=== PATIENT | female | born 1960 | race Caucasian/White ===

== ENCOUNTER 2016-09-30 14:25 | Emergency (ER) | payer BC ==
[2016-09-30 14:31] VITALS: BP 131/83; BMI 18.2
--- NOTE | 2016-09-30 15:29 | ED.ABDFE ---
HPI - PCP Primary Care Physician: MCKINLEY - Complaint Chief Complaint:: PT. C/O LOWER LEFT ABDOMINAL PAIN AND CRAMPING AND RECTAL BLEEDING. PT. STATES SHE WAS CONSTIPATED SATURDAY BUT THEN HAD DIARRHEA AFTER USING THE RESTROOM WHICH WAS BRIGHT RED IN COLOR. - Nurses notes reviewed Nurses Notes Review: Yes - Source History Provided: Patient - Mode of arrival Mode of Arrival: Ambulatory - Timing Onset of Chief Complaint: 09/27/16 PMH - PMH Past Medical History: Yes Past Medical History: COPD, Hypertension Past Medical History Comment: DIVERTICULITIS, FIBROMYALGIA, SPUR ON NECK Past Surgical History: Yes Surgical History: Hysterectomy, Tonsillectomy - Family History History of Family Medical Conditions: Yes Family Medical History: Cancer, [place], Coronary Artery Disease, Hypertension - Social History Does patient currently use any type of tobacco product: Yes Have you used tobacco products in the last 12 months: Yes Type of Tobacco Use: Cigarettes How many years tobacco product used: 30 Does any household member use tobacco: No Alcohol Use: Occasionally Do you use any recreational Drugs:: No Lives With: Spouse Lives Where: Home - infectious screening In the last 2 months have you had wt loss of >10#?: NO Have you had fever, night sweats or hemotysis?: No Have you traveled outside the country in the last 6 months?: No Isolation: Standard PE - Vital Signs Vitals: Temperature 98.3 F Pulse Rate 78 Respiratory Rate 18 Blood Pressure 131/83 O2 Sat by Pulse Oximetry 95 ROR - Labs Reviewed Result Diagrams: 09/30/16 15:37 09/30/16 15:37 Laboratory: WBC 9.4 X10^3/uL (3.6-10.0) 09/30/16 15:37 RBC 4.83 X10^6/uL (3.5-5.4) 09/30/16 15:37 Hgb 13.8 g/dL (12.0-16.0) 09/30/16 15:37 Hct 41.1 % (36.0-47.0) 09/30/16 15:37 MCV 85.1 fL (80.0-100.0) 09/30/16 15:37 MCH 28.6 pg (27.0-34.0) 09/30/16 15:37 MCHC 33.5 g/dL (33.0-35.0) 09/30/16 15:37 RDW 13.0 % (11.6-16.5) 09/30/16 15:37 Plt Count 255 X10^3/uL (150.0-450.0) 09/30/16 15:37 MPV 8.4 fL (7.4-11.0) 09/30/16 15:37 Neut % 65.4 % (42.0-75.0) 09/30/16 15:37 Lymph % 24.3 % (21.0-51.0) 09/30/16 15:37 [place] % 7.0 % (0.0-13.0) 09/30/16 15:37 Eos % 2.6 % (0.9-2.9) 09/30/16 15:37 Baso % 0.7 % (0.2-1.0) 09/30/16 15:37 Neut # 6.2 x10^3/uL (2.2-4.8) H 09/30/16 15:37 Lymph # 2.3 X10^3/uL (1.3-2.9) 09/30/16 15:37 [place] # 0.7 x10^3/uL (0.3-0.8) 09/30/16 15:37 Eos # 0.2 x10^3/uL (0.0-0.2) 09/30/16 15:37 Baso # 0.1 X10^3/uL (0.0-0.1) 09/30/16 15:37 Absolute Nucleated RBC 0.1 /100WBC 09/30/16 15:37 INR Target Range - 09/30/16 15:37 INR 0.99 (0.8-1.3) 09/30/16 15:37 PTT 24.3 SECONDS (22.9-36.5) 09/30/16 15:37 PTT Comment - 09/30/16 15:37 Sodium 143 mmol/L (136-145) 09/30/16 15:37 Corrected Sodium TNP 09/30/16 15:37 Potassium 3.0 mmol/L (3.5-5.1) L* 09/30/16 15:37 Chloride 107 mmol/L (98-107) 09/30/16 15:37 Carbon Dioxide 27.2 mmol/L (21-32) 09/30/16 15:37 BUN 8 mg/dL (7-18) 09/30/16 15:37 Creatinine 0.68 mg/dL (0.55-1.02) 09/30/16 15:37 Est GFR (MDRD) Af Amer > 60 (>60) 09/30/16 15:37 Est GFR (MDRD) Non-Af > 60 (>60) 09/30/16 15:37 Glucose 78 mg/dL (65-99) 09/30/16 15:37 Calcium 8.7 mg/dL (8.5-10.1) 09/30/16 15:37 Corrected Calcium TNP 09/30/16 15:37 Total Bilirubin 0.50 mg/dL (0.2-1.0) 09/30/16 15:37 AST 17 Units/L (15-37) 09/30/16 15:37 ALT 22 Units/L (12-78) 09/30/16 15:37 Alkaline Phosphatase 77 Units/L (46-116) 09/30/16 15:37 Total Protein 7.0 g/dL (6.4-8.2) 09/30/16 15:37 Albumin 3.6 g/dL (3.4-5.0) 09/30/16 15:37 Globulin 3.4 g/dL (2.5-4.5) 09/30/16 15:37 Albumin/Globulin Ratio 1.1 Ratio (1.1-2.1) 09/30/16 15:37 Specimen Type Clean catch urine 09/30/16 15:41 Urine Color Yellow (YELLOW) 09/30/16 15:41 Urine Appearance Hazy (CLEAR) 09/30/16 15:41 Urine pH 7.0 (5.0 - 8.0) 09/30/16 15:41 Ur Specific [place] 1.005 (1.000-1.030) 09/30/16 15:41 Urine Protein Negative (NEGATIVE) 09/30/16 15:41 Urine Glucose (UA) Negative (NEGATIVE) 09/30/16 15:41 Urine Ketones Negative (NEGATIVE) 09/30/16 15:41 Urine Occult Blood Negative (NEGATIVE) 09/30/16 15:41 Urine Nitrite Negative (NEGATIVE) 09/30/16 15:41 Urine Bilirubin Negative (NEGATIVE) 09/30/16 15:41 Urine Urobilinogen Normal (NORMAL) 09/30/16 15:41 Ur Leukocyte Esterase Negative (NEGATIVE) 09/30/16 15:41 Urine RBC 0-2 /HPF (NEGATIVE) 09/30/16 15:41 Urine WBC 3-5 /HPF (NEGATIVE) 09/30/16 15:41 Ur Squamous Epith Cells Rare /HPF (NEGATIVE) 09/30/16 15:41 Urine Bacteria Negative /HPF (NEGATIVE) 09/30/16 15:41 Ur Culture Indicated? No/not indicated 09/30/16 15:41 Stool Description Fob tube 09/30/16 15:55 Stl Occult Blood (IFOB) Positive (NEGATIVE) A 09/30/16 15:55 - Diagnosis Discharge Problem: Abdominal pain, GI bleed - Discharge Plan Condition: Stable Prescriptions: Pantoprazole Sodium 40 mg [Protonix Tab 40 mg] 40 mg PO DAILY #30 tab - Follow ups/Referrals Follow ups/Referrals: JESIKA SEN [Primary Care Provider] - 10/01/16 - Instructions Instructions: Gastrointestinal Bleeding, [id number], Abdominal Pain, Adult, [id number]
[2016-09-30 15:45] LABS: BASOPHILS # (AUTO) 0.1 X10^3/uL (0.0-0.1); BASOPHILS % (AUTO) 0.7 % (0.2-1.0); EOSINOPHILS # (AUTO) 0.2 x10^3/uL (0.0-0.2); EOSINOPHILS % (AUTO) 2.6 % (0.9-2.9); HEMATOCRIT 41.1 % (36.0-47.0); HEMOGLOBIN 13.8 g/dL (12.0-16.0); LYMPHOCYTES # (AUTO) 2.3 X10^3/uL (1.3-2.9); LYMPHOCYTES % (AUTO) 24.3 % (21.0-51.0); MEAN CORPUSCULAR HEMOGLOBIN 28.6 pg (27.0-34.0); MEAN CORPUSCULAR HGB CONC 33.5 g/dL (33.0-35.0); MEAN CORPUSCULAR VOLUME 85.1 fL (80.0-100.0); MEAN PLATELET VOLUME 8.4 fL (7.4-11.0); MONOCYTES # (AUTO) 0.7 x10^3/uL (0.3-0.8); NEUTROPHILS # (AUTO) 6.2 x10^3/uL (2.2-4.8); NEUTROPHILS % (AUTO) 65.4 % (42.0-75.0); PLATELET COUNT 255 X10^3/uL (150.0-450.0); RED BLOOD COUNT 4.83 X10^6/uL (3.5-5.4); WHITE BLOOD COUNT 9.4 X10^3/uL (3.6-10.0)
[2016-09-30 15:54] LABS: BLOOD UREA NITROGEN 8 mg/dL (7-18); CALCIUM 8.7 mg/dL (8.5-10.1); CARBON DIOXIDE 27.2 mmol/L (21-32); CHLORIDE 107 mmol/L (98-107); CREATININE 0.68 mg/dL (0.55-1.02); GLUCOSE 78 mg/dL (65-99); SODIUM 143 mmol/L (136-145); eGFR BLACK RACES > 60 (>60); eGFR NON BLACK RACES > 60 (>60)
[2016-09-30 15:59] LABS: ALANINE AMINOTRANSFERASE 22 Units/L (12-78); ALBUMIN 3.6 g/dL (3.4-5.0); ALKALINE PHOSPHATASE 77 Units/L (46-116); ASPARTATE AMINO TRANSFERASE 17 Units/L (15-37)
[2016-09-30 16:02] LABS: BILIRUBIN,URINE NEGATIVE (NEGATIVE); BLOOD/HEMOGLOBIN,URINE NEGATIVE (NEGATIVE); GLUCOSE, URINE NEGATIVE (NEGATIVE); KETONES,URINE NEGATIVE (NEGATIVE); LEUKOCYTE ESTERASE ,URINE NEGATIVE (NEGATIVE); NITRITES,URINE NEGATIVE (NEGATIVE); PROTEIN,URINE NEGATIVE (NEGATIVE); UROBILINOGEN,URINE NORMAL (NORMAL)
[2016-09-30 16:09] LABS: APPEARANCE,URINE HAZY (CLEAR); BACTERIA,URINE NEGATIVE /HPF (NEGATIVE); COLOR,URINE YELLOW (YELLOW); RBC,URINE 0-2 /HPF (NEGATIVE); SQUAMOUS EPITHELIAL CELL,UR RARE /HPF (NEGATIVE)
[2016-09-30] MEDS ORDERED: DEMEROL INJ IM ONE (17:03)
[2016-09-30] MEDS ORDERED: ZOFRAN INJ 4 MG VIAL IM ONE (17:03)
[2016-09-30] MEDS ORDERED: ZOFRAN INJ 4 MG VIAL ONE (17:17)
[2016-09-30] MEDS ORDERED: DEMEROL INJ ONE (17:18)
--- NOTE | 2016-09-30 17:43 | CT ---
HISTORY: Abdominal pain Study: CT abdomen and pelvis without contrast Comparison: None Technique: Multiple axial images of the abdomen and pelvis were obtained from the lung bases to the pubic symph ysis without the administration of IV contrast. Findings: Atelectasis and scarring are seen within the visualized lungs. The liver, spleen, pancreas, adrenals , and kidneys are grossly unremarkable in appearance given the limitations of this noncontrast exam. No CT evidence of hydronephrosis is identified. The appendix is partially air-filled and otherwise grossly unremarkable. Evaluation of the stomach, small bowel, and colon is limited without oral cont rast. There appears to be fluid within the cecum which is a nonspecific finding. Atherosclerotic mackenzie nges are seen within the visualized aorta. The urinary bladder is grossly unremarkable. Degenerative changes are seen within the visualized spine. If symptoms persist recommend continued followup for further evaluation. By history the uterus has been surgically removed. IMPRESSION: 1. No CT evidence of acute disease within the abdomen or pelvis is appreciated. Reported By:
[2016-09-30] MEDS ORDERED: POTASSIUM CHLORIDE LIQ 20 MEQ UDC PO ONE (17:52)
[2016-09-30] MEDS ORDERED: POTASSIUM CHLORIDE LIQ 20 MEQ UDC ONE (18:24)
[2016-09-30] MEDS ORDERED: PROTONIX TAB 40 MG PO ONE ×2 (18:24→18:27)
== END 2016-09-30 18:33 | disposition home or self-care (01) ==
LOC: ER 14:34
DX: K92.2 Gastrointestinal hemorrhage, unspecified (principal); R10.84 Generalized abdominal pain
CPT/HCPCS: 36415; 74176; 80053; 81001; 82270; 85025; 85610; 85730; 96372; 99282; 99283; J2175; J2405

== ENCOUNTER 2021-03-20 19:25 | Inpatient (IN) ==
[2021-03-20 19:46] VITALS: BMI 18.2
[2021-03-20 19:49] LABS: ABG BASE EXCESS -5.9 mmol/L (-2.0-2.0); ABG HCO3 19.5 mmol/L (22-26)
[2021-03-20] MEDS ORDERED: DUONEB 0.5 MG/3 MG (3 mL) NEB ONE ×2 (20:02→20:05)
[2021-03-20 20:04] LABS: BASOPHILS % (AUTO) 0.3 % (0.2-1.0); EOSINOPHILS # (AUTO) 0.1 x10^3/uL (0.0-0.2); EOSINOPHILS % (AUTO) 0.8 % (0.9-2.9); HEMATOCRIT 34.1 % (36.0-47.0); HEMOGLOBIN 11.4 g/dL (12.0-16.0); LYMPHOCYTES # (AUTO) 0.8 X10^3/uL (1.3-2.9); LYMPHOCYTES % (AUTO) 7.9 % (21.0-51.0); MEAN CORPUSCULAR HEMOGLOBIN 27.4 pg (27.0-34.0); MEAN CORPUSCULAR HGB CONC 33.4 g/dL (33.0-35.0); MEAN PLATELET VOLUME 7.5 fL (7.4-11.0); MONOCYTES # (AUTO) 0.5 x10^3/uL (0.3-0.8); MONOCYTES % (AUTO) 5.5 % (0.0-13.0); NEUTROPHILS # (AUTO) 8.3 x10^3/uL (2.2-4.8); NEUTROPHILS % (AUTO) 85.5 % (42.0-75.0); PLATELET COUNT 267 X10^3/uL (150.0-450.0); RED BLOOD COUNT 4.16 X10^6/uL (3.5-5.4); WHITE BLOOD COUNT 9.7 X10^3/uL (3.6-10.0)
[2021-03-20 20:11] LABS: ABG BASE EXCESS -6.1 mmol/L (-2.0-2.0); ABG HCO3 18.9 mmol/L (22-26)
[2021-03-20 20:23] LABS: ALANINE AMINOTRANSFERASE 16 Units/L (12-78); ALBUMIN 2.7 g/dL (3.4-5.0); ALKALINE PHOSPHATASE 79 Units/L (46-116); ASPARTATE AMINO TRANSFERASE 23 Units/L (15-37); BLOOD UREA NITROGEN 19 mg/dL (7-18); CARBON DIOXIDE 22.1 mmol/L (21-32); CHLORIDE 104 mmol/L (98-107); CREATINE KINASE 40 Units/L (26-192); CREATINE KINASE MB 2.4 ng/mL (0-4.0); CREATININE 1.03 mg/dL (0.55-1.02); MAGNESIUM 1.7 mg/dL (1.7-2.9); SODIUM 138 mmol/L (136-145); TOTAL PROTEIN 6.7 g/dL (6.4-8.2); TROPONIN I < 0.02 ng/mL (0-1.5); eGFR NON BLACK RACES 58 (>60)
--- NOTE | 2021-03-20 20:45 | DR.SOBA ---
HPI Time Seen Time Seen by Provider: 03/20/21 20:00 Primary Care Physician Primary Care Physician: ARIELLE HPI Comment HPI Comment: Worsening sob and wheezing x 10 days despite medications given at ER on 03/10; using nebulizers and on chronic oxygen which was on 5L when she came in; bipap placed prior to my arrival and most of hx obtained from who says he got home around 7pm and noted her situation deteriorating she's been intubated in the past but neither can tell me when; she does want to be intubated again if necessary Complaints Chief Complaint:: PT C/O BEING SOB SINCE 03-10-21 PT IS VAZQUEZ IN COLOR STUGGLING TO BREATH Source History Provided: Patient Mode of Arrival Mode of Arrival: Wheelchair Timing Onset of Chief Complaint: 03/10/21 PMH PMH Past Medical History: Yes Past Medical History: Arthritis, COPD and Hypertension Past Surgical History: Yes Surgical History: , Hysterectomy and Tonsillectomy Family History History of Family Medical Conditions: Yes Family Medical History: Cancer, [place], Coronary Artery Disease and Hypertension Social History Does any household member use tobacco: No Alcohol Use: None Do you use any recreational Drugs:: No Lives With: Spouse Lives Where: Home Infectious screening In the last 2 months have you had wt loss of >10#?: NO Have you had fever, night sweats or hemotysis?: No Have you traveled outside the country in the last 6 months?: No Isolation: Droplet ROS Review of Systems Constitutional: No Symptoms Reported Eyes: No Symptoms Reported ENTM: No Symptoms Reported Cardiovascular: No Symptoms Reported Gastrointestinal/Abdominal: No Symptoms Reported Genitourinary: No Symptoms Reported Neurological: No Symptoms Reported Musculoskeletal: No Symptoms Reported Integumentary: No Symptoms Reported Hematologic/Lymphatic: No Symptoms Reported Endocrine: No Symptoms Reported Psychiatric: No Symptoms Reported PE Vital Signs Vitals: Temperature 98.4 F Pulse Rate 81 Respiratory Rate 52 Blood Pressure [Left Arm] 138/67 Blood Pressure 117/58 O2 Sat by Pulse Oximetry 96 General Limitations: No Limitations General Appearance: Alert and In No Apparent Distress Head Head Exam: Normal Inspection Eyes Eye exam: Normal Appearance ENT ENT Exam: Normal Exam Neck Neck Exam: Normal Inspection Chest Chest Inspection: Normal Inspection and Symmetric Chest Wall Rise Respiratory Respiratory Exam: Accessory Muscle Use, Prolonged Expiratory Phase and Respiratory Distress Respiratory Exam: Bilateral: Wheezing (few scattered wheezes rt greater than lt) and Lower: Wheezing (few scattered wheezes rt greater than lt) Cardiovascular Cardiovascular Exam: Normal Rhythm and Tachycardia Abdominal Exam Abdominal Exam: Normal Inspection, Normal Bowel Sounds and Soft Extremities Extremities Exam: Normal Inspection Back Back Exam: Normal Inspection Neurologic Neurological Exam: Alert and Oriented X3 Psychiatric Psychiatric Exam: Normal Affect and Normal Mood Skin Skin Exam: Warm, Dry, Intact and Normal Color MDM Differential Diagnosis Differential Diagnosis: Asthma, COPD, Pneumonia, Pulmonary embolism, Respiratory Failure and Respiratory Insufficiency COURSE Reevaluation 1st: Unchanged 2nd: Improved (lying against railing with bipap in place) Consultation Call Returned: 00:00 (Dr Vieira accepts admission.) ROR Labs Reviewed Laboratory Results Reviewed?: Yes Result Diagrams: 03/20/21 19:52 03/20/21 19:52 Laboratory: WBC 9.7 X10^3/uL (3.6-10.0) 03/20/21 19:52 RBC 4.16 X10^6/uL (3.5-5.4) 03/20/21 19:52 Hgb 11.4 g/dL (12.0-16.0) L 03/20/21 19:52 Hct 34.1 % (36.0-47.0) L 03/20/21 19:52 MCV 82.0 fL (80.0-100.0) 03/20/21 19:52 MCH 27.4 pg (27.0-34.0) 03/20/21 19:52 MCHC 33.4 g/dL (33.0-35.0) 03/20/21 19:52 RDW 14.0 % (11.6-16.5) 03/20/21 19:52 Plt Count 267 X10^3/uL (150.0-450.0) 03/20/21 19:52 MPV 7.5 fL (7.4-11.0) 03/20/21 19:52 Neut % (Auto) 85.5 % (42.0-75.0) H 03/20/21 19:52 Lymph % (Auto) 7.9 % (21.0-51.0) L 03/20/21 19:52 [place] % (Auto) 5.5 % (0.0-13.0) 03/20/21 19:52 Eos % (Auto) 0.8 % (0.9-2.9) L 03/20/21 19:52 Baso % (Auto) 0.3 % (0.2-1.0) 03/20/21 19:52 Neut # (Auto) 8.3 x10^3/uL (2.2-4.8) H 03/20/21 19:52 Lymph # (Auto) 0.8 X10^3/uL (1.3-2.9) L 03/20/21 19:52 [place] # (Auto) 0.5 x10^3/uL (0.3-0.8) 03/20/21 19:52 Eos # (Auto) 0.1 x10^3/uL (0.0-0.2) 03/20/21 19:52 Baso # (Auto) 0.0 X10^3/uL (0.0-0.1) 03/20/21 19:52 Absolute Nucleated RBC 0.0 /100WBC 03/20/21 19:52 PT 13.4 SECONDS (11.8-14.3) 03/20/21 19:52 INR Target Range - 03/20/21 19:52 INR 1.07 (0.8-1.3) 03/20/21 19:52 APTT 24.8 SECONDS (22.9-36.5) 03/20/21 19:52 PTT Comment - 03/20/21 19:52 D-Dimer 3.42 ug/ml (0.0-0.57) H* 03/20/21 19:52 Sample Site Lb 03/20/21 20:04 ABG pH 7.340 (7.35-7.45) L 03/20/21 20:04 ABG pCO2 35.0 mmHg (35.0-45.0) 03/20/21 20:04 ABG pO2 68.0 mmHg (80.0-100.0) L 03/20/21 20:04 ABG HCO3 18.9 mmol/L (22-26) L 03/20/21 20:04 ABG O2 Saturation 92.0 % (90-100) 03/20/21 20:04 ABG Base Excess -6.1 mmol/L (-2.0-2.0) L 03/20/21 20:04 Laz Test N/a 03/20/21 20:04 A-a Gradient 530.0 mmHg 03/20/21 20:04 FiO2 90.0 03/20/21 20:04 Blood Gas Comments Tino well ae 03/20/21 20:04 Sodium 138 mmol/L (136-145) 03/20/21 19:52 Corrected Sodium TNP 03/20/21 19:52 Potassium 3.2 mmol/L (3.5-5.1) L 03/20/21 19:52 Chloride 104 mmol/L (98-107) 03/20/21 19:52 Carbon Dioxide 22.1 mmol/L (21-32) 03/20/21 19:52 BUN 19 mg/dL (7-18) H 03/20/21 19:52 Creatinine 1.03 mg/dL (0.55-1.02) H 03/20/21 19:52 Est GFR (MDRD) Af Amer > 60 (>60) 03/20/21 19:52 Est GFR (MDRD) Non-Af 58 (>60) L 03/20/21 19:52 Glucose 101 mg/dL (65-99) H 03/20/21 19:52 Calcium 8.0 mg/dL (8.5-10.1) L 03/20/21 19:52 Corrected Calcium 9.0 mg/dL (8.5-10.1) 03/20/21 19:52 Magnesium 1.7 mg/dL (1.7-2.9) 03/20/21 19:52 Total Bilirubin 0.40 mg/dL (0.2-1.0) 03/20/21 19:52 AST 23 Units/L (15-37) 03/20/21 19:52 ALT 16 Units/L (12-78) 03/20/21 19:52 Alkaline Phosphatase 79 Units/L (46-116) 03/20/21 19:52 Creatine Kinase 40 Units/L (26-192) 03/20/21 19:52 CK-MB (CK-2) 2.4 ng/mL (0-4.0) 03/20/21 19:52 CK/CKMB % Calc 6.0 % (<4) 03/20/21 19:52 Troponin I < 0.02 ng/mL (0-1.5) 03/20/21 19:52 B-Natriuretic Peptide 48.0 pg/mL (0-79) 03/20/21 19:52 Total Protein 6.7 g/dL (6.4-8.2) 03/20/21 19:52 Albumin 2.7 g/dL (3.4-5.0) L 03/20/21 19:52 Globulin 4.0 g/dL (2.5-4.5) 03/20/21 19:52 Albumin/Globulin Ratio 0.7 Ratio (1.1-2.1) L 03/20/21 19:52 Specimen Type Catherized urine 03/20/21 20:45 Urine Color Yellow (YELLOW) 03/20/21 20:45 Urine Appearance Clear (CLEAR) 03/20/21 20:45 Urine pH 6.0 (5.0 - 8.0) 03/20/21 20:45 Ur Specific [place] 1.010 (1.000-1.030) 03/20/21 20:45 Urine Protein 2+ (NEGATIVE) 03/20/21 20:45 Urine Glucose (UA) Negative (NEGATIVE) 03/20/21 20:45 Urine Ketones Negative (NEGATIVE) 03/20/21 20:45 Urine Occult Blood 1+ (NEGATIVE) 03/20/21 20:45 Urine Nitrite Negative (NEGATIVE) 03/20/21 20:45 Urine Bilirubin Negative (NEGATIVE) 03/20/21 20:45 Urine Urobilinogen Normal (NORMAL) 03/20/21 20:45 Ur Leukocyte Esterase Negative (NEGATIVE) 03/20/21 20:45 Urine RBC 5-10 /HPF (0-3) A 03/20/21 20:45 Urine WBC 3-5 /HPF (0-5) 03/20/21 20:45 Ur Squamous Epith Cells Rare /HPF (NEGATIVE) 03/20/21 20:45 Urine Bacteria Trace /HPF (NEGATIVE) 03/20/21 20:45 Ur Culture Indicated? No/not indicated 03/20/21 20:45 Other Results Comments: pO2 increased from 29 on 5L to 90 via bipap; admit and treat PE and copd exacerbation XRAY XRAY Interpreted by: Radiologist X-ray Results: cta: 1. Small amount of clot to the right upper lobe consistent with pulmonary embolus. 2. Right/left ventricular diameter ratio is 1.0 at the upper limits of normal. 3. COPD and interstitial fibrosis. cxr: 1. Bilateral lower lobe interstitial thickening and early alveolar opacities. Differential considerations include aspiration or edema. 2. Findings of COPD. Opioid Opioid Risk Tool Age ([place] box if 16-45): No History of Preadolescent Sexual Abuse: No Total: 0 Total Score Risk Category: Low Risk Copyright: [facility] predicting aberrant behaviors Diagnosis Discharge Problem: COPD exacerbation, Hypoxia, Pulmonary fibrosis Pulmonary embolism Qualifiers: Pulmonary embolism type: single subsegmental (without acute cor pulmonale) Qualified Code(s): I26.93 - Single subsegmental pulmonary embolism without acute cor pulmonale Instructions Forms: [facility] Social Distancing ADDITIONAL NOTES Additional Notes Additional Notes: 30+ min critical care time for: rul PE, resp failure requiring cpap, hypoxia, copd exacerbation O2 29 on 5L with sats in 30s; placed on cpap with significant improvement; abx and steroids administered as well; discussion re; admission, abx and steroids with paige wong d/aayush admitting doctor.
[2021-03-20 20:56] LABS: BILIRUBIN,URINE NEGATIVE (NEGATIVE); BLOOD/HEMOGLOBIN,URINE 1+ (NEGATIVE); GLUCOSE, URINE NEGATIVE (NEGATIVE); KETONES,URINE NEGATIVE (NEGATIVE); LEUKOCYTE ESTERASE ,URINE NEGATIVE (NEGATIVE); NITRITES,URINE NEGATIVE (NEGATIVE); PROTEIN,URINE 2+ (NEGATIVE); UROBILINOGEN,URINE NORMAL (NORMAL)
--- NOTE | 2021-03-20 21:00 | RAD ---
CHEST, 1 VIEWHISTORY: Shortness of breathStudy: AP view of the chest.Comparison:March 12, 2021Findings:The cardiomediastinal silhouette is normal. Bilateral lower lobe interstitial thickening and early alveolar opacities. Osseous structures demonstrate no acute abnormality. Bilateral hyperexpansion and interstitial prominence.IMPRESSION:1. Bilateral lower lobe interstitial thickening and early alveolar opacities. Differential considerations include aspiration or edema.2. Findings of COPD.Electronically signed by: SUE QUINN (Mar 20, 2021 20:58:46)
[2021-03-20 21:11] LABS: APPEARANCE,URINE CLEAR (CLEAR); BACTERIA,URINE TRACE /HPF (NEGATIVE); COLOR,URINE YELLOW (YELLOW); SQUAMOUS EPITHELIAL CELL,UR RARE /HPF (NEGATIVE)
[2021-03-20] MEDS ORDERED: SOLU-Medrol 125 MG VIAL IVP ONE (21:49)
[2021-03-20] MEDS ORDERED: ROCEPHIN 1 GRAM IV PREMIX 1 G/50 ML IV.SOLN. IV ONE ×2 (21:50→21:55)
[2021-03-20] MEDS ORDERED: SOLU-Medrol 125 MG VIAL ONE (21:55)
--- NOTE | 2021-03-20 23:42 | CT ---
PROCEDURE: CTA Chest .HISTORY: Hypoxia and respiratory failure.TECHNIQUE: Axial images were performed through the chest with the administration of IV contrast with multiplanar reformations . 3D and MIPS reconstructions were performed and reviewed. Dose reduction techniques including Automated Exposure Control (AEC) and adjustment of mA and kV were utilized .COMPARISON: None .TECHNICAL QUALITY: Satisfactory .FINDINGS:Mild atherosclerosis aorta with no aneurysm or dissection.There is some clot in secondary and tertiary branches extending to the anterior aspect of the right upper lobe consistent with mild pulmonary embolus. No other clot visualized.Mediastinum and hilar regions show no masses or lymphadenopathy.Normal size heart with no pericardial fluid. Right/left ventricular diameter ratio was 1.0.Emphysematous changes throughout both lung cast. Interstitial scarring at the bases with peripheral fibrosis. No pulmonary consolidation or masses. No pleural fluid.Visualized upper abdomen is unremarkable.No acute bony abnormality.IMPRESSION:1. Small amount of clot to the right upper lobe consistent with pulmonary embolus.2. Right/left ventricular diameter ratio is 1.0 at the upper limits of normal.3. COPD and interstitial fibrosis.Electronically signed by: Jonathan Rock (Mar 20, 2021 23:40:30)
[2021-03-21] MEDS ORDERED: ROCEPHIN VIAL 1 GRAM 1 G in NS 100 ML IV + SPIKE MINIBAG* 100 ML IV SCH (00:48)
[2021-03-21] MEDS: ELIQUIS PO SCH ×3 (03:18→20:17)
[2021-03-21] MEDS: NS 1,000 ML IV 1,000 ML IV SCH ×4 (03:18→18:02)
[2021-03-21] MEDS ORDERED: MILK OF MAGNESIA PO PRN (03:42)
[2021-03-21] MEDS: PROVENTIL NEB TX 0.083% 2.5MG/ 3ML NEB SCH ×5 (04:57→20:12)
[2021-03-21 05:32] LABS: BASOPHILS % (AUTO) 0.3 % (0.2-1.0); HEMATOCRIT 33.5 % (36.0-47.0); HEMOGLOBIN 11.2 g/dL (12.0-16.0); LYMPHOCYTES # (AUTO) 0.3 X10^3/uL (1.3-2.9); LYMPHOCYTES % (AUTO) 4.7 % (21.0-51.0); MEAN CORPUSCULAR HEMOGLOBIN 27.5 pg (27.0-34.0); MEAN CORPUSCULAR HGB CONC 33.4 g/dL (33.0-35.0); MEAN CORPUSCULAR VOLUME 82.1 fL (80.0-100.0); MONOCYTES # (AUTO) 0.1 x10^3/uL (0.3-0.8); MONOCYTES % (AUTO) 1.5 % (0.0-13.0); NEUTROPHILS # (AUTO) 6.3 x10^3/uL (2.2-4.8); NEUTROPHILS % (AUTO) 93.5 % (42.0-75.0); PLATELET COUNT 222 X10^3/uL (150.0-450.0); RED BLOOD COUNT 4.08 X10^6/uL (3.5-5.4); RED CELL DISTRIBUTION WIDTH 14.2 % (11.6-16.5); WHITE BLOOD COUNT 6.7 X10^3/uL (3.6-10.0)
[2021-03-21 05:43] LABS: ALANINE AMINOTRANSFERASE 15 Units/L (12-78); ALBUMIN 2.5 g/dL (3.4-5.0); ALKALINE PHOSPHATASE 73 Units/L (46-116); ASPARTATE AMINO TRANSFERASE 21 Units/L (15-37); BLOOD UREA NITROGEN 20 mg/dL (7-18); CARBON DIOXIDE 20.5 mmol/L (21-32); CHLORIDE 105 mmol/L (98-107); COR CA(FOR HYPOALB) 9.2 mg/dL (8.5-10.1); COR NA(FOR HYPERGLY) 139 mmol/L (136-145); CREATININE 0.92 mg/dL (0.55-1.02); SODIUM 139 mmol/L (136-145); TOTAL PROTEIN 6.4 g/dL (6.4-8.2); eGFR NON BLACK RACES > 60 (>60)
[2021-03-21 06:19] LABS: BAND NEUTROPHILS % 3 % (0-10); PLATELET MORPHOLOGY COMMENT NORMAL (NORMAL)
[2021-03-21] MEDS: PULMICORT NEB TX 0.5 MG NEB SCH ×2 (08:50→20:12)
[2021-03-21] MEDS ORDERED: ZESTRIL TAB 20 MG ONE (08:53)
[2021-03-21] MEDS ORDERED: SOLU-Medrol 125 MG VIAL IVP SCH (09:00)
[2021-03-21] MEDS ORDERED: PREDNISONE TAB 20 MG PO SCH (09:00)
[2021-03-21] MEDS: ALDACTONE TAB 25 MG PO SCH (09:08)
[2021-03-21] MEDS: DEPAKOTE D.R. TAB PO SCH (09:09)
[2021-03-21] MEDS: ZESTRIL TAB 20 MG PO SCH (09:09)
[2021-03-21] MEDS: CYMBALTA PO SCH ×2 (09:09→20:16)
[2021-03-21] MEDS ORDERED: ZITHROMAX INJ 500 MG VIAL 500 MG in NS 250 ML IV 250 ML IV SCH (09:27)
[2021-03-21] MEDS ORDERED: PERIACTIN TAB 4 MG PO PRN (09:30)
[2021-03-21] MEDS ORDERED: PULMICORT NEB TX 0.5 MG NEB SCH (09:45)
[2021-03-21] MEDS ORDERED: PHARMACY CONSULT - IVERMECTIN XX SCH ×2 (10:00)
[2021-03-21] MEDS: PEPCID TAB 40 MG PO SCH ×2 (10:30→20:18)
[2021-03-21] MEDS: VITAMIN D (1.25MG) PO SCH (10:31)
[2021-03-21] MEDS: LIPITOR TAB 80 MG PO SCH (10:31)
[2021-03-21] MEDS: IVERMECTIN PO SCH (10:31)
[2021-03-21] MEDS: THIAMINE HCL INJ IVP SCH ×2 (10:31→20:23)
[2021-03-21] MEDS: CYTOTEC PO SCH ×4 (10:31→20:17)
[2021-03-21] MEDS: PROTONIX INJ 40 MG VIAL IVP SCH ×2 (10:31→20:19)
[2021-03-21] MEDS: SOLU-Medrol 125 MG VIAL IVP SCH ×3 (10:32→20:22)
[2021-03-21] MEDS: ZINC SULFATE PO SCH ×2 (10:32→20:24)
[2021-03-21] MEDS: VITAMIN A PO SCH ×2 (10:32)
[2021-03-21] MEDS: ASCORBIC ACID INJ MULTI-DOSE VIAL 1,500 MG in NS 100 ML IV 100 ML IV SCH ×4 (10:33→20:13)
[2021-03-21] MEDS: MELATONIN PO SCH (20:18)
[2021-03-21] MEDS: ROCEPHIN VIAL 1 GRAM 1 G in NS 100 ML IV + SPIKE MINIBAG* 100 ML IV SCH (20:21)
[2021-03-21] MEDS ORDERED: COLACE CAP 100 MG PO SCH (21:00)
[2021-03-21] MEDS ORDERED: ROXICODONE TAB 5 MG PO PRN (22:31)
[2021-03-21] MEDS: CLEOCIN 600 MG IV PREMIX 600 MG/50 ML BAG IV SCH (23:01)
[2021-03-22] MEDS: ATIVAN INJ 2 MG VIAL IVP PRN ×3 (00:08→21:00)
[2021-03-22] MEDS: PROVENTIL NEB TX 0.083% 2.5MG/ 3ML NEB SCH ×6 (00:21→21:22)
[2021-03-22 00:38] LABS: ABG ALLEN TEST POS; ABG BASE EXCESS -4.8 mmol/L (-2.0-2.0); ABG HCO3 20.5 mmol/L (22-26)
[2021-03-22] MEDS: NS 1,000 ML IV 1,000 ML IV SCH ×2 (03:00→06:44)
[2021-03-22] MEDS: ASCORBIC ACID INJ MULTI-DOSE VIAL 1,500 MG in NS 100 ML IV 100 ML IV SCH ×4 (03:12→20:18)
[2021-03-22] MEDS: SOLU-Medrol 125 MG VIAL IVP SCH ×4 (03:15→20:22)
[2021-03-22 05:06] LABS: ABG ALLEN TEST POS; ABG BASE EXCESS -3.8 mmol/L (-2.0-2.0); ABG HCO3 20.7 mmol/L (22-26)
[2021-03-22 05:41] LABS: BASOPHILS % (AUTO) 0.3 % (0.2-1.0); EOSINOPHILS % (AUTO) 0.1 % (0.9-2.9); HEMOGLOBIN 9.6 g/dL (12.0-16.0); LYMPHOCYTES # (AUTO) 0.3 X10^3/uL (1.3-2.9); LYMPHOCYTES % (AUTO) 4.6 % (21.0-51.0); MEAN CORPUSCULAR HEMOGLOBIN 27.7 pg (27.0-34.0); MEAN CORPUSCULAR HGB CONC 33.3 g/dL (33.0-35.0); MEAN CORPUSCULAR VOLUME 83.3 fL (80.0-100.0); MEAN PLATELET VOLUME 7.8 fL (7.4-11.0); MONOCYTES # (AUTO) 0.3 x10^3/uL (0.3-0.8); MONOCYTES % (AUTO) 5.3 % (0.0-13.0); NEUTROPHILS # (AUTO) 5.5 x10^3/uL (2.2-4.8); NEUTROPHILS % (AUTO) 89.7 % (42.0-75.0); PLATELET COUNT 213 X10^3/uL (150.0-450.0); RED BLOOD COUNT 3.48 X10^6/uL (3.5-5.4); RED CELL DISTRIBUTION WIDTH 14.2 % (11.6-16.5); WHITE BLOOD COUNT 6.2 X10^3/uL (3.6-10.0)
[2021-03-22 05:56] LABS: ALANINE AMINOTRANSFERASE 13 Units/L (12-78); ALBUMIN 2.3 g/dL (3.4-5.0); ALKALINE PHOSPHATASE 72 Units/L (46-116); ASPARTATE AMINO TRANSFERASE 20 Units/L (15-37); BLOOD UREA NITROGEN 25 mg/dL (7-18); CALCIUM 7.7 mg/dL (8.5-10.1); CARBON DIOXIDE 20.4 mmol/L (21-32); CHLORIDE 111 mmol/L (98-107); COR CA(FOR HYPOALB) 9.1 mg/dL (8.5-10.1); COR NA(FOR HYPERGLY) 147 mmol/L (136-145); CREATININE 1.02 mg/dL (0.55-1.02); SODIUM 145 mmol/L (136-145); TOTAL PROTEIN 5.7 g/dL (6.4-8.2); eGFR NON BLACK RACES 59 (>60)
[2021-03-22] MEDS ORDERED: POTASSIUM CHLORIDE LIQ 20 MEQ UDC PO PRN (06:01)
[2021-03-22] MEDS ORDERED: KLOR-CON PO PRN (06:01)
[2021-03-22] MEDS ORDERED: POTASSIUM CHL 60 MEQ/NS 0.45% 500 ML IV PRN (06:01)
[2021-03-22] MEDS ORDERED: MAGNESIUM SULFATE 1 GRAM/100 mL PREMIX 1 G/100 ML BAG IV PRN (06:01)
[2021-03-22] MEDS ORDERED: K-DUR TAB 20 MEQ PO PRN (06:01)
[2021-03-22] MEDS ORDERED: MICRO K EXTEN CAP 10 MEQ PO PRN (06:01)
[2021-03-22] MEDS ORDERED: POTASSIUM CHL 40 MEQ/NS 0.45% 500 ML IV PRN (06:01)
[2021-03-22] MEDS: CLEOCIN 600 MG IV PREMIX 600 MG/50 ML BAG IV SCH ×3 (06:31→22:54)
[2021-03-22] MEDS: K-RIDER 10 MEQ/NS 100 ML 10 MEQ/100 ML BAG IV PRN (06:44)
[2021-03-22] MEDS: PULMICORT NEB TX 0.5 MG NEB SCH ×2 (08:45→21:22)
[2021-03-22] MEDS ORDERED: SODIUM CHLORIDE IV NR (09:00)
[2021-03-22] MEDS ORDERED: POTASSIUM CHLORIDE IV NR (09:00)
[2021-03-22] MEDS ORDERED: ZESTRIL TAB 20 MG ONE (09:02)
[2021-03-22] MEDS: CYTOTEC PO SCH ×3 (09:11→12:14)
[2021-03-22] MEDS: CYMBALTA PO SCH (09:11)
[2021-03-22] MEDS: PROTONIX INJ 40 MG VIAL IVP SCH ×2 (09:23→20:21)
[2021-03-22] MEDS: ALDACTONE TAB 25 MG PO SCH ×3 (09:23→12:11)
[2021-03-22] MEDS: PEPCID TAB 40 MG PO SCH ×2 (09:24→12:12)
[2021-03-22] MEDS: ZESTRIL TAB 20 MG PO SCH (09:24)
[2021-03-22] MEDS: ZINC SULFATE PO SCH ×2 (09:25→12:12)
[2021-03-22] MEDS: VITAMIN D (1.25MG) PO SCH ×2 (09:25→12:11)
[2021-03-22] MEDS: THIAMINE HCL INJ IVP SCH ×2 (09:25→20:25)
[2021-03-22] MEDS: VITAMIN A PO SCH ×2 (09:25→12:11)
[2021-03-22] MEDS: LIPITOR TAB 80 MG PO SCH ×2 (09:26→12:12)
[2021-03-22] MEDS: IVERMECTIN PO SCH ×2 (09:26→12:10)
[2021-03-22] MEDS: ELIQUIS PO SCH ×2 (09:27→12:11)
[2021-03-22] MEDS: DEPAKOTE D.R. TAB PO SCH ×2 (09:27→12:13)
[2021-03-22] MEDS ORDERED: FLUVOXAMINE MALEATE PO SCH (10:00)
[2021-03-22] MEDS: LR 1,000 ML IV 1,000 ML IV SCH ×2 (10:11→18:27)
[2021-03-22] MEDS: FLUVOXAMINE MALEATE PO SCH (11:13)
[2021-03-22] MEDS ORDERED: APRESOLINE INJ 20 MG VIAL IVP PRN (12:33)
[2021-03-22] MEDS: LOVENOX INJ 60 MG SYR SC SCH ×2 (13:38→20:19)
[2021-03-22] MEDS: PEPCID 20 MG IV PREMIX* 20 MG/50 ML BAG IV SCH ×2 (13:39→21:00)
[2021-03-22 21:24] LABS: ABG ALLEN TEST POS; ABG BASE EXCESS -5.7 mmol/L (-2.0-2.0); ABG HCO3 19.4 mmol/L (22-26)
[2021-03-22 21:26] LABS: BASOPHILS % (AUTO) 0.2 % (0.2-1.0); HEMATOCRIT 28.5 % (36.0-47.0); HEMOGLOBIN 9.6 g/dL (12.0-16.0); LYMPHOCYTES # (AUTO) 0.3 X10^3/uL (1.3-2.9); LYMPHOCYTES % (AUTO) 2.5 % (21.0-51.0); MEAN CORPUSCULAR HEMOGLOBIN 27.8 pg (27.0-34.0); MEAN CORPUSCULAR HGB CONC 33.8 g/dL (33.0-35.0); MEAN CORPUSCULAR VOLUME 82.4 fL (80.0-100.0); MEAN PLATELET VOLUME 7.8 fL (7.4-11.0); MONOCYTES # (AUTO) 0.5 x10^3/uL (0.3-0.8); MONOCYTES % (AUTO) 5.3 % (0.0-13.0); NEUTROPHILS # (AUTO) 9.4 x10^3/uL (2.2-4.8); PLATELET COUNT 288 X10^3/uL (150.0-450.0); RED BLOOD COUNT 3.46 X10^6/uL (3.5-5.4); RED CELL DISTRIBUTION WIDTH 14.4 % (11.6-16.5); WHITE BLOOD COUNT 10.2 X10^3/uL (3.6-10.0)
[2021-03-22 21:35] LABS: ALANINE AMINOTRANSFERASE 16 Units/L (12-78); ALBUMIN 2.4 g/dL (3.4-5.0); ALKALINE PHOSPHATASE 80 Units/L (46-116); ASPARTATE AMINO TRANSFERASE 21 Units/L (15-37); BLOOD UREA NITROGEN 26 mg/dL (7-18); CALCIUM 7.8 mg/dL (8.5-10.1); CARBON DIOXIDE 21.3 mmol/L (21-32); CHLORIDE 113 mmol/L (98-107); COR CA(FOR HYPOALB) 9.1 mg/dL (8.5-10.1); COR NA(FOR HYPERGLY) 150 mmol/L (136-145); CREATININE 1.14 mg/dL (0.55-1.02); SODIUM 148 mmol/L (136-145); TOTAL PROTEIN 5.7 g/dL (6.4-8.2); eGFR NON BLACK RACES 52 (>60)
[2021-03-22] MEDS: ROCEPHIN VIAL 1 GRAM 1 G in NS 100 ML IV + SPIKE MINIBAG* 100 ML IV SCH (21:36)
[2021-03-22 21:52] LABS: PLATELET MORPHOLOGY COMMENT NORMAL (NORMAL)
--- NOTE | 2021-03-22 22:03 | RAD ---
PROCEDURE: Chest X-ray 1 View .HISTORY: RESPIRATORY FAILURE .TECHNIQUE: AP view .COMPARISON: 03/20/2021.TECHNICAL QUALITY: Satisfactory .FINDINGS:Normal size heart .Mediastinum and hilar regions show no masses or lymphadenopathy .Normal central vascularity .Increasing consolidation right lung base consistent with pneumonia. Unchanged hyper expansion and hyperlucency of the lungs. No pleural fluid or pneumothorax.No acute bony abnormality .IMPRESSION:1. Increasing pneumonia right lung base.2. COPD.Electronically signed by: Jonathan Rock (Mar 22, 2021 22:01:04)
[2021-03-22] MEDS ORDERED: DIPRIVAN VIAL 20 ML ONE (22:40)
[2021-03-22] MEDS ORDERED: QUELICIN (OR ANECTINE) ONE (22:42)
[2021-03-22] MEDS ORDERED: DIPRIVAN PREMIX 1 GRAM IV 1,000 MG/100 ML VIAL ONE (22:58)
[2021-03-23] MEDS: PROVENTIL NEB TX 0.083% 2.5MG/ 3ML NEB SCH ×6 (00:32→20:40)
[2021-03-23 00:34] LABS: ABG ALLEN TEST POS; ABG BASE EXCESS -5.9 mmol/L (-2.0-2.0); ABG HCO3 21.5 mmol/L (22-26)
[2021-03-23] MEDS: DIPRIVAN PREMIX 1 GRAM IV 1,000 MG/100 ML VIAL IV PRN ×2 (00:47→15:14)
--- NOTE | 2021-03-23 00:51 | DR.OPNOTE ---
OP NOTE Pre-Op Diagnosis: Covid pneumonia, lack of IV access Post-Op Diagnosis: same Procedure Date Date Of Procedure: 03/23/21 Procedure: This patient was in the ICU and Was already Intubated. She was placed in Trendelenburg position and the left chest and left neck were prepped and draped in sterile fashion. Skin underlying the left clavicle infiltrated with 1% Xylocaine as well as the left chest wall. 16-gauge needle use to puncture the left subclavian vein with aspiration of blood and placement of guidewire. Skin incised over the guide wire with a number 11 knife blade and dilator placed over the guide wire into the left subclavian vein. Dilator removed and the triple Lumen catheter threaded over the guide wire into the left subclavian vein. Guidewire was removed and all ports aspirated of blood and flushed with heparinized saline solution. The catheter secured to the Skin Within interrupted silk sutures . Bio-patch placed around the entrance to the skin. Post procedure chest x-ray shows good placement with no pneumothorax. Type of Anesthesia: Local (1 % Xylocaine ) EBL: minimal Complications:: none Disposition/Condition: Pt. tolerated procedure without difficulty.
--- NOTE | 2021-03-23 01:19 | RAD ---
PROCEDURE: Chest X-ray 1 View .HISTORY: ET TUBE PLACEMENT .TECHNIQUE: AP view .COMPARISON: 03/22/2021 chest x-ray done at 9:30 p.m..TECHNICAL QUALITY: Satisfactory .FINDINGS:Endotracheal tube in place with the tip 5 cm above the rupal. NG tube tip in the stomach.Unremarkable cardio mediastinal silhouette.Normal central vascularity.Unchanged pneumonia right base and COPD.IMPRESSION:1. Good endotracheal tube placement.2. Unchanged right basilar pneumonia and COPD.Electronically signed by: Jonathan Rock (Mar 23, 2021 01:17:22)
--- NOTE | 2021-03-23 01:20 | RAD ---
PROCEDURE: Abdomen X-ray 1 View .HISTORY: NG TUBE PLACEMENT .TECHNIQUE: AP supine abdomen view .COMPARISON: 12/25/2018.TECHNICAL QUALITY: Satisfactory .FINDINGS:NG tube tip projected over fundus of the stomach. Side hole is at the GE junction and repositioning more distally 5-10 cm recommended.No dilated bowel loops.IMPRESSION:NG tube tip in the fundus of the stomach with the side hole at the GE junction and repositioning more distally 5-10 cm recommended.Electronically signed by: Jonathan Rock (Mar 23, 2021 01:19:04)
--- NOTE | 2021-03-23 01:23 | RAD ---
PROCEDURE: Chest X-ray 1 View .HISTORY: CENTRAL LINE PLACEMENT .TECHNIQUE: AP view .COMPARISON: 03/22/2021.TECHNICAL QUALITY: Satisfactory .FINDINGS:Left subclavian central venous line in place with the tip projected over the distal superior vena cava. Endotracheal and NG tube in place.Continued pneumonia right base and emphysema. No pneumothorax. Suspected skin fold projected over both upper lobe regions between the 4th and 5th ribs.IMPRESSION:Good left subclavian central venous line placement with no pneumothorax.Electronically signed by: Jonathan Rock (Mar 23, 2021 01:21:54)
[2021-03-23] MEDS ORDERED: HALDOL INJ IM PRN (01:45)
[2021-03-23] MEDS ORDERED: HALDOL INJ IVP PRN (01:46)
[2021-03-23] MEDS: LR 1,000 ML IV 1,000 ML IV SCH ×3 (02:31→18:25)
[2021-03-23] MEDS: ASCORBIC ACID INJ MULTI-DOSE VIAL 1,500 MG in NS 100 ML IV 100 ML IV SCH ×4 (03:12→20:57)
[2021-03-23] MEDS: SOLU-Medrol 125 MG VIAL IVP SCH ×4 (03:12→21:01)
--- NOTE | 2021-03-23 04:31 | RAD ---
PROCEDURE: Abdomen X-ray 1 View .HISTORY: NG TUBE ADVANCEMENT .TECHNIQUE: AP supine abdomen view .COMPARISON: 03/22/2021.TECHNICAL QUALITY: Satisfactory .FINDINGS:There has been advancement of the patient's NG tube with the tip in the body of the stomach in good position.IMPRESSION:Good NG-tube placement.Electronically signed by: Jonathan Rock (Mar 23, 2021 04:29:14)
--- NOTE | 2021-03-23 04:32 | RAD ---
PROCEDURE: Chest X-ray 1 View .HISTORY: COVID+, VENTILATOR DEPENDENCE .TECHNIQUE: AP view .COMPARISON: 03/23/2021 chest x-ray done at 12:08 a.m..TECHNICAL QUALITY: Satisfactory .FINDINGS:Endotracheal tube, NG tube, and left subclavian lines in good position.Unchanged start size upper limits of normal.Mediastinum and hilar regions show no masses or lymphadenopathy .Normal central vascularity .Unchanged right basilar pneumonia with COPD and interstitial fibrosis.No acute bony abnormality .IMPRESSION:Unchanged right basilar pneumonia.Electronically signed by: Jonathan Rock (Mar 23, 2021 04:31:33)
[2021-03-23 04:34] LABS: ABG BASE EXCESS -5.3 mmol/L (-2.0-2.0); ABG HCO3 23.2 mmol/L (22-26)
[2021-03-23 04:36] LABS: ABG ALLEN TEST POS
[2021-03-23 04:50] LABS: BASOPHILS # (AUTO) 0.1 X10^3/uL (0.0-0.1); HEMATOCRIT 28.1 % (36.0-47.0); HEMOGLOBIN 9.3 g/dL (12.0-16.0); LYMPHOCYTES # (AUTO) 0.2 X10^3/uL (1.3-2.9); LYMPHOCYTES % (AUTO) 1.5 % (21.0-51.0); MEAN CORPUSCULAR HEMOGLOBIN 27.3 pg (27.0-34.0); MEAN CORPUSCULAR HGB CONC 33.1 g/dL (33.0-35.0); MEAN CORPUSCULAR VOLUME 82.6 fL (80.0-100.0); MEAN PLATELET VOLUME 8.2 fL (7.4-11.0); MONOCYTES # (AUTO) 0.8 x10^3/uL (0.3-0.8); MONOCYTES % (AUTO) 5.4 % (0.0-13.0); NEUTROPHILS # (AUTO) 13.2 x10^3/uL (2.2-4.8); NEUTROPHILS % (AUTO) 92.1 % (42.0-75.0); PLATELET COUNT 337 X10^3/uL (150.0-450.0); RED CELL DISTRIBUTION WIDTH 14.6 % (11.6-16.5); WHITE BLOOD COUNT 14.4 X10^3/uL (3.6-10.0)
[2021-03-23 05:01] LABS: ALANINE AMINOTRANSFERASE 17 Units/L (12-78); ALBUMIN 2.5 g/dL (3.4-5.0); ALKALINE PHOSPHATASE 77 Units/L (46-116); ASPARTATE AMINO TRANSFERASE 22 Units/L (15-37); BLOOD UREA NITROGEN 27 mg/dL (7-18); CALCIUM 7.8 mg/dL (8.5-10.1); CARBON DIOXIDE 21.6 mmol/L (21-32); COR NA(FOR HYPERGLY) 150 mmol/L (136-145); CREATININE 1.08 mg/dL (0.55-1.02); SODIUM 149 mmol/L (136-145); TOTAL PROTEIN 5.8 g/dL (6.4-8.2); eGFR NON BLACK RACES 55 (>60)
[2021-03-23 05:07] LABS: PLATELET MORPHOLOGY COMMENT NORMAL (NORMAL)
[2021-03-23 05:09] LABS: CHLORIDE 116 mmol/L (98-107)
[2021-03-23] MEDS ORDERED: VERSED IV PREMIX 100 MG/100 ML IV.SOLN IV ONE (05:21)
[2021-03-23] MEDS: CLEOCIN 600 MG IV PREMIX 600 MG/50 ML BAG IV SCH (05:29)
[2021-03-23] MEDS: VERSED IV PREMIX IV PRN ×2 (05:53→06:10)
[2021-03-23 06:14] LABS: ABG ALLEN TEST POS; ABG BASE EXCESS -3.6 mmol/L (-2.0-2.0); ABG HCO3 22.7 mmol/L (22-26)
[2021-03-23] MEDS: VERSED IV PREMIX 100 MG/100 ML IV.SOLN IV PRN ×3 (06:22→18:27)
[2021-03-23] MEDS: PULMICORT NEB TX 0.5 MG NEB SCH ×2 (08:45→20:40)
[2021-03-23] MEDS: ZOSYN VIAL 4.5 GRAMS 4.5 G in NS 100 ML IV + SPIKE MINIBAG* 100 ML IV SCH ×3 (08:56→22:50)
[2021-03-23] MEDS ORDERED: IVERMECTIN PO SCH (09:00)
[2021-03-23] MEDS: PROTONIX INJ 40 MG VIAL IVP SCH ×2 (09:57→21:01)
[2021-03-23] MEDS: PEPCID 20 MG IV PREMIX* 20 MG/50 ML BAG IV SCH ×2 (09:57→20:58)
[2021-03-23] MEDS: ZITHROMAX INJ 500 MG VIAL 500 MG in NS 250 ML IV 250 ML IV SCH (09:58)
[2021-03-23] MEDS: THIAMINE HCL INJ IVP SCH ×2 (09:59→21:01)
[2021-03-23] MEDS: LOVENOX INJ 60 MG SYR SC SCH ×2 (10:00→20:57)
--- NOTE | 2021-03-23 10:51 | PCM.PROG ---
Progress Note Progress Note for Day of Date of Exam: 03/23/21 Subjective Subjective: Pt is a 60-year-old female admitted for COVID-19 pneumonia, Acute Respiratory Failure, and pulmonary embolism. Overnight patient's respiratory status acutely declined and she required intubation and placed on mechanical ventilation. She is currently on propofol and versed gtt. Ventilation settings: SIMV, Rate 24, TV 400, PEEP 10, FiO2 100%. Labs/imaging: Wbc 14.4, Hgb 9.3, Plt 337, Na 149, K 4.0, Creatinine 1.08, Glucose 140, CRP 9.7, ABG: pH 7.31, pCO2 45, pO2 67, HCO3 22, O2sat 91%, on FiO2 100%. CXR: unchanged right basilar pneumonia. KUB: NGT in place. Pt is receiving pneumonia protocol that includes: IVF LR@125 ml/h, Solumedrol 250mg q6h, scheduled Bronchodilators, Antibiotics: Zosyn and Zithromax, immune supporting supplements, supplemental O2, SSI, I/S, Lovenox 60mg BID, Respiratory therapy consult. Continue with current treatment plan. Wean FiO2 as tolerated. Will continue to closely monitor and follow up labs/imaging. Critical care time spent 30-74 minutes in clinical assessment, reviewing labs/imaging, decision making, and documentation. Past Medical Family Social History Past Med/Fam/Surg Hx: No changes since H&P Allergies: Allergies acetaminophen [From Darvocet-N] Allergy (Verified 12/25/18 18:39) levofloxacin [From Levaquin] Allergy (Verified 03/12/21 03:56) propoxyphene [From Darvocet-N] Allergy (Verified 12/25/18 18:39) tetracycline Allergy (Verified 12/17/20 18:24) umeclidinium [From Anoro Ellipta] Allergy (Verified 12/17/20 18:24) vilanterol [From Anoro Ellipta] Allergy (Verified 12/17/20 18:24) Review of Systems ROS: Changes notes (describe) ROS changes noted: Mechanical ventilation Vital Signs and I&O's Vital Signs: Temperature 99.0 F Pulse Rate [Right Brachial] 81 Pulse Rate 80 Respiratory Rate 28 Blood Pressure [Left Arm] 117/58 Blood Pressure 105/64 O2 Sat by Pulse Oximetry 97 Intake and Output: Intake & Output 03/20/21 03/21/21 03/22/21 03/23/21 23:59 23:59 23:59 23:59 Intake Total 3946 / 3946 2622 / 2622 1903 / 1903 Output Total 2600 / 2600 1530 / 1530 1050 / 1050 Balance 1346 / 1346 1092 / 1092 853 / 853 Physical Exam Oriented: Other (Mechanical ventilation) Eyes: Normal Nose: Normal Respiratory: Diminished, Rales and Rhonchi : Normal Auscultation: Bowel Sounds: Normal Palpation: Normal Tenderness: Normal Skin: Normal Musculoskeletal: Normal Psychiatric: Other Speech Pattern: Artificially Ventilated Laboratory and Diagnostics Result Diagrams: 03/24/21 05:34 03/24/21 05:34 Labs: 03/21/21 03:30 Sputum - Expectorated Sputum Sputum Culture - Preliminary Chryseom Luteola/Flavim Oryzi 03/21/21 03:30 Sputum - Expectorated Sputum - Final 03/23/21 00:49 Sputum - Endotracheal Wash - Final 03/20/21 20:45 Urine,Clean Catch Urine Culture - Final Laboratory WBC 14.4 X10^3/uL (3.6-10.0) H 03/23/21 04:22 RBC 3.40 X10^6/uL (3.5-5.4) L 03/23/21 04:22 Hgb 9.3 g/dL (12.0-16.0) L 03/23/21 04:22 Hct 28.1 % (36.0-47.0) L 03/23/21 04:22 MCV 82.6 fL (80.0-100.0) 03/23/21 04:22 MCH 27.3 pg (27.0-34.0) 03/23/21 04:22 MCHC 33.1 g/dL (33.0-35.0) 03/23/21 04:22 RDW 14.6 % (11.6-16.5) 03/23/21 04:22 Plt Count 337 X10^3/uL (150.0-450.0) 03/23/21 04:22 Plt Count Comment Adequate (ADEQUATE) 03/23/21 04:22 MPV 8.2 fL (7.4-11.0) 03/23/21 04:22 Neut % (Auto) 92.1 % (42.0-75.0) H 03/23/21 04:22 Lymph % (Auto) 1.5 % (21.0-51.0) L 03/23/21 04:22 Thomas % (Auto) 5.4 % (0.0-13.0) 03/23/21 04:22 Eos % (Auto) 0.0 % (0.9-2.9) L 03/23/21 04:22 Baso % (Auto) 1.0 % (0.2-1.0) 03/23/21 04:22 Neut # (Auto) 13.2 x10^3/uL (2.2-4.8) H 03/23/21 04:22 Lymph # (Auto) 0.2 X10^3/uL (1.3-2.9) L 03/23/21 04:22 Thomas # (Auto) 0.8 x10^3/uL (0.3-0.8) 03/23/21 04:22 Eos # (Auto) 0.0 x10^3/uL (0.0-0.2) 03/23/21 04:22 Baso # (Auto) 0.1 X10^3/uL (0.0-0.1) 03/23/21 04:22 Absolute Nucleated RBC 0.1 /100WBC 03/23/21 04:22 Total Counted 100 03/23/21 04:22 Neutrophils % (Manual) 93 % (39-76) H 03/23/21 04:22 Band Neutrophils % 3 % (0-10) 03/21/21 05:06 Lymphocytes % (Manual) 3 % (13-43) L 03/23/21 04:22 Monocytes % (Manual) 4 % (4-9) 03/23/21 04:22 Plt Morphology Comment Normal (NORMAL) 03/23/21 04:22 RBC Morphology Normal (NORMAL) 03/23/21 04:22 PT 13.4 SECONDS (11.8-14.3) 03/20/21 19:52 INR Target Range - 03/20/21 19:52 INR 1.07 (0.8-1.3) 03/20/21 19:52 APTT 24.8 SECONDS (22.9-36.5) 03/20/21 19:52 PTT Comment - 03/20/21 19:52 D-Dimer 3.42 ug/ml (0.0-0.57) H* 03/20/21 19:52 Sample Site Rrad 03/23/21 06:13 ABG pH 7.310 (7.35-7.45) L 03/23/21 06:13 ABG pCO2 45.0 mmHg (35.0-45.0) 03/23/21 06:13 ABG pO2 67.0 mmHg (80.0-100.0) L 03/23/21 06:13 ABG HCO3 22.7 mmol/L (22-26) 03/23/21 06:13 ABG O2 Saturation 91.0 % (90-100) 03/23/21 06:13 ABG Base Excess -3.6 mmol/L (-2.0-2.0) L 03/23/21 06:13 Laz Test Pos 03/23/21 06:13 A-a Gradient 590.0 mmHg 03/23/21 06:13 FiO2 100.0 03/23/21 06:13 Blood Gas Comments Tino well-mtf 03/23/21 06:13 Sodium 149 mmol/L (136-145) H 03/23/21 04:22 Corrected Sodium 150 mmol/L (136-145) H 03/23/21 04:22 Potassium 4.0 mmol/L (3.5-5.1) 03/23/21 04:22 Chloride 116 mmol/L (98-107) H* 03/23/21 04:22 Carbon Dioxide 21.6 mmol/L (21-32) 03/23/21 04:22 BUN 27 mg/dL (7-18) H 03/23/21 04:22 Creatinine 1.08 mg/dL (0.55-1.02) H 03/23/21 04:22 Est GFR (MDRD) Af Amer > 60 (>60) 03/23/21 04:22 Est GFR (MDRD) Non-Af 55 (>60) L 03/23/21 04:22 Glucose 140 mg/dL (65-99) H 03/23/21 04:22 Calcium 7.8 mg/dL (8.5-10.1) L 03/23/21 04:22 Corrected Calcium 9.0 mg/dL (8.5-10.1) 03/23/21 04:22 Magnesium 2.3 mg/dL (1.7-2.9) 03/22/21 05:20 Total Bilirubin 0.30 mg/dL (0.2-1.0) 03/23/21 04:22 AST 22 Units/L (15-37) 03/23/21 04:22 ALT 17 Units/L (12-78) 03/23/21 04:22 Alkaline Phosphatase 77 Units/L (46-116) 03/23/21 04:22 Creatine Kinase 40 Units/L (26-192) 03/20/21 19:52 CK-MB (CK-2) 2.4 ng/mL (0-4.0) 03/20/21 19:52 CK/CKMB % Calc 6.0 % (<4) 03/20/21 19:52 Troponin I < 0.02 ng/mL (0-1.5) 03/20/21 19:52 C-Reactive Protein 9.70 mg/L (0-3.0) H 03/23/21 04:22 B-Natriuretic Peptide 48.0 pg/mL (0-79) 03/20/21 19:52 Total Protein 5.8 g/dL (6.4-8.2) L 03/23/21 04:22 Albumin 2.5 g/dL (3.4-5.0) L 03/23/21 04:22 Globulin 3.3 g/dL (2.5-4.5) 03/23/21 04:22 Albumin/Globulin Ratio 0.8 Ratio (1.1-2.1) L 03/23/21 04:22 Specimen Type Catherized urine 03/20/21 20:45 Urine Color Yellow (YELLOW) 03/20/21 20:45 Urine Appearance Clear (CLEAR) 03/20/21 20:45 Urine pH 6.0 (5.0 - 8.0) 03/20/21 20:45 Ur Specific [place] 1.010 (1.000-1.030) 03/20/21 20:45 Urine Protein 2+ (NEGATIVE) 03/20/21 20:45 Urine Glucose (UA) Negative (NEGATIVE) 03/20/21 20:45 Urine Ketones Negative (NEGATIVE) 03/20/21 20:45 Urine Occult Blood 1+ (NEGATIVE) 03/20/21 20:45 Urine Nitrite Negative (NEGATIVE) 03/20/21 20:45 Urine Bilirubin Negative (NEGATIVE) 03/20/21 20:45 Urine Urobilinogen Normal (NORMAL) 03/20/21 20:45 Ur Leukocyte Esterase Negative (NEGATIVE) 03/20/21 20:45 Urine RBC 5-10 /HPF (0-3) A 03/20/21 20:45 Urine WBC 3-5 /HPF (0-5) 03/20/21 20:45 Ur Squamous Epith Cells Rare /HPF (NEGATIVE) 03/20/21 20:45 Urine Bacteria Trace /HPF (NEGATIVE) 03/20/21 20:45 Ur Culture Indicated? No/not indicated 03/20/21 20:45 SARS-CoV-2 (PCR) Positive (NEGATIVE) A 03/21/21 00:07 Influenza Type A (PCR) Negative (NEGATIVE) 03/21/21 00:07 Influenza Type B (PCR) Negative (NEGATIVE) 03/21/21 00:07 RSV (PCR) Negative (NEGATIVE) 03/21/21 00:07 Plan (1) Pneumonia due to COVID-19 virus: Status: Acute Plan: Mechanical ventilation (2) Acute respiratory failure: Status: Acute
[2021-03-24] MEDS: PROVENTIL NEB TX 0.083% 2.5MG/ 3ML NEB SCH ×7 (00:40→20:23)
[2021-03-24] MEDS: VERSED IV PREMIX 100 MG/100 ML IV.SOLN IV PRN ×3 (01:22→15:39)
[2021-03-24] MEDS: ASCORBIC ACID INJ MULTI-DOSE VIAL 1,500 MG in NS 100 ML IV 100 ML IV SCH ×4 (02:20→20:23)
[2021-03-24] MEDS: LR 1,000 ML IV 1,000 ML IV SCH ×3 (02:20→18:05)
[2021-03-24] MEDS: SOLU-Medrol 125 MG VIAL IVP SCH ×2 (02:20→08:10)
[2021-03-24] MEDS: DIPRIVAN PREMIX 1 GRAM IV 1,000 MG/100 ML VIAL IV PRN ×3 (03:40→18:06)
[2021-03-24 05:27] LABS: ABG BASE EXCESS -1.7 mmol/L (-2.0-2.0); ABG HCO3 23.7 mmol/L (22-26)
[2021-03-24 05:28] LABS: ABG ALLEN TEST POS
[2021-03-24] MEDS: ZOSYN VIAL 4.5 GRAMS 4.5 G in NS 100 ML IV + SPIKE MINIBAG* 100 ML IV SCH (05:44)
[2021-03-24 06:06] LABS: BASOPHILS % (AUTO) 0.2 % (0.2-1.0); HEMATOCRIT 24.4 % (36.0-47.0); HEMOGLOBIN 8.2 g/dL (12.0-16.0); LYMPHOCYTES # (AUTO) 0.2 X10^3/uL (1.3-2.9); MEAN CORPUSCULAR HEMOGLOBIN 27.5 pg (27.0-34.0); MEAN CORPUSCULAR HGB CONC 33.5 g/dL (33.0-35.0); MEAN CORPUSCULAR VOLUME 82.2 fL (80.0-100.0); MEAN PLATELET VOLUME 8.3 fL (7.4-11.0); MONOCYTES # (AUTO) 0.2 x10^3/uL (0.3-0.8); MONOCYTES % (AUTO) 4.1 % (0.0-13.0); NEUTROPHILS # (AUTO) 5.3 x10^3/uL (2.2-4.8); NEUTROPHILS % (AUTO) 92.7 % (42.0-75.0); PLATELET COUNT 268 X10^3/uL (150.0-450.0); RED BLOOD COUNT 2.97 X10^6/uL (3.5-5.4); RED CELL DISTRIBUTION WIDTH 14.3 % (11.6-16.5); WHITE BLOOD COUNT 5.7 X10^3/uL (3.6-10.0)
[2021-03-24 06:14] LABS: ALANINE AMINOTRANSFERASE 15 Units/L (12-78); ALBUMIN 2.2 g/dL (3.4-5.0); ALKALINE PHOSPHATASE 69 Units/L (46-116); ASPARTATE AMINO TRANSFERASE 14 Units/L (15-37); BLOOD UREA NITROGEN 30 mg/dL (7-18); CALCIUM 7.8 mg/dL (8.5-10.1); COR CA(FOR HYPOALB) 9.2 mg/dL (8.5-10.1); COR NA(FOR HYPERGLY) 153 mmol/L (136-145); CREATININE 1.02 mg/dL (0.55-1.02); TOTAL PROTEIN 5.1 g/dL (6.4-8.2); eGFR NON BLACK RACES 59 (>60)
[2021-03-24 06:19] LABS: CHLORIDE 120 mmol/L (98-107); SODIUM 152 mmol/L (136-145)
--- NOTE | 2021-03-24 06:21 | RAD ---
PROCEDURE: Chest X-ray 1 View .HISTORY: VENTILATOR DEPENDENCE, COVID+ .TECHNIQUE: AP view .COMPARISON: 03/23/2021.TECHNICAL QUALITY: Satisfactory .FINDINGS:Endotracheal and NG tube in good position. Left subclavian central venous line in good position.Unremarkable cardio mediastinal silhouette.Normal central vascularity.Unchanged consolidation lung bases consistent with pneumonia. No pleural fluid or pneumothorax.IMPRESSION:Unchanged bibasilar pneumonia.Electronically signed by: Jonathan Rock (Mar 24, 2021 06:19:32)
[2021-03-24 07:04] LABS: PLATELET MORPHOLOGY COMMENT NORMAL (NORMAL)
[2021-03-24] MEDS: THIAMINE HCL INJ IVP SCH ×2 (08:10→20:33)
[2021-03-24] MEDS: PEPCID 20 MG IV PREMIX* 20 MG/50 ML BAG IV SCH ×2 (08:10→20:25)
[2021-03-24] MEDS: PROTONIX INJ 40 MG VIAL IVP SCH ×2 (08:10→20:31)
[2021-03-24] MEDS: LOVENOX INJ 60 MG SYR SC SCH ×2 (08:24→20:24)
[2021-03-24] MEDS: ZITHROMAX INJ 500 MG VIAL 500 MG in NS 250 ML IV 250 ML IV SCH (08:25)
[2021-03-24] MEDS: PULMICORT NEB TX 0.5 MG NEB SCH ×2 (08:45→20:23)
--- NOTE | 2021-03-24 10:15 | PCM.PROG ---
Progress Note Progress Note for Day of Date of Exam: 03/24/21 Subjective Subjective: Pt is a 60-year-old female admitted for COVID-19 pneumonia, Acute Respiratory Failure, and pulmonary embolism. She is currently requiring mechanical ventilation with propofol and versed gtt. Has NGT. Ventilation settings: SIMV, Rate 24, TV 400, PEEP 10, FiO2 100%. Labs/imaging: Wbc 5.7, Hgb 8.2, Plt 268, Na 152, K 3.4, Creatinine 1.02, Glucose 141, ABG was obtained this morning that revealed: pH 7.36, pCO2 42, pO2 66, HCO3 23, O2sat 92%, on FiO2 100%. CXR: unchanged bibasilar pneumonia. Pt is receiving pneumonia protocol that includes: IVF LR@125 ml/h, Solumedrol 250mg q6h, scheduled Bronchodilators, Antibiotics: Zosyn and Zithromax, immune supporting supplements, supplemental O2, SSI, I/S, Lovenox 60mg BID, Respiratory therapy consult. Will decrease Solumedrol to 80mg q6h and decrease IVF to KVO. Increase free water and schedule q4h for hypernatremia. Replete potassium per protocol. See sputum culture results, gram negative species with yeast. Will change antibiotics to Meropenem and Diflucan. Otherwise continue with current treatment plan. Wean FiO2 as tolerated. Will continue to closely monitor and follow up labs/imaging. Critical care time spent 30-74 minutes in clinical assessment, reviewing labs/imaging, decision making, and documentation. Past Medical Family Social History Past Med/Fam/Surg Hx: No changes since H&P Allergies: Allergies acetaminophen [From Darvocet-N] Allergy (Verified 12/25/18 18:39) levofloxacin [From Levaquin] Allergy (Verified 03/12/21 03:56) propoxyphene [From Darvocet-N] Allergy (Verified 12/25/18 18:39) tetracycline Allergy (Verified 12/17/20 18:24) umeclidinium [From Anoro Ellipta] Allergy (Verified 12/17/20 18:24) vilanterol [From Anoro Ellipta] Allergy (Verified 12/17/20 18:24) Review of Systems ROS: Changes notes (describe) Vital Signs and I&O's Vital Signs: Temperature 98.7 F Pulse Rate [Right Brachial] 81 Pulse Rate 79 Respiratory Rate 38 Blood Pressure [Left Arm] 117/58 Blood Pressure 139/94 O2 Sat by Pulse Oximetry 97 Intake and Output: Intake & Output 03/21/21 03/22/21 03/23/21 03/24/21 23:59 23:59 23:59 23:59 Intake Total 3946 / 3946 2622 / 2622 4227 / 4227 1420 / 1420 Output Total 2600 / 2600 1530 / 1530 1850 / 1850 625 / 625 Balance 1346 / 1346 1092 / 1092 2377 / 2377 795 / 795 Physical Exam Oriented: Other (Mechanical ventilation) Eyes: Normal Nose: Normal Respiratory: Diminished, Rales and Rhonchi : Normal Auscultation: Bowel Sounds: Normal Tenderness: Normal Skin: Normal Musculoskeletal: Normal Psychiatric: Other Speech Pattern: Artificially Ventilated Laboratory and Diagnostics Result Diagrams: 03/24/21 05:34 03/24/21 05:34 Labs: 03/23/21 00:49 Sputum - Endotracheal Wash Sputum Culture - Preliminary 03/23/21 00:49 Sputum - Endotracheal Wash - Final 03/21/21 03:30 Sputum - Expectorated Sputum Sputum Culture - Preliminary Chryseom Luteola/Flavim Oryzi 03/21/21 03:30 Sputum - Expectorated Sputum - Final 03/20/21 20:45 Urine,Clean Catch Urine Culture - Final Laboratory WBC 5.7 X10^3/uL (3.6-10.0) D 03/24/21 05:34 RBC 2.97 X10^6/uL (3.5-5.4) L 03/24/21 05:34 Hgb 8.2 g/dL (12.0-16.0) L 03/24/21 05:34 Hct 24.4 % (36.0-47.0) L 03/24/21 05:34 MCV 82.2 fL (80.0-100.0) 03/24/21 05:34 MCH 27.5 pg (27.0-34.0) 03/24/21 05:34 MCHC 33.5 g/dL (33.0-35.0) 03/24/21 05:34 RDW 14.3 % (11.6-16.5) 03/24/21 05:34 Plt Count 268 X10^3/uL (150.0-450.0) 03/24/21 05:34 Plt Count Comment Adequate (ADEQUATE) 03/24/21 05:34 MPV 8.3 fL (7.4-11.0) 03/24/21 05:34 Neut % (Auto) 92.7 % (42.0-75.0) H 03/24/21 05:34 Lymph % (Auto) 3.0 % (21.0-51.0) L 03/24/21 05:34 Stephenson % (Auto) 4.1 % (0.0-13.0) 03/24/21 05:34 Eos % (Auto) 0.0 % (0.9-2.9) L 03/24/21 05:34 Baso % (Auto) 0.2 % (0.2-1.0) 03/24/21 05:34 Neut # (Auto) 5.3 x10^3/uL (2.2-4.8) H 03/24/21 05:34 Lymph # (Auto) 0.2 X10^3/uL (1.3-2.9) L 03/24/21 05:34 Stephenson # (Auto) 0.2 x10^3/uL (0.3-0.8) L 03/24/21 05:34 Eos # (Auto) 0.0 x10^3/uL (0.0-0.2) 03/24/21 05:34 Baso # (Auto) 0.0 X10^3/uL (0.0-0.1) 03/24/21 05:34 Absolute Nucleated RBC 0.1 /100WBC 03/24/21 05:34 Total Counted 100 03/24/21 05:34 Neutrophils % (Manual) 90 % (39-76) H 03/24/21 05:34 Band Neutrophils % 3 % (0-10) 03/21/21 05:06 Lymphocytes % (Manual) 7 % (13-43) L 03/24/21 05:34 Monocytes % (Manual) 3 % (4-9) L 03/24/21 05:34 Plt Morphology Comment Normal (NORMAL) 03/24/21 05:34 RBC Morphology Normal (NORMAL) 03/24/21 05:34 PT 13.4 SECONDS (11.8-14.3) 03/20/21 19:52 INR Target Range - 03/20/21 19:52 INR 1.07 (0.8-1.3) 03/20/21 19:52 APTT 24.8 SECONDS (22.9-36.5) 03/20/21 19:52 PTT Comment - 03/20/21 19:52 D-Dimer 3.42 ug/ml (0.0-0.57) H* 03/20/21 19:52 Sample Site Rrad 03/24/21 05:24 ABG pH 7.360 (7.35-7.45) 03/24/21 05:24 ABG pCO2 42.0 mmHg (35.0-45.0) 03/24/21 05:24 ABG pO2 66.0 mmHg (80.0-100.0) L 03/24/21 05:24 ABG HCO3 23.7 mmol/L (22-26) 03/24/21 05:24 ABG O2 Saturation 92.0 % (90-100) 03/24/21 05:24 ABG Base Excess -1.7 mmol/L (-2.0-2.0) 03/24/21 05:24 Laz Test Pos 03/24/21 05:24 A-a Gradient 595.0 mmHg 03/24/21 05:24 FiO2 100.0 03/24/21 05:24 Blood Gas Comments Tino abg well-mtf 03/24/21 05:24 Sodium 152 mmol/L (136-145) H* 03/24/21 05:34 Corrected Sodium 153 mmol/L (136-145) H 03/24/21 05:34 Potassium 3.4 mmol/L (3.5-5.1) L 03/24/21 05:34 Chloride 120 mmol/L (98-107) H* 03/24/21 05:34 Carbon Dioxide 23.0 mmol/L (21-32) 03/24/21 05:34 BUN 30 mg/dL (7-18) H 03/24/21 05:34 Creatinine 1.02 mg/dL (0.55-1.02) 03/24/21 05:34 Est GFR (MDRD) Af Amer > 60 (>60) 03/24/21 05:34 Est GFR (MDRD) Non-Af 59 (>60) 03/24/21 05:34 Glucose 141 mg/dL (65-99) H 03/24/21 05:34 Calcium 7.8 mg/dL (8.5-10.1) L 03/24/21 05:34 Corrected Calcium 9.2 mg/dL (8.5-10.1) 03/24/21 05:34 Magnesium 2.9 mg/dL (1.7-2.9) 03/24/21 05:44 Total Bilirubin 0.30 mg/dL (0.2-1.0) 03/24/21 05:34 AST 14 Units/L (15-37) L 03/24/21 05:34 ALT 15 Units/L (12-78) 03/24/21 05:34 Alkaline Phosphatase 69 Units/L (46-116) 03/24/21 05:34 Creatine Kinase 40 Units/L (26-192) 03/20/21 19:52 CK-MB (CK-2) 2.4 ng/mL (0-4.0) 03/20/21 19:52 CK/CKMB % Calc 6.0 % (<4) 03/20/21 19:52 Troponin I < 0.02 ng/mL (0-1.5) 03/20/21 19:52 C-Reactive Protein 9.70 mg/L (0-3.0) H 03/23/21 04:22 B-Natriuretic Peptide 48.0 pg/mL (0-79) 03/20/21 19:52 Total Protein 5.1 g/dL (6.4-8.2) L 03/24/21 05:34 Albumin 2.2 g/dL (3.4-5.0) L 03/24/21 05:34 Globulin 2.9 g/dL (2.5-4.5) 03/24/21 05:34 Albumin/Globulin Ratio 0.8 Ratio (1.1-2.1) L 03/24/21 05:34 Specimen Type Catherized urine 03/20/21 20:45 Urine Color Yellow (YELLOW) 03/20/21 20:45 Urine Appearance Clear (CLEAR) 03/20/21 20:45 Urine pH 6.0 (5.0 - 8.0) 03/20/21 20:45 Ur Specific [place] 1.010 (1.000-1.030) 03/20/21 20:45 Urine Protein 2+ (NEGATIVE) 03/20/21 20:45 Urine Glucose (UA) Negative (NEGATIVE) 03/20/21 20:45 Urine Ketones Negative (NEGATIVE) 03/20/21 20:45 Urine Occult Blood 1+ (NEGATIVE) 03/20/21 20:45 Urine Nitrite Negative (NEGATIVE) 03/20/21 20:45 Urine Bilirubin Negative (NEGATIVE) 03/20/21 20:45 Urine Urobilinogen Normal (NORMAL) 03/20/21 20:45 Ur Leukocyte Esterase Negative (NEGATIVE) 03/20/21 20:45 Urine RBC 5-10 /HPF (0-3) A 03/20/21 20:45 Urine WBC 3-5 /HPF (0-5) 03/20/21 20:45 Ur Squamous Epith Cells Rare /HPF (NEGATIVE) 03/20/21 20:45 Urine Bacteria Trace /HPF (NEGATIVE) 03/20/21 20:45 Ur Culture Indicated? No/not indicated 03/20/21 20:45 SARS-CoV-2 (PCR) Positive (NEGATIVE) A 03/21/21 00:07 Influenza Type A (PCR) Negative (NEGATIVE) 03/21/21 00:07 Influenza Type B (PCR) Negative (NEGATIVE) 03/21/21 00:07 RSV (PCR) Negative (NEGATIVE) 03/21/21 00:07 Plan (1) Pneumonia due to COVID-19 virus: Status: Acute Plan: Mechanical ventilation (2) Acute respiratory failure: Status: Acute
[2021-03-24] MEDS: MERREM VIAL 500 MG in NS 100 ML IV + SPIKE MINIBAG* 100 ML IV SCH ×2 (13:41→22:22)
[2021-03-24] MEDS: SOLU-Medrol 40 MG VIAL IVP SCH ×2 (15:05→20:33)
[2021-03-25] MEDS: PROVENTIL NEB TX 0.083% 2.5MG/ 3ML NEB SCH ×6 (00:23→20:59)
[2021-03-25] MEDS: DIPRIVAN PREMIX 1 GRAM IV 1,000 MG/100 ML VIAL IV PRN ×4 (00:57→19:40)
[2021-03-25] MEDS: VERSED IV PREMIX 100 MG/100 ML IV.SOLN IV PRN ×4 (00:58→19:44)
[2021-03-25] MEDS: SOLU-Medrol 40 MG VIAL IVP SCH ×4 (02:27→20:04)
[2021-03-25] MEDS: ASCORBIC ACID INJ MULTI-DOSE VIAL 1,500 MG in NS 100 ML IV 100 ML IV SCH ×4 (02:27→20:01)
[2021-03-25] MEDS: LR 1,000 ML IV 1,000 ML IV SCH ×3 (02:29→11:45)
[2021-03-25 05:05] LABS: BASOPHILS % (AUTO) 0.1 % (0.2-1.0); HEMATOCRIT 28.6 % (36.0-47.0); HEMOGLOBIN 9.4 g/dL (12.0-16.0); LYMPHOCYTES # (AUTO) 0.1 X10^3/uL (1.3-2.9); MEAN CORPUSCULAR HEMOGLOBIN 27.1 pg (27.0-34.0); MEAN CORPUSCULAR HGB CONC 32.7 g/dL (33.0-35.0); MEAN PLATELET VOLUME 8.4 fL (7.4-11.0); MONOCYTES # (AUTO) 0.6 x10^3/uL (0.3-0.8); MONOCYTES % (AUTO) 4.4 % (0.0-13.0); NEUTROPHILS # (AUTO) 13.7 x10^3/uL (2.2-4.8); NEUTROPHILS % (AUTO) 94.5 % (42.0-75.0); PLATELET COUNT 306 X10^3/uL (150.0-450.0); RED BLOOD COUNT 3.45 X10^6/uL (3.5-5.4); RED CELL DISTRIBUTION WIDTH 14.8 % (11.6-16.5); WHITE BLOOD COUNT 14.5 X10^3/uL (3.6-10.0)
[2021-03-25 05:19] LABS: ALANINE AMINOTRANSFERASE 16 Units/L (12-78); ALBUMIN 2.2 g/dL (3.4-5.0); ALKALINE PHOSPHATASE 77 Units/L (46-116); ASPARTATE AMINO TRANSFERASE 18 Units/L (15-37); BLOOD UREA NITROGEN 32 mg/dL (7-18); CALCIUM 7.8 mg/dL (8.5-10.1); CARBON DIOXIDE 22.2 mmol/L (21-32); COR CA(FOR HYPOALB) 9.2 mg/dL (8.5-10.1); COR NA(FOR HYPERGLY) 153 mmol/L (136-145); CREATININE 0.86 mg/dL (0.55-1.02); TOTAL PROTEIN 5.6 g/dL (6.4-8.2); eGFR NON BLACK RACES > 60 (>60)
[2021-03-25 05:26] LABS: ABG ALLEN TEST POS; ABG BASE EXCESS -3.1 mmol/L (-2.0-2.0); ABG HCO3 24.3 mmol/L (22-26)
[2021-03-25 05:41] LABS: CHLORIDE 120 mmol/L (98-107); SODIUM 152 mmol/L (136-145)
[2021-03-25 05:46] LABS: PLATELET MORPHOLOGY COMMENT NORMAL (NORMAL)
[2021-03-25] MEDS: MERREM VIAL 500 MG in NS 100 ML IV + SPIKE MINIBAG* 100 ML IV SCH ×3 (05:51→20:59)
[2021-03-25] MEDS: LOVENOX INJ 60 MG SYR SC SCH ×2 (09:05→20:02)
[2021-03-25] MEDS: THIAMINE HCL INJ IVP SCH ×2 (09:05→20:03)
[2021-03-25] MEDS: PULMICORT NEB TX 0.5 MG NEB SCH ×2 (09:15→20:59)
[2021-03-25] MEDS: PROTONIX INJ 40 MG VIAL IVP SCH ×2 (09:15→20:03)
[2021-03-25] MEDS: PEPCID 20 MG IV PREMIX* 20 MG/50 ML BAG IV SCH ×2 (09:30→20:02)
--- NOTE | 2021-03-25 10:20 | PCM.PROG ---
Progress Note Progress Note for Day of Date of Exam: 03/25/21 Subjective Subjective: Pt is a 60-year-old female admitted for COVID-19 pneumonia, Acute Respiratory Failure, and pulmonary embolism. She is currently requiring mechanical ventilation with propofol and versed gtt. Has NGT. Ventilation settings: SIMV, Rate 24, TV 400, PEEP 10, FiO2 100%. Labs/imaging: Wbc 14.5, Hgb 9.4, Plt 306, Na 152, K 4.1, Creatinine 0.86, Glucose 125, ABG was obtained this morning that revealed: pH 7.27, pCO2 53, pO2 70, HCO3 24, O2sat 91%, on FiO2 100%. CXR: unchanged bibasilar pneumonia. Pt is receiving pneumonia protocol that includes: IVF LR@KVO ml/h, Solumedrol 80mg q6h, scheduled Bronchodilators, Antibiotics: Meropenem and Diflucan, immune supporting supplements, supplemental O2, SSI, I/S, Lovenox 60mg BID, Respiratory therapy consult. Will change IVF to D5w@50ml/h for hypernatremia. Wean FiO2 as tolerated. Otherwise continue with current treatment plan. Will continue to closely monitor and follow up labs/imaging. Critical care time spent 30-74 minutes in clinical assessment, reviewing labs/imaging, decision making, and documentation. Past Medical Family Social History Past Med/Fam/Surg Hx: No changes since H&P Allergies: Allergies acetaminophen [From Darvocet-N] Allergy (Verified 12/25/18 18:39) levofloxacin [From Levaquin] Allergy (Verified 03/12/21 03:56) propoxyphene [From Darvocet-N] Allergy (Verified 12/25/18 18:39) tetracycline Allergy (Verified 12/17/20 18:24) umeclidinium [From Anoro Ellipta] Allergy (Verified 12/17/20 18:24) vilanterol [From Anoro Ellipta] Allergy (Verified 12/17/20 18:24) Review of Systems ROS: Changes notes (describe) Vital Signs and I&O's Vital Signs: Temperature 100.1 F Pulse Rate [Right Brachial] 81 Pulse Rate 95 Respiratory Rate 26 Blood Pressure [Left Arm] 117/58 Blood Pressure 125/65 O2 Sat by Pulse Oximetry 97 Intake and Output: Intake & Output 03/22/21 03/23/21 03/24/21 03/25/21 23:59 23:59 23:59 23:59 Intake Total 2622 / 2622 4227 / 4227 3900 / 3900 1213 / 1213 Output Total 1530 / 1530 1850 / 1850 1575 / 1575 1525 / 1525 Balance 1092 / 1092 2377 / 2377 2325 / 2325 -312 / -312 Physical Exam Oriented: Other (Mechanical ventilation) Eyes: Normal Nose: Normal Respiratory: Diminished, Rales and Rhonchi : Normal Auscultation: Bowel Sounds: Normal Tenderness: Normal Skin: Normal Musculoskeletal: Normal Psychiatric: Other Speech Pattern: Artificially Ventilated Laboratory and Diagnostics Result Diagrams: 03/25/21 04:40 03/25/21 04:40 Labs: 03/23/21 00:49 Sputum - Endotracheal Wash Sputum Culture - Preliminary 03/23/21 00:49 Sputum - Endotracheal Wash - Final 03/21/21 03:30 Sputum - Expectorated Sputum Sputum Culture - Preliminary Chryseom Luteola/Flavim Oryzi 03/21/21 03:30 Sputum - Expectorated Sputum - Final 03/20/21 20:45 Urine,Clean Catch Urine Culture - Final Laboratory WBC 14.5 X10^3/uL (3.6-10.0) H D 03/25/21 04:40 RBC 3.45 X10^6/uL (3.5-5.4) L 03/25/21 04:40 Hgb 9.4 g/dL (12.0-16.0) L 03/25/21 04:40 Hct 28.6 % (36.0-47.0) L 03/25/21 04:40 MCV 83.0 fL (80.0-100.0) 03/25/21 04:40 MCH 27.1 pg (27.0-34.0) 03/25/21 04:40 MCHC 32.7 g/dL (33.0-35.0) L 03/25/21 04:40 RDW 14.8 % (11.6-16.5) 03/25/21 04:40 Plt Count 306 X10^3/uL (150.0-450.0) 03/25/21 04:40 Plt Count Comment Adequate (ADEQUATE) 03/25/21 04:40 MPV 8.4 fL (7.4-11.0) 03/25/21 04:40 Neut % (Auto) 94.5 % (42.0-75.0) H 03/25/21 04:40 Lymph % (Auto) 1.0 % (21.0-51.0) L 03/25/21 04:40 [place] % (Auto) 4.4 % (0.0-13.0) 03/25/21 04:40 Eos % (Auto) 0.0 % (0.9-2.9) L 03/25/21 04:40 Baso % (Auto) 0.1 % (0.2-1.0) L 03/25/21 04:40 Neut # (Auto) 13.7 x10^3/uL (2.2-4.8) H 03/25/21 04:40 Lymph # (Auto) 0.1 X10^3/uL (1.3-2.9) L 03/25/21 04:40 [place] # (Auto) 0.6 x10^3/uL (0.3-0.8) 03/25/21 04:40 Eos # (Auto) 0.0 x10^3/uL (0.0-0.2) 03/25/21 04:40 Baso # (Auto) 0.0 X10^3/uL (0.0-0.1) 03/25/21 04:40 Absolute Nucleated RBC 0.0 /100WBC 03/25/21 04:40 Total Counted 100 03/25/21 04:40 Neutrophils % (Manual) 95 % (39-76) H 03/25/21 04:40 Band Neutrophils % 3 % (0-10) 03/21/21 05:06 Lymphocytes % (Manual) 1 % (13-43) L 03/25/21 04:40 Monocytes % (Manual) 4 % (4-9) 03/25/21 04:40 Plt Morphology Comment Normal (NORMAL) 03/25/21 04:40 RBC Morphology Normal (NORMAL) 03/25/21 04:40 PT 13.4 SECONDS (11.8-14.3) 03/20/21 19:52 INR Target Range - 03/20/21 19:52 INR 1.07 (0.8-1.3) 03/20/21 19:52 APTT 24.8 SECONDS (22.9-36.5) 03/20/21 19:52 PTT Comment - 03/20/21 19:52 D-Dimer 3.42 ug/ml (0.0-0.57) H* 03/20/21 19:52 Sample Site Lr 03/25/21 05:00 ABG pH 7.270 (7.35-7.45) L 03/25/21 05:00 ABG pCO2 53.0 mmHg (35.0-45.0) H* 03/25/21 05:00 ABG pO2 70.0 mmHg (80.0-100.0) L 03/25/21 05:00 ABG HCO3 24.3 mmol/L (22-26) 03/25/21 05:00 ABG O2 Saturation 91.0 % (90-100) 03/25/21 05:00 ABG Base Excess -3.1 mmol/L (-2.0-2.0) L 03/25/21 05:00 Laz Test Pos 03/25/21 05:00 A-a Gradient 577.0 mmHg 03/25/21 05:00 FiO2 100.0 03/25/21 05:00 Blood Gas Comments Tino well sw 03/25/21 05:00 Sodium 152 mmol/L (136-145) H* 03/25/21 04:40 Corrected Sodium 153 mmol/L (136-145) H 03/25/21 04:40 Potassium 4.1 mmol/L (3.5-5.1) 03/25/21 04:40 Chloride 120 mmol/L (98-107) H* 03/25/21 04:40 Carbon Dioxide 22.2 mmol/L (21-32) 03/25/21 04:40 BUN 32 mg/dL (7-18) H 03/25/21 04:40 Creatinine 0.86 mg/dL (0.55-1.02) 03/25/21 04:40 Est GFR (MDRD) Af Amer > 60 (>60) 03/25/21 04:40 Est GFR (MDRD) Non-Af > 60 (>60) 03/25/21 04:40 Glucose 125 mg/dL (65-99) H 03/25/21 04:40 Calcium 7.8 mg/dL (8.5-10.1) L 03/25/21 04:40 Corrected Calcium 9.2 mg/dL (8.5-10.1) 03/25/21 04:40 Magnesium 2.9 mg/dL (1.7-2.9) 03/24/21 05:44 Total Bilirubin 0.30 mg/dL (0.2-1.0) 03/25/21 04:40 AST 18 Units/L (15-37) 03/25/21 04:40 ALT 16 Units/L (12-78) 03/25/21 04:40 Alkaline Phosphatase 77 Units/L (46-116) 03/25/21 04:40 Creatine Kinase 40 Units/L (26-192) 03/20/21 19:52 CK-MB (CK-2) 2.4 ng/mL (0-4.0) 03/20/21 19:52 CK/CKMB % Calc 6.0 % (<4) 03/20/21 19:52 Troponin I < 0.02 ng/mL (0-1.5) 03/20/21 19:52 C-Reactive Protein 9.70 mg/L (0-3.0) H 03/23/21 04:22 B-Natriuretic Peptide 48.0 pg/mL (0-79) 03/20/21 19:52 Total Protein 5.6 g/dL (6.4-8.2) L 03/25/21 04:40 Albumin 2.2 g/dL (3.4-5.0) L 03/25/21 04:40 Globulin 3.4 g/dL (2.5-4.5) 03/25/21 04:40 Albumin/Globulin Ratio 0.6 Ratio (1.1-2.1) L 03/25/21 04:40 Specimen Type Catherized urine 03/20/21 20:45 Urine Color Yellow (YELLOW) 03/20/21 20:45 Urine Appearance Clear (CLEAR) 03/20/21 20:45 Urine pH 6.0 (5.0 - 8.0) 03/20/21 20:45 Ur Specific [place] 1.010 (1.000-1.030) 03/20/21 20:45 Urine Protein 2+ (NEGATIVE) 03/20/21 20:45 Urine Glucose (UA) Negative (NEGATIVE) 03/20/21 20:45 Urine Ketones Negative (NEGATIVE) 03/20/21 20:45 Urine Occult Blood 1+ (NEGATIVE) 03/20/21 20:45 Urine Nitrite Negative (NEGATIVE) 03/20/21 20:45 Urine Bilirubin Negative (NEGATIVE) 03/20/21 20:45 Urine Urobilinogen Normal (NORMAL) 03/20/21 20:45 Ur Leukocyte Esterase Negative (NEGATIVE) 03/20/21 20:45 Urine RBC 5-10 /HPF (0-3) A 03/20/21 20:45 Urine WBC 3-5 /HPF (0-5) 03/20/21 20:45 Ur Squamous Epith Cells Rare /HPF (NEGATIVE) 03/20/21 20:45 Urine Bacteria Trace /HPF (NEGATIVE) 03/20/21 20:45 Ur Culture Indicated? No/not indicated 03/20/21 20:45 SARS-CoV-2 (PCR) Positive (NEGATIVE) A 03/21/21 00:07 Influenza Type A (PCR) Negative (NEGATIVE) 03/21/21 00:07 Influenza Type B (PCR) Negative (NEGATIVE) 03/21/21 00:07 RSV (PCR) Negative (NEGATIVE) 03/21/21 00:07 Plan (1) Pneumonia due to COVID-19 virus: Status: Acute Plan: Mechanical ventilation (2) Acute respiratory failure: Status: Acute
[2021-03-25] MEDS: DIFLUCAN 100 MG IV (MIX by PHARMACY)* 100 MG/50 ML BAG IV SCH (11:03)
[2021-03-25] MEDS: D5W 1,000 ML IV 1,000 ML IV SCH (11:46)
[2021-03-26] MEDS: PROVENTIL NEB TX 0.083% 2.5MG/ 3ML NEB SCH ×6 (01:14→21:36)
[2021-03-26] MEDS: D5W 1,000 ML IV 1,000 ML IV SCH ×2 (02:01→14:22)
[2021-03-26] MEDS: ASCORBIC ACID INJ MULTI-DOSE VIAL 1,500 MG in NS 100 ML IV 100 ML IV SCH ×4 (02:01→20:42)
[2021-03-26] MEDS: SOLU-Medrol 40 MG VIAL IVP SCH ×4 (02:01→20:46)
[2021-03-26] MEDS: DIPRIVAN PREMIX 1 GRAM IV 1,000 MG/100 ML VIAL IV PRN ×4 (02:02→22:12)
[2021-03-26] MEDS: VERSED IV PREMIX 100 MG/100 ML IV.SOLN IV PRN ×4 (02:03→23:13)
[2021-03-26] MEDS: MERREM VIAL 500 MG in NS 100 ML IV + SPIKE MINIBAG* 100 ML IV SCH ×3 (05:10→22:12)
[2021-03-26 05:12] LABS: BASOPHILS % (AUTO) 0 % (0.2-1.0); HEMATOCRIT 40.6 % (36.0-47.0); HEMOGLOBIN 13.2 g/dL (12.0-16.0); LYMPHOCYTES # (AUTO) 0.1 X10^3/uL (1.3-2.9); LYMPHOCYTES % (AUTO) 1.3 % (21.0-51.0); MEAN CORPUSCULAR HGB CONC 32.6 g/dL (33.0-35.0); MEAN CORPUSCULAR VOLUME 82.8 fL (80.0-100.0); MEAN PLATELET VOLUME 8.9 fL (7.4-11.0); MONOCYTES # (AUTO) 0.2 x10^3/uL (0.3-0.8); MONOCYTES % (AUTO) 3.8 % (0.0-13.0); NEUTROPHILS # (AUTO) 5.3 x10^3/uL (2.2-4.8); NEUTROPHILS % (AUTO) 94.9 % (42.0-75.0); PLATELET COUNT 186 X10^3/uL (150.0-450.0); WHITE BLOOD COUNT 5.6 X10^3/uL (3.6-10.0)
[2021-03-26 05:21] LABS: ALANINE AMINOTRANSFERASE 15 Units/L (12-78); ALBUMIN 1.9 g/dL (3.4-5.0); ALKALINE PHOSPHATASE 70 Units/L (46-116); ASPARTATE AMINO TRANSFERASE 16 Units/L (15-37); BLOOD UREA NITROGEN 33 mg/dL (7-18); CALCIUM 7.5 mg/dL (8.5-10.1); CARBON DIOXIDE 23.9 mmol/L (21-32); COR CA(FOR HYPOALB) 9.2 mg/dL (8.5-10.1); COR NA(FOR HYPERGLY) 146 mmol/L (136-145); CREATININE 0.73 mg/dL (0.55-1.02); SODIUM 144 mmol/L (136-145); TOTAL PROTEIN 5.2 g/dL (6.4-8.2); eGFR NON BLACK RACES > 60 (>60)
[2021-03-26 05:29] LABS: CHLORIDE 115 mmol/L (98-107)
[2021-03-26 05:38] LABS: PLATELET MORPHOLOGY COMMENT NORMAL (NORMAL)
[2021-03-26 05:46] LABS: ABG BASE EXCESS -1.4 mmol/L (-2.0-2.0); ABG HCO3 25.6 mmol/L (22-26)
[2021-03-26 05:47] LABS: ABG ALLEN TEST POS
--- NOTE | 2021-03-26 05:51 | RAD ---
HISTORYf/u icu on vent for pneumonia Relevant Clinical InformationSTUDYCHEST, 1 [id number]/27/2021FINDINGSThe trachea is midline. Endotracheal tube tip above the rupal. NG tube below the hemidiaphragm. Left central line unchanged with tip in the SVC. The cardiac silhouette is unremarkable. Bibasilar interstitial infiltrates with trace bilateral pleural effusions. No pneumothorax. The bony thorax is unremarkable.IMPRESSIONStable portable chest is.Electronically signed by: Vivek Weaver (Mar 26, 2021 05:49:45)
--- NOTE | 2021-03-26 06:20 | RAD ---
HISTORYPneumonia ventilatorSTUDYAP [id number]/2021FINDINGSIncreas ing airspace consolidation in the right lung with stable extent and distribution of left basal infiltrates. Heart size similar. No change in position of support lines.IMPRESSIONPersistent bilateral pneumonia with interval progression in the right lower lung.Electronically signed by: LEONELA BLANCAS (Mar 26, 2021 06:19:15)
[2021-03-26] MEDS: LOVENOX INJ 60 MG SYR SC SCH ×2 (08:32→20:43)
[2021-03-26] MEDS: PEPCID 20 MG IV PREMIX* 20 MG/50 ML BAG IV SCH ×2 (08:33→20:44)
[2021-03-26] MEDS: THIAMINE HCL INJ IVP SCH ×2 (08:33→20:47)
[2021-03-26] MEDS: PROTONIX INJ 40 MG VIAL IVP SCH ×2 (08:33→20:45)
[2021-03-26] MEDS: PULMICORT NEB TX 0.5 MG NEB SCH ×2 (09:15→21:36)
[2021-03-26] MEDS: DIFLUCAN 100 MG IV (MIX by PHARMACY)* 100 MG/50 ML BAG IV SCH (09:35)
[2021-03-26] MEDS: K-RIDER 10 MEQ/NS 100 ML 10 MEQ/100 ML BAG IV PRN (09:36)
--- NOTE | 2021-03-26 10:24 | PCM.PROG ---
Progress Note Progress Note for Day of Date of Exam: 03/26/21 Subjective Subjective: Pt is a 60-year-old female admitted for COVID-19 pneumonia, Acute Respiratory Failure, and pulmonary embolism. She is currently requiring mechanical ventilation with propofol and versed gtt. Has NGT. No acute events overnight. Pt was able to tolerate FiO2 weaned down to 85%. Ventilation sett ings: SIMV, Rate 24, TV 400, PEEP 10, FiO2 85%. Labs/imaging: Wbc 5.6, Hgb 13.2, Plt 186, Na 144, K 3.4, Creatinine 0.73, Glucose 190, ABG was obtained this morning that revealed: pH 7.30, pCO2 52, pO2 68, HCO3 25, O2sat 91%, on FiO2 85%. CXR: Bibasilar interstitial infiltrates with trace bilateral pleural effusions. Pt is receiving pneumonia protocol that includes: IVF D5w@50ml/h, Solumedrol 80mg q6h, scheduled Bronchodilators, Antibiotics: Meropenem and Diflucan, immune supporting supplements, supplemental O2, SSI, I/S, Lovenox 60mg BID, Respiratory therapy consult. Change IVF to KVO. Will order acetazolamide x 1 dose today. Wean FiO2 as tolerated. Otherwise continue with current treatment plan. Will continue to closely monitor and follow up labs/imaging. Critical care time spent 30-74 minutes in clinical assessment, reviewing labs/imaging, decision making, and documentation. Past Medical Family Social History Past Med/Fam/Surg Hx: No changes since H&P Allergies: Allergies acetaminophen [From Darvocet-N] Allergy (Verified 12/25/18 18:39) levofloxacin [From Levaquin] Allergy (Verified 03/12/21 03:56) propoxyphene [From Darvocet-N] Allergy (Verified 12/25/18 18:39) tetracycline Allergy (Verified 12/17/20 18:24) umeclidinium [From Anoro Ellipta] Allergy (Verified 12/17/20 18:24) vilanterol [From Anoro Ellipta] Allergy (Verified 12/17/20 18:24) Review of Systems ROS: Changes notes (describe) Vital Signs and I&O's Vital Signs: Temperature 98.0 F Pulse Rate [Right Brachial] 81 Pulse Rate 89 Respiratory Rate 18 Blood Pressure [Left Arm] 117/58 Blood Pressure 128/78 O2 Sat by Pulse Oximetry 95 Intake and Output: Intake & Output 03/23/21 03/24/21 03/25/21 03/26/21 23:59 23:59 23:59 23:59 Intake Total 4227 / 4227 3900 / 3900 2880 / 2880 772 / 772 Output Total 1850 / 1850 1575 / 1575 2950 / 2950 600 / 600 Balance 2377 / 2377 2325 / 2325 -70 / -70 172 / 172 Physical Exam Oriented: Other (Mechanical ventilation) Eyes: Normal Nose: Normal Respiratory: Diminished, Rales and Rhonchi : Normal Auscultation: Bowel Sounds: Normal Tenderness: Normal Skin: Normal Musculoskeletal: Normal Psychiatric: Other Speech Pattern: Artificially Ventilated Laboratory and Diagnostics Result Diagrams: 03/26/21 04:35 03/26/21 04:35 Labs: 03/23/21 00:49 Sputum - Endotracheal Wash Sputum Culture - Preliminary 03/23/21 00:49 Sputum - Endotracheal Wash - Final 03/21/21 03:30 Sputum - Expectorated Sputum Sputum Culture - Preliminary Chryseom Luteola/Flavim Oryzi 03/21/21 03:30 Sputum - Expectorated Sputum - Final 03/20/21 20:45 Urine,Clean Catch Urine Culture - Final Laboratory WBC 5.6 X10^3/uL (3.6-10.0) D 03/26/21 04:35 RBC 4.90 X10^6/uL (3.5-5.4) 03/26/21 04:35 Hgb 13.2 g/dL (12.0-16.0) D 03/26/21 04:35 Hct 40.6 % (36.0-47.0) 03/26/21 04:35 MCV 82.8 fL (80.0-100.0) 03/26/21 04:35 MCH 27.0 pg (27.0-34.0) 03/26/21 04:35 MCHC 32.6 g/dL (33.0-35.0) L 03/26/21 04:35 RDW 15.0 % (11.6-16.5) 03/26/21 04:35 Plt Count 186 X10^3/uL (150.0-450.0) 03/26/21 04:35 Plt Count Comment Adequate (ADEQUATE) 03/26/21 04:35 MPV 8.9 fL (7.4-11.0) 03/26/21 04:35 Neut % (Auto) 94.9 % (42.0-75.0) H 03/26/21 04:35 Lymph % (Auto) 1.3 % (21.0-51.0) L 03/26/21 04:35 [place] % (Auto) 3.8 % (0.0-13.0) 03/26/21 04:35 Eos % (Auto) 0.0 % (0.9-2.9) L 03/26/21 04:35 Baso % (Auto) 0 % (0.2-1.0) L 03/26/21 04:35 Neut # (Auto) 5.3 x10^3/uL (2.2-4.8) H 03/26/21 04:35 Lymph # (Auto) 0.1 X10^3/uL (1.3-2.9) L 03/26/21 04:35 [place] # (Auto) 0.2 x10^3/uL (0.3-0.8) L 03/26/21 04:35 Eos # (Auto) 0.0 x10^3/uL (0.0-0.2) 03/26/21 04:35 Baso # (Auto) 0.0 X10^3/uL (0.0-0.1) 03/26/21 04:35 Absolute Nucleated RBC 0.2 /100WBC 03/26/21 04:35 Total Counted 100 03/26/21 04:35 Neutrophils % (Manual) 98 % (39-76) H 03/26/21 04:35 Band Neutrophils % 3 % (0-10) 03/21/21 05:06 Lymphocytes % (Manual) 1 % (13-43) L 03/26/21 04:35 Monocytes % (Manual) 1 % (4-9) L 03/26/21 04:35 Plt Morphology Comment Normal (NORMAL) 03/26/21 04:35 RBC Morphology Normal (NORMAL) 03/26/21 04:35 PT 13.4 SECONDS (11.8-14.3) 03/20/21 19:52 INR Target Range - 03/20/21 19:52 INR 1.07 (0.8-1.3) 03/20/21 19:52 APTT 24.8 SECONDS (22.9-36.5) 03/20/21 19:52 PTT Comment - 03/20/21 19:52 D-Dimer 3.42 ug/ml (0.0-0.57) H* 03/20/21 19:52 Sample Site Lr 03/26/21 05:00 ABG pH 7.300 (7.35-7.45) L 03/26/21 05:00 ABG pCO2 52.0 mmHg (35.0-45.0) H* 03/26/21 05:00 ABG pO2 68.0 mmHg (80.0-100.0) L 03/26/21 05:00 ABG HCO3 25.6 mmol/L (22-26) 03/26/21 05:00 ABG O2 Saturation 91.0 % (90-100) 03/26/21 05:00 ABG Base Excess -1.4 mmol/L (-2.0-2.0) 03/26/21 05:00 Laz Test Pos 03/26/21 05:00 A-a Gradient 473.0 mmHg 03/26/21 05:00 FiO2 85.0 03/26/21 05:00 Blood Gas Comments Tino well 03/26/21 05:00 Sodium 144 mmol/L (136-145) 03/26/21 04:35 Corrected Sodium 146 mmol/L (136-145) H 03/26/21 04:35 Potassium 3.4 mmol/L (3.5-5.1) L 03/26/21 04:35 Chloride 115 mmol/L (98-107) H* 03/26/21 04:35 Carbon Dioxide 23.9 mmol/L (21-32) 03/26/21 04:35 BUN 33 mg/dL (7-18) H 03/26/21 04:35 Creatinine 0.73 mg/dL (0.55-1.02) 03/26/21 04:35 Est GFR (MDRD) Af Amer > 60 (>60) 03/26/21 04:35 Est GFR (MDRD) Non-Af > 60 (>60) 03/26/21 04:35 Glucose 190 mg/dL (65-99) H 03/26/21 04:35 Calcium 7.5 mg/dL (8.5-10.1) L 03/26/21 04:35 Corrected Calcium 9.2 mg/dL (8.5-10.1) 03/26/21 04:35 Magnesium 2.8 mg/dL (1.7-2.9) 03/26/21 04:35 Total Bilirubin 0.20 mg/dL (0.2-1.0) 03/26/21 04:35 AST 16 Units/L (15-37) 03/26/21 04:35 ALT 15 Units/L (12-78) 03/26/21 04:35 Alkaline Phosphatase 70 Units/L (46-116) 03/26/21 04:35 Creatine Kinase 40 Units/L (26-192) 03/20/21 19:52 CK-MB (CK-2) 2.4 ng/mL (0-4.0) 03/20/21 19:52 CK/CKMB % Calc 6.0 % (<4) 03/20/21 19:52 Troponin I < 0.02 ng/mL (0-1.5) 03/20/21 19:52 C-Reactive Protein 9.70 mg/L (0-3.0) H 03/23/21 04:22 B-Natriuretic Peptide 48.0 pg/mL (0-79) 03/20/21 19:52 Total Protein 5.2 g/dL (6.4-8.2) L 03/26/21 04:35 Albumin 1.9 g/dL (3.4-5.0) L 03/26/21 04:35 Globulin 3.3 g/dL (2.5-4.5) 03/26/21 04:35 Albumin/Globulin Ratio 0.6 Ratio (1.1-2.1) L 03/26/21 04:35 Specimen Type Catherized urine 03/20/21 20:45 Urine Color Yellow (YELLOW) 03/20/21 20:45 Urine Appearance Clear (CLEAR) 03/20/21 20:45 Urine pH 6.0 (5.0 - 8.0) 03/20/21 20:45 Ur Specific [place] 1.010 (1.000-1.030) 03/20/21 20:45 Urine Protein 2+ (NEGATIVE) 03/20/21 20:45 Urine Glucose (UA) Negative (NEGATIVE) 03/20/21 20:45 Urine Ketones Negative (NEGATIVE) 03/20/21 20:45 Urine Occult Blood 1+ (NEGATIVE) 03/20/21 20:45 Urine Nitrite Negative (NEGATIVE) 03/20/21 20:45 Urine Bilirubin Negative (NEGATIVE) 03/20/21 20:45 Urine Urobilinogen Normal (NORMAL) 03/20/21 20:45 Ur Leukocyte Esterase Negative (NEGATIVE) 03/20/21 20:45 Urine RBC 5-10 /HPF (0-3) A 03/20/21 20:45 Urine WBC 3-5 /HPF (0-5) 03/20/21 20:45 Ur Squamous Epith Cells Rare /HPF (NEGATIVE) 03/20/21 20:45 Urine Bacteria Trace /HPF (NEGATIVE) 03/20/21 20:45 Ur Culture Indicated? No/not indicated 03/20/21 20:45 SARS-CoV-2 (PCR) Positive (NEGATIVE) A 03/21/21 00:07 Influenza Type A (PCR) Negative (NEGATIVE) 03/21/21 00:07 Influenza Type B (PCR) Negative (NEGATIVE) 03/21/21 00:07 RSV (PCR) Negative (NEGATIVE) 03/21/21 00:07 Plan (1) Pneumonia due to COVID-19 virus: Status: Acute Plan: Mechanical ventilation (2) Acute respiratory failure: Status: Acute
[2021-03-26] MEDS ORDERED: DIAMOX PO ONE (10:30)
[2021-03-26] MEDS ORDERED: DIAMOX ONE (11:18)
[2021-03-27] MEDS: PROVENTIL NEB TX 0.083% 2.5MG/ 3ML NEB SCH ×6 (00:51→20:58)
[2021-03-27] MEDS: D5W 1,000 ML IV 1,000 ML IV SCH ×2 (02:11→15:06)
[2021-03-27] MEDS: ASCORBIC ACID INJ MULTI-DOSE VIAL 1,500 MG in NS 100 ML IV 100 ML IV SCH ×4 (02:51→20:57)
[2021-03-27] MEDS: SOLU-Medrol 40 MG VIAL IVP SCH ×4 (02:51→21:05)
[2021-03-27] MEDS: DIPRIVAN PREMIX 1 GRAM IV 1,000 MG/100 ML VIAL IV PRN ×4 (03:47→22:54)
[2021-03-27 05:12] LABS: BASOPHILS % (AUTO) 0.2 % (0.2-1.0); EOSINOPHILS % (AUTO) 0.1 % (0.9-2.9); HEMATOCRIT 28.1 % (36.0-47.0); HEMOGLOBIN 9.1 g/dL (12.0-16.0); LYMPHOCYTES # (AUTO) 0.1 X10^3/uL (1.3-2.9); LYMPHOCYTES % (AUTO) 1.3 % (21.0-51.0); MEAN CORPUSCULAR HEMOGLOBIN 27.3 pg (27.0-34.0); MEAN CORPUSCULAR HGB CONC 32.5 g/dL (33.0-35.0); MEAN CORPUSCULAR VOLUME 84.1 fL (80.0-100.0); MONOCYTES # (AUTO) 0.5 x10^3/uL (0.3-0.8); MONOCYTES % (AUTO) 4.3 % (0.0-13.0); NEUTROPHILS # (AUTO) 10.9 x10^3/uL (2.2-4.8); NEUTROPHILS % (AUTO) 94.1 % (42.0-75.0); PLATELET COUNT 262 X10^3/uL (150.0-450.0); RED BLOOD COUNT 3.34 X10^6/uL (3.5-5.4); WHITE BLOOD COUNT 11.5 X10^3/uL (3.6-10.0)
[2021-03-27 05:25] LABS: ALANINE AMINOTRANSFERASE 13 Units/L (12-78); ALBUMIN 1.9 g/dL (3.4-5.0); ALKALINE PHOSPHATASE 73 Units/L (46-116); ASPARTATE AMINO TRANSFERASE 13 Units/L (15-37); BLOOD UREA NITROGEN 34 mg/dL (7-18); CALCIUM 7.7 mg/dL (8.5-10.1); CARBON DIOXIDE 24.1 mmol/L (21-32); COR CA(FOR HYPOALB) 9.4 mg/dL (8.5-10.1); COR NA(FOR HYPERGLY) 154 mmol/L (136-145); CREATININE 0.61 mg/dL (0.55-1.02); TOTAL PROTEIN 5.2 g/dL (6.4-8.2); eGFR NON BLACK RACES > 60 (>60)
[2021-03-27 05:30] LABS: CHLORIDE 119 mmol/L (98-107); SODIUM 152 mmol/L (136-145)
[2021-03-27 05:41] LABS: ABG BASE EXCESS -2.6 mmol/L (-2.0-2.0); ABG HCO3 25.7 mmol/L (22-26)
[2021-03-27 05:42] LABS: ABG ALLEN TEST POS
--- NOTE | 2021-03-27 05:44 | RAD ---
HISTORYPNEUMONIA F/U, VENTILATOR DEPENDENCE HTN, HYSTERECTOMYSTUDYCHEST, 1 [id number]/28/2021 isFINDINGSThe trachea is midline. Endotracheal tube tip above the rupal. NG tube below the hemidiaphragm. Left central line unchanged with tip in the SVC. The cardiac silhouette is unremarkable. Bibasilar interstitial infiltrates with small bilateral pleural effusions unchanged. No pneumothorax. The bony thorax is unremarkable.IMPRESSIONStable portable chest.Electronically signed by: Vivek Weaver (Mar 27, 2021 05:42:36)
[2021-03-27] MEDS: MERREM VIAL 500 MG in NS 100 ML IV + SPIKE MINIBAG* 100 ML IV SCH ×3 (05:50→22:51)
[2021-03-27] MEDS: VERSED IV PREMIX 100 MG/100 ML IV.SOLN IV PRN ×3 (05:51→19:51)
[2021-03-27 05:53] LABS: PLATELET MORPHOLOGY COMMENT NORMAL (NORMAL)
[2021-03-27] MEDS: PEPCID 20 MG IV PREMIX* 20 MG/50 ML BAG IV SCH ×2 (08:34→21:04)
[2021-03-27] MEDS: PROTONIX INJ 40 MG VIAL IVP SCH ×2 (08:34→21:04)
[2021-03-27] MEDS: PULMICORT NEB TX 0.5 MG NEB SCH ×2 (08:35→20:58)
[2021-03-27] MEDS: LOVENOX INJ 60 MG SYR SC SCH ×2 (08:35→21:00)
[2021-03-27] MEDS: THIAMINE HCL INJ IVP SCH ×2 (08:35→21:06)
[2021-03-27] MEDS: DIFLUCAN 100 MG IV (MIX by PHARMACY)* 100 MG/50 ML BAG IV SCH (09:29)
[2021-03-27] MEDS ORDERED: NS 500 ML IV 500 ML IV ONE (10:11)
[2021-03-27] MEDS: CYTOTEC PO SCH ×3 (13:04→20:59)
[2021-03-27] MEDS: FLUVOXAMINE MALEATE PO SCH (20:59)
[2021-03-27] MEDS: MELATONIN PO SCH (21:03)
[2021-03-28] MEDS: PROVENTIL NEB TX 0.083% 2.5MG/ 3ML NEB SCH ×7 (00:28→21:00)
[2021-03-28] MEDS: SOLU-Medrol 40 MG VIAL IVP SCH ×4 (02:31→20:55)
[2021-03-28] MEDS: ASCORBIC ACID INJ MULTI-DOSE VIAL 1,500 MG in NS 100 ML IV 100 ML IV SCH ×4 (02:31→20:54)
[2021-03-28] MEDS: VERSED IV PREMIX 100 MG/100 ML IV.SOLN IV PRN ×4 (02:32→23:17)
[2021-03-28 04:55] LABS: BASOPHILS # (AUTO) 0.1 X10^3/uL (0.0-0.1); BASOPHILS % (AUTO) 0.7 % (0.2-1.0); HEMATOCRIT 28.5 % (36.0-47.0); HEMOGLOBIN 9.2 g/dL (12.0-16.0); LYMPHOCYTES # (AUTO) 0.1 X10^3/uL (1.3-2.9); MEAN CORPUSCULAR HEMOGLOBIN 27.1 pg (27.0-34.0); MEAN CORPUSCULAR HGB CONC 32.2 g/dL (33.0-35.0); MEAN CORPUSCULAR VOLUME 84.1 fL (80.0-100.0); MEAN PLATELET VOLUME 9.5 fL (7.4-11.0); MONOCYTES # (AUTO) 0.4 x10^3/uL (0.3-0.8); MONOCYTES % (AUTO) 3.6 % (0.0-13.0); NEUTROPHILS # (AUTO) 11.6 x10^3/uL (2.2-4.8); NEUTROPHILS % (AUTO) 94.7 % (42.0-75.0); PLATELET COUNT 252 X10^3/uL (150.0-450.0); RED BLOOD COUNT 3.39 X10^6/uL (3.5-5.4); RED CELL DISTRIBUTION WIDTH 14.9 % (11.6-16.5); WHITE BLOOD COUNT 12.2 X10^3/uL (3.6-10.0)
[2021-03-28 05:04] LABS: ALANINE AMINOTRANSFERASE 13 Units/L (12-78); ALBUMIN 1.8 g/dL (3.4-5.0); ALKALINE PHOSPHATASE 74 Units/L (46-116); ASPARTATE AMINO TRANSFERASE 11 Units/L (15-37); BLOOD UREA NITROGEN 42 mg/dL (7-18); CALCIUM 7.5 mg/dL (8.5-10.1); CARBON DIOXIDE 26.4 mmol/L (21-32); COR CA(FOR HYPOALB) 9.3 mg/dL (8.5-10.1); COR NA(FOR HYPERGLY) 155 mmol/L (136-145); CREATININE 0.73 mg/dL (0.55-1.02); eGFR NON BLACK RACES > 60 (>60)
[2021-03-28 05:05] LABS: SODIUM 153 mmol/L (136-145)
[2021-03-28] MEDS: D5W 1,000 ML IV 1,000 ML IV SCH (05:05)
[2021-03-28] MEDS: MERREM VIAL 500 MG in NS 100 ML IV + SPIKE MINIBAG* 100 ML IV SCH ×3 (05:05→22:28)
[2021-03-28 05:06] LABS: CHLORIDE 120 mmol/L (98-107)
[2021-03-28 05:33] LABS: ABG BASE EXCESS -1.2 mmol/L (-2.0-2.0); ABG HCO3 26.9 mmol/L (22-26)
[2021-03-28 05:34] LABS: ABG ALLEN TEST POS
[2021-03-28 05:45] LABS: PLATELET MORPHOLOGY COMMENT NORMAL (NORMAL)
[2021-03-28] MEDS: DIPRIVAN PREMIX 1 GRAM IV 1,000 MG/100 ML VIAL IV PRN ×3 (05:58→21:37)
[2021-03-28] MEDS: PULMICORT NEB TX 0.5 MG NEB SCH ×2 (08:47→21:00)
[2021-03-28] MEDS: LIPITOR TAB 80 MG PO SCH (09:04)
[2021-03-28] MEDS: DIFLUCAN 100 MG IV (MIX by PHARMACY)* 100 MG/50 ML BAG IV SCH ×2 (09:05→09:21)
[2021-03-28] MEDS: FLUVOXAMINE MALEATE PO SCH ×2 (09:05→20:51)
[2021-03-28] MEDS: CYTOTEC PO SCH ×4 (09:05→20:48)
[2021-03-28] MEDS: VITAMIN A PO SCH (09:05)
[2021-03-28] MEDS: LOVENOX INJ 60 MG SYR SC SCH ×2 (09:06→20:51)
[2021-03-28] MEDS: PEPCID 20 MG IV PREMIX* 20 MG/50 ML BAG IV SCH ×2 (09:06→20:52)
[2021-03-28] MEDS: PROTONIX INJ 40 MG VIAL IVP SCH ×2 (09:06→20:52)
[2021-03-28] MEDS: THIAMINE HCL INJ IVP SCH ×2 (09:07→20:56)
[2021-03-28] MEDS: ACTOS PO SCH (09:27)
[2021-03-28] MEDS: ALBUMIN HUMAN 25%- 100 ML 100 ML IV SCH (09:27)
[2021-03-28] MEDS: NS 1/2 + KCL 20 MEQ/L 1,000 ML IV SCH ×2 (09:28→17:18)
[2021-03-28] MEDS: DIFLUCAN 200 MG IV PREMIX* 200 MG/100 ML BAG IV SCH (09:28)
[2021-03-28] MEDS ORDERED: NS 100 ML IV 100 ML ONE (20:45)
[2021-03-28] MEDS: MELATONIN PO SCH (20:52)
[2021-03-29] MEDS: PROVENTIL NEB TX 0.083% 2.5MG/ 3ML NEB SCH ×6 (01:30→20:25)
[2021-03-29] MEDS: DIPRIVAN PREMIX 1 GRAM IV 1,000 MG/100 ML VIAL IV PRN ×3 (02:16→15:45)
[2021-03-29] MEDS: NS 1/2 + KCL 20 MEQ/L 1,000 ML IV SCH ×4 (02:16→17:04)
[2021-03-29] MEDS: SOLU-Medrol 40 MG VIAL IVP SCH ×4 (03:31→21:34)
[2021-03-29] MEDS: ASCORBIC ACID INJ MULTI-DOSE VIAL 1,500 MG in NS 100 ML IV 100 ML IV SCH ×4 (03:31→20:30)
[2021-03-29 05:03] LABS: BASOPHILS % (AUTO) 0 % (0.2-1.0); HEMATOCRIT 27.6 % (36.0-47.0); LYMPHOCYTES # (AUTO) 0.3 X10^3/uL (1.3-2.9); MEAN CORPUSCULAR HEMOGLOBIN 27.4 pg (27.0-34.0); MEAN CORPUSCULAR HGB CONC 32.7 g/dL (33.0-35.0); MEAN CORPUSCULAR VOLUME 83.8 fL (80.0-100.0); MEAN PLATELET VOLUME 9.4 fL (7.4-11.0); MONOCYTES # (AUTO) 0.7 x10^3/uL (0.3-0.8); NEUTROPHILS # (AUTO) 13.8 x10^3/uL (2.2-4.8); PLATELET COUNT 240 X10^3/uL (150.0-450.0); RED BLOOD COUNT 3.29 X10^6/uL (3.5-5.4); RED CELL DISTRIBUTION WIDTH 15.2 % (11.6-16.5); WHITE BLOOD COUNT 14.8 X10^3/uL (3.6-10.0)
[2021-03-29 05:07] LABS: ALANINE AMINOTRANSFERASE 15 Units/L (12-78); ALBUMIN 2.1 g/dL (3.4-5.0); ALKALINE PHOSPHATASE 83 Units/L (46-116); ASPARTATE AMINO TRANSFERASE 17 Units/L (15-37); BLOOD UREA NITROGEN 44 mg/dL (7-18); CALCIUM 7.2 mg/dL (8.5-10.1); CARBON DIOXIDE 24.4 mmol/L (21-32); COR CA(FOR HYPOALB) 8.7 mg/dL (8.5-10.1); COR NA(FOR HYPERGLY) 152 mmol/L (136-145); CREATININE 0.66 mg/dL (0.55-1.02); eGFR NON BLACK RACES > 60 (>60)
[2021-03-29 05:10] LABS: ABG BASE EXCESS -3.2 mmol/L (-2.0-2.0)
[2021-03-29 05:32] LABS: PLATELET MORPHOLOGY COMMENT NORMAL (NORMAL)
[2021-03-29 05:33] LABS: SODIUM 151 mmol/L (136-145)
[2021-03-29 05:34] LABS: CHLORIDE 119 mmol/L (98-107)
[2021-03-29] MEDS: MERREM VIAL 500 MG in NS 100 ML IV + SPIKE MINIBAG* 100 ML IV SCH ×3 (05:49→22:02)
[2021-03-29] MEDS: VERSED IV PREMIX 100 MG/100 ML IV.SOLN IV PRN ×3 (05:50→19:30)
--- NOTE | 2021-03-29 06:08 | RAD ---
HISTORYFollow up respiratory failureSTUDYChest AP [id number]/29/2021FINDINGSPati ent is rotated to the left. There is an endotracheal tube in good position. There is a nasogastric tube coursing below the left hemidiaphragm. Its tip is not visible. There is a left-sided central line in the expected position of superior vena cava. Heart size is normal. Bilateral predominantly lower lobe interstitial, ground-glass, and alveolar infiltrates are unchanged considering a difference in film technique. No pleural effusion or pneumothorax is identified. Bony thorax is unremarkable.IMPRESSIONNo change diffuse bilateral predominantly lower lobe interstitial, ground-glass, and alveolar infiltrates when compared to the prior examinationElectronically signed by: JESIKA BENOIT (Mar 29, 2021 06:06:12)
[2021-03-29] MEDS: ACTOS PO SCH (08:04)
[2021-03-29] MEDS: ALBUMIN HUMAN 25%- 100 ML 100 ML IV SCH (08:04)
[2021-03-29] MEDS: CYTOTEC PO SCH ×4 (08:06→21:34)
[2021-03-29] MEDS: LIPITOR TAB 80 MG PO SCH (08:06)
[2021-03-29] MEDS: DIFLUCAN 200 MG IV PREMIX* 200 MG/100 ML BAG IV SCH (08:06)
[2021-03-29] MEDS: FLUVOXAMINE MALEATE PO SCH ×2 (08:06→21:34)
[2021-03-29] MEDS: PEPCID 20 MG IV PREMIX* 20 MG/50 ML BAG IV SCH ×2 (08:07→21:38)
[2021-03-29] MEDS: LOVENOX INJ 60 MG SYR SC SCH ×2 (08:07→20:30)
[2021-03-29] MEDS: VITAMIN A PO SCH (08:08)
[2021-03-29] MEDS: THIAMINE HCL INJ IVP SCH ×2 (08:08→20:30)
[2021-03-29] MEDS: PROTONIX INJ 40 MG VIAL IVP SCH ×2 (08:08→20:30)
[2021-03-29] MEDS: VITAMIN D3 125 mcg (5,000 UNITS) PO SCH (08:08)
[2021-03-29] MEDS ORDERED: NS 100 ML IV 100 ML ONE (08:18)
[2021-03-29] MEDS: PULMICORT NEB TX 0.5 MG NEB SCH ×2 (08:33→20:25)
[2021-03-29] MEDS ORDERED: LR 1,000 ML IV 1,000 ML IV ONE (09:01)
[2021-03-29] MEDS: ZITHROMAX INJ 500 MG VIAL 500 MG in NS 250 ML IV 250 ML IV SCH ×2 (09:37→09:39)
[2021-03-29 11:36] LABS: ABG BASE EXCESS -5.6 mmol/L (-2.0-2.0); ABG HCO3 22.8 mmol/L (22-26)
[2021-03-29] MEDS ORDERED: NS 1/2 1,000 ML IV 1,000 ML IV ONE (20:36)
[2021-03-29 21:04] LABS: ABG BASE EXCESS -5.2 mmol/L (-2.0-2.0); ABG HCO3 24.4 mmol/L (22-26)
[2021-03-29] MEDS: MELATONIN PO SCH (21:34)
[2021-03-29] MEDS: VORICONAZOLE IV SCH (22:01)
[2021-03-29] MEDS: NS IV SCH (22:01)
[2021-03-29 23:14] LABS: ABG BASE EXCESS -5.3 mmol/L (-2.0-2.0); ABG HCO3 23.7 mmol/L (22-26)
[2021-03-30] MEDS: NS 1/2 + KCL 20 MEQ/L 1,000 ML IV SCH ×3 (02:05→18:23)
[2021-03-30] MEDS: ASCORBIC ACID INJ MULTI-DOSE VIAL 1,500 MG in NS 100 ML IV 100 ML IV SCH ×4 (02:05→21:00)
[2021-03-30] MEDS: VERSED IV PREMIX 100 MG/100 ML IV.SOLN IV PRN ×3 (02:45→20:15)
[2021-03-30] MEDS: SOLU-Medrol 40 MG VIAL IVP SCH ×4 (03:43→21:30)
[2021-03-30 04:02] LABS: ABG BASE EXCESS -4.2 mmol/L (-2.0-2.0); ABG HCO3 23.3 mmol/L (22-26)
[2021-03-30] MEDS: PROVENTIL NEB TX 0.083% 2.5MG/ 3ML NEB SCH ×6 (04:04→21:07)
[2021-03-30] MEDS: MERREM VIAL 500 MG in NS 100 ML IV + SPIKE MINIBAG* 100 ML IV SCH ×3 (05:13→22:00)
[2021-03-30 05:56] LABS: MEAN CORPUSCULAR VOLUME 84.9 fL (80.0-100.0); RED CELL DISTRIBUTION WIDTH 15.3 % (11.6-16.5)
[2021-03-30 05:59] LABS: BASOPHILS % (AUTO) 0 % (0.2-1.0); HEMATOCRIT 22.8 % (36.0-47.0); HEMOGLOBIN 7.4 g/dL (12.0-16.0); LYMPHOCYTES # (AUTO) 0.2 X10^3/uL (1.3-2.9); LYMPHOCYTES % (AUTO) 2.3 % (21.0-51.0); MEAN CORPUSCULAR HEMOGLOBIN 27.7 pg (27.0-34.0); MEAN CORPUSCULAR HGB CONC 32.7 g/dL (33.0-35.0); MEAN PLATELET VOLUME 9.7 fL (7.4-11.0); MONOCYTES # (AUTO) 0.7 x10^3/uL (0.3-0.8); MONOCYTES % (AUTO) 6.5 % (0.0-13.0); NEUTROPHILS # (AUTO) 9.9 x10^3/uL (2.2-4.8); NEUTROPHILS % (AUTO) 91.2 % (42.0-75.0); PLATELET COUNT 170 X10^3/uL (150.0-450.0); RED BLOOD COUNT 2.68 X10^6/uL (3.5-5.4); WHITE BLOOD COUNT 10.9 X10^3/uL (3.6-10.0)
--- NOTE | 2021-03-30 06:16 | RAD ---
HISTORYVENTILATOR DEPENDENCESTUDYCHEST, 1 VIEWCOMPARISONOne day prior.TECHNIQUEAP view of the chestFINDINGSET tube in good position. Left subclavian central line is in good position. NG tube courses below the visualized field of view. Cardiac and mediastinal contours are within normal limits. Background of COPD. Stable bilateral infiltrates. Blunted left costophrenic sulcus may represent scar or pleural effusion. No pneumothorax.IMPRESSIONNo significant change in COPD with bilateral pneumonia.Electronically signed by: Joseph Corey (Mar 30, 2021 06:15:58)
[2021-03-30 06:32] LABS: ALANINE AMINOTRANSFERASE 16 Units/L (12-78); ALBUMIN 2.2 g/dL (3.4-5.0); ALKALINE PHOSPHATASE 76 Units/L (46-116); ASPARTATE AMINO TRANSFERASE 14 Units/L (15-37); BLOOD UREA NITROGEN 51 mg/dL (7-18); CALCIUM 7.2 mg/dL (8.5-10.1); CARBON DIOXIDE 21.4 mmol/L (21-32); COR CA(FOR HYPOALB) 8.6 mg/dL (8.5-10.1); COR NA(FOR HYPERGLY) 152 mmol/L (136-145); CREATININE 0.63 mg/dL (0.55-1.02); TOTAL PROTEIN 4.6 g/dL (6.4-8.2); eGFR NON BLACK RACES > 60 (>60)
[2021-03-30 06:45] LABS: CHLORIDE 120 mmol/L (98-107); SODIUM 151 mmol/L (136-145)
[2021-03-30 06:55] LABS: BAND NEUTROPHILS % 1 % (0-10); PLATELET MORPHOLOGY COMMENT NORMAL (NORMAL)
[2021-03-30] MEDS ORDERED: NS 500 ML IV 500 ML IV ONE (07:10)
[2021-03-30] MEDS: PULMICORT NEB TX 0.5 MG NEB SCH ×2 (09:10→21:07)
[2021-03-30] MEDS: ALBUMIN HUMAN 25%- 100 ML 100 ML IV SCH ×2 (09:16→21:00)
[2021-03-30] MEDS: ACTOS PO SCH (09:16)
[2021-03-30] MEDS: CYTOTEC PO SCH ×4 (09:18→21:30)
[2021-03-30] MEDS: THIAMINE HCL INJ IVP SCH ×2 (09:19→21:30)
[2021-03-30] MEDS: VITAMIN D3 125 mcg (5,000 UNITS) PO SCH (09:19)
[2021-03-30] MEDS: LOVENOX INJ 60 MG SYR SC SCH ×2 (09:20→21:30)
[2021-03-30] MEDS: PROTONIX INJ 40 MG VIAL IVP SCH ×2 (09:20→21:30)
[2021-03-30] MEDS: IVERMECTIN PO SCH (09:21)
[2021-03-30] MEDS: LIPITOR TAB 80 MG PO SCH (09:22)
[2021-03-30] MEDS: FLUVOXAMINE MALEATE PO SCH ×2 (09:23→21:30)
[2021-03-30] MEDS: DIPRIVAN PREMIX 1 GRAM IV 1,000 MG/100 ML VIAL IV PRN ×3 (09:34→19:50)
[2021-03-30] MEDS: ZITHROMAX INJ 500 MG VIAL 500 MG in NS 250 ML IV 250 ML IV SCH (09:37)
[2021-03-30] MEDS ORDERED: LR 1,000 ML IV 1,000 ML IV ONE (09:39)
[2021-03-30] MEDS: VITAMIN A PO SCH (09:46)
[2021-03-30] MEDS: PEPCID 20 MG IV PREMIX* 20 MG/50 ML BAG IV SCH ×2 (09:46→21:32)
[2021-03-30] MEDS: NS IV SCH (09:47)
[2021-03-30] MEDS: VORICONAZOLE IV SCH (09:47)
[2021-03-30] MEDS: LACRI-LUBE S.O.P. AFFEYE PRN (13:00)
[2021-03-30 18:40] LABS: HEMATOCRIT 30.6 % (36.0-47.0)
[2021-03-30 18:43] LABS: HEMOGLOBIN 10.1 g/dL (12.0-16.0)
[2021-03-30 19:54] LABS: ABG BASE EXCESS -7.2 mmol/L (-2.0-2.0); ABG HCO3 21.9 mmol/L (22-26)
[2021-03-30] MEDS ORDERED: MUCOMYST (RESPIRATORY USE ONLY) ONE (20:11)
[2021-03-30] MEDS: VORICONAZOLE 200 MG in NS 50 ML IV + SPIKE MINIBAG* 50 ML IV SCH (21:00)
--- NOTE | 2021-03-30 21:01 | RAD ---
EXAM: CHEST X-RAYHISTORY: Low O2 saturation.TECHNIQUE: CXR dated March 30, 2021 at 7:54 PM.COMPARISON: CXR dated March 30, 2021 at 5:40 AM.FINDINGS:Tracheostomy tube is noted in situ with the distal tip approximately 8.2 cm above the rupal (adequate position). There is a stable left subclavian central venous catheter with distal tip in SVC (adequate position). Recommend careful clinical correlation to ensure venous blood return.There is severe aortic atherosclerosis. The heart size and mediastinum are within normal limits. There is lung parenchymal hyperinflation and hyperlucency in keeping with severe COPD/centrilobular emphysema.There is severe prominence of the bronchopulmonary markings which may represent moderate to severe cardiogenic or noncardiogenic pulmonary edema/congestion and/or interstitial pneumonia in the appropriate clinical setting.There is no pleural effusion, or pneumothorax seen. The visualized bony structures are within normal limits.IMPRESSION:1. Severe prominence of the bronchopulmonary markings which may represent moderate to severe cardiogenic or noncardiogenic pulmonary edema/congestion and/or interstitial pneumonia in the appropriate clinical setting.2. Severe COPD/centrilobular emphysema.3. Overall, no significant interval change seen.Electronically signed by: Karely Nance (Mar 30, 2021 20:59:44)
[2021-03-30] MEDS ORDERED: LASIX IVP ONE ×2 (21:17→21:22)
[2021-03-30] MEDS: MELATONIN PO SCH (21:30)
[2021-03-30 21:52] LABS: BLOOD UREA NITROGEN 54 mg/dL (7-18); CALCIUM 7.1 mg/dL (8.5-10.1); COR NA(FOR HYPERGLY) 151 mmol/L (136-145); CREATININE 0.74 mg/dL (0.55-1.02); SODIUM 149 mmol/L (136-145); eGFR NON BLACK RACES > 60 (>60)
[2021-03-30 22:04] LABS: CHLORIDE 117 mmol/L (98-107)
[2021-03-31] MEDS: PROVENTIL NEB TX 0.083% 2.5MG/ 3ML NEB SCH ×6 (01:28→20:48)
[2021-03-31] MEDS: NS 1/2 + KCL 20 MEQ/L 1,000 ML IV SCH ×3 (02:10→17:13)
[2021-03-31] MEDS: ASCORBIC ACID INJ MULTI-DOSE VIAL 1,500 MG in NS 100 ML IV 100 ML IV SCH ×4 (03:00→21:15)
[2021-03-31] MEDS: SOLU-Medrol 40 MG VIAL IVP SCH ×3 (03:00→21:14)
[2021-03-31] MEDS: VERSED IV PREMIX 100 MG/100 ML IV.SOLN IV PRN ×2 (04:35→15:55)
[2021-03-31] MEDS: DIPRIVAN PREMIX 1 GRAM IV 1,000 MG/100 ML VIAL IV PRN ×2 (05:15→17:14)
[2021-03-31 05:18] LABS: ABG BASE EXCESS -2.6 mmol/L (-2.0-2.0); ABG HCO3 24.5 mmol/L (22-26)
[2021-03-31] MEDS: MERREM VIAL 500 MG in NS 100 ML IV + SPIKE MINIBAG* 100 ML IV SCH ×3 (05:19→22:00)
[2021-03-31 05:21] LABS: BASOPHILS % (AUTO) 0.3 % (0.2-1.0); HEMATOCRIT 25.9 % (36.0-47.0); HEMOGLOBIN 8.7 g/dL (12.0-16.0); LYMPHOCYTES # (AUTO) 0.1 X10^3/uL (1.3-2.9); LYMPHOCYTES % (AUTO) 1.4 % (21.0-51.0); MEAN CORPUSCULAR HEMOGLOBIN 28.4 pg (27.0-34.0); MEAN CORPUSCULAR HGB CONC 33.6 g/dL (33.0-35.0); MEAN CORPUSCULAR VOLUME 84.5 fL (80.0-100.0); MEAN PLATELET VOLUME 10.3 fL (7.4-11.0); MONOCYTES # (AUTO) 0.7 x10^3/uL (0.3-0.8); NEUTROPHILS # (AUTO) 8.9 x10^3/uL (2.2-4.8); NEUTROPHILS % (AUTO) 91.3 % (42.0-75.0); PLATELET COUNT 137 X10^3/uL (150.0-450.0); RED BLOOD COUNT 3.06 X10^6/uL (3.5-5.4); RED CELL DISTRIBUTION WIDTH 14.5 % (11.6-16.5); WHITE BLOOD COUNT 9.8 X10^3/uL (3.6-10.0)
[2021-03-31 05:30] LABS: ALANINE AMINOTRANSFERASE 14 Units/L (12-78); ALBUMIN 2.8 g/dL (3.4-5.0); ALKALINE PHOSPHATASE 75 Units/L (46-116); ASPARTATE AMINO TRANSFERASE 14 Units/L (15-37); BLOOD UREA NITROGEN 55 mg/dL (7-18); CALCIUM 7.4 mg/dL (8.5-10.1); CARBON DIOXIDE 26.5 mmol/L (21-32); COR CA(FOR HYPOALB) 8.4 mg/dL (8.5-10.1); COR NA(FOR HYPERGLY) 152 mmol/L (136-145); CREATININE 0.72 mg/dL (0.55-1.02); TOTAL PROTEIN 4.8 g/dL (6.4-8.2); eGFR NON BLACK RACES > 60 (>60)
[2021-03-31 05:46] LABS: CHLORIDE 118 mmol/L (98-107); SODIUM 151 mmol/L (136-145)
[2021-03-31 05:49] LABS: BAND NEUTROPHILS % 2 % (0-10); PLATELET MORPHOLOGY COMMENT NORMAL (NORMAL)
[2021-03-31] MEDS: PULMICORT NEB TX 0.5 MG NEB SCH ×2 (09:30→20:48)
[2021-03-31] MEDS: ACTOS PO SCH (09:51)
[2021-03-31] MEDS: ALBUMIN HUMAN 25%- 100 ML 100 ML IV SCH ×2 (09:51→20:51)
[2021-03-31] MEDS: CYTOTEC PO SCH ×4 (09:52→21:15)
[2021-03-31] MEDS: FLUVOXAMINE MALEATE PO SCH ×2 (09:52→21:16)
[2021-03-31] MEDS: LIPITOR TAB 80 MG PO SCH (09:53)
[2021-03-31] MEDS: VORICONAZOLE 200 MG in NS 50 ML IV + SPIKE MINIBAG* 50 ML IV SCH ×2 (09:53→21:18)
[2021-03-31] MEDS: IVERMECTIN PO SCH (09:54)
[2021-03-31] MEDS: LOVENOX INJ 60 MG SYR SC SCH ×2 (09:54→21:13)
[2021-03-31] MEDS: VITAMIN D3 125 mcg (5,000 UNITS) PO SCH (09:55)
[2021-03-31] MEDS: THIAMINE HCL INJ IVP SCH ×2 (09:55→21:17)
[2021-03-31] MEDS: ZITHROMAX INJ 500 MG VIAL 500 MG in NS 250 ML IV 250 ML IV SCH (09:55)
[2021-03-31] MEDS: PROTONIX INJ 40 MG VIAL IVP SCH ×2 (09:55→21:16)
[2021-03-31] MEDS: VITAMIN A PO SCH (09:55)
[2021-03-31] MEDS: PEPCID 20 MG IV PREMIX* 20 MG/50 ML BAG IV SCH (10:57)
[2021-03-31] MEDS ORDERED: LASIX IVP ONE ×3 (15:38→21:11)
[2021-03-31 17:24] LABS: HEMATOCRIT 23.3 % (36.0-47.0); HEMOGLOBIN 7.7 g/dL (12.0-16.0)
[2021-03-31] MEDS ORDERED: NS 500 ML IV 500 ML IV ONE (18:41)
--- NOTE | 2021-03-31 20:47 | RAD ---
EXAM: CHEST X-RAYHISTORY: Oxygen desaturation.TECHNIQUE: AP CXR dated March 31, 2021 at 8:25 PM.COMPARISON: CXR dated March 30, 2021.FINDINGS:Tracheostomy tube is noted in situ with the distal tip approximately 5.6 cm above the rupal (adequate position). There is a stable left subclavian central venous catheter with distal tip in SVC (adequate position). Recommend careful clinical correlation to ensure venous blood return.There are severe diffuse bilateral lung parenchymal infiltrates, especially in the upper lung cast, in keeping with severe centrilobular lung parenchymal emphysema (stable).There is evidence for cardiomegaly. There are severe bilateral lung parenchymal infiltrates, consistent with moderate to severe CHF or volume overload in the appropriate clinical setting; differential diagnosis includes (but is not limited to) mild bronchitis and interstitial pneumonia in the appropriate clinical setting.There is no gross focal lung consolidation, pleural effusion, or pneumothorax seen. The visualized bony structures are within normal limits.IMPRESSION:1. Findings in keeping with moderate to severe CHF or volume overload in the appropriate clinical setting (no significant interval change seen); DDX includes (but is not limited to) mild bronchitis and interstitial pneumonia in the appropriate clinical setting.2. Recommend clinical correlation and appropriate follow-up CXR evaluation to ensure interval clearance as clinically warranted.3. Severe COPD/centrilobular emphysema.4. Consider follow-up noncontrast chest CT for further characterization as clinically warranted.Electronically signed by: Karely Nance (Mar 31, 2021 20:45:36)
[2021-03-31] MEDS: MELATONIN PO SCH (21:16)
[2021-04-01] MEDS: VERSED IV PREMIX 100 MG/100 ML IV.SOLN IV PRN ×2 (00:08→08:58)
[2021-04-01] MEDS: PROVENTIL NEB TX 0.083% 2.5MG/ 3ML NEB SCH ×6 (01:38→20:25)
[2021-04-01] MEDS: SOLU-Medrol 40 MG VIAL IVP SCH ×4 (02:26→20:18)
[2021-04-01] MEDS: ASCORBIC ACID INJ MULTI-DOSE VIAL 1,500 MG in NS 100 ML IV 100 ML IV SCH ×3 (02:26→16:03)
[2021-04-01] MEDS: NS 1/2 + KCL 20 MEQ/L 1,000 ML IV SCH ×3 (02:26→18:24)
[2021-04-01 02:43] LABS: BASOPHILS % (AUTO) 0.2 % (0.2-1.0); HEMATOCRIT 28.5 % (36.0-47.0); HEMOGLOBIN 9.5 g/dL (12.0-16.0); LYMPHOCYTES # (AUTO) 0.1 X10^3/uL (1.3-2.9); LYMPHOCYTES % (AUTO) 0.8 % (21.0-51.0); MEAN CORPUSCULAR HEMOGLOBIN 29.3 pg (27.0-34.0); MEAN CORPUSCULAR HGB CONC 33.3 g/dL (33.0-35.0); MEAN CORPUSCULAR VOLUME 87.9 fL (80.0-100.0); MONOCYTES # (AUTO) 0.9 x10^3/uL (0.3-0.8); MONOCYTES % (AUTO) 5.7 % (0.0-13.0); NEUTROPHILS # (AUTO) 15.3 x10^3/uL (2.2-4.8); NEUTROPHILS % (AUTO) 93.3 % (42.0-75.0); PLATELET COUNT 104 X10^3/uL (150.0-450.0); RED BLOOD COUNT 3.24 X10^6/uL (3.5-5.4); RED CELL DISTRIBUTION WIDTH 14.8 % (11.6-16.5); WHITE BLOOD COUNT 16.4 X10^3/uL (3.6-10.0)
[2021-04-01 02:52] LABS: ALANINE AMINOTRANSFERASE 15 Units/L (12-78); ALBUMIN 3.2 g/dL (3.4-5.0); ALKALINE PHOSPHATASE 102 Units/L (46-116); ASPARTATE AMINO TRANSFERASE 17 Units/L (15-37); BLOOD UREA NITROGEN 64 mg/dL (7-18); CARBON DIOXIDE 25.6 mmol/L (21-32); COR CA(FOR HYPOALB) 7.6 mg/dL (8.5-10.1); COR NA(FOR HYPERGLY) 149 mmol/L (136-145); CREATININE 0.81 mg/dL (0.55-1.02); SODIUM 148 mmol/L (136-145); eGFR NON BLACK RACES > 60 (>60)
[2021-04-01 03:05] LABS: CHLORIDE 115 mmol/L (98-107)
[2021-04-01 03:13] LABS: BAND NEUTROPHILS % 3 % (0-10); PLATELET MORPHOLOGY COMMENT NORMAL (NORMAL)
[2021-04-01 05:10] LABS: ABG BASE EXCESS -6.9 mmol/L (-2.0-2.0); ABG HCO3 23.1 mmol/L (22-26)
[2021-04-01] MEDS: MERREM VIAL 500 MG in NS 100 ML IV + SPIKE MINIBAG* 100 ML IV SCH ×3 (06:00→22:00)
[2021-04-01 07:29] LABS: ABG HCO3 20.9 mmol/L (22-26)
[2021-04-01] MEDS: DIPRIVAN PREMIX 1 GRAM IV 1,000 MG/100 ML VIAL IV PRN ×2 (07:53→20:54)
[2021-04-01] MEDS ORDERED: NS 500 ML IV 0 ML IV ONE (08:20)
[2021-04-01] MEDS ORDERED: LR 1,000 ML IV 500 ML IV ONE (08:22)
[2021-04-01] MEDS: ACTOS PO SCH (08:59)
[2021-04-01] MEDS: ALBUMIN HUMAN 25%- 100 ML 100 ML IV SCH ×2 (08:59→20:47)
[2021-04-01] MEDS: PULMICORT NEB TX 0.5 MG NEB SCH ×2 (09:00→20:25)
[2021-04-01] MEDS: VORICONAZOLE 200 MG in NS 50 ML IV + SPIKE MINIBAG* 50 ML IV SCH ×2 (09:00→22:00)
[2021-04-01] MEDS: VITAMIN A PO SCH (09:00)
[2021-04-01] MEDS: THIAMINE HCL INJ IVP SCH ×2 (09:00→20:18)
[2021-04-01] MEDS: ZITHROMAX INJ 500 MG VIAL 500 MG in NS 250 ML IV 250 ML IV SCH (09:00)
[2021-04-01] MEDS: PROTONIX INJ 40 MG VIAL IVP SCH ×2 (09:01→20:18)
[2021-04-01] MEDS: VITAMIN D3 125 mcg (5,000 UNITS) PO SCH (09:01)
[2021-04-01] MEDS: CYTOTEC PO SCH ×4 (09:02→22:11)
[2021-04-01] MEDS: IVERMECTIN PO SCH (09:03)
[2021-04-01] MEDS: FLUVOXAMINE MALEATE PO SCH ×2 (09:03→22:11)
[2021-04-01] MEDS: LOVENOX INJ 60 MG SYR SC SCH (09:03)
[2021-04-01] MEDS: LIPITOR TAB 80 MG PO SCH (09:03)
[2021-04-01] MEDS: DOPAMINE IV PREMIX 400 MG/250 ML 400 MG/250 ML BAG IV PRN ×3 (10:22→23:23)
--- NOTE | 2021-04-01 11:45 | PCM.PROG ---
Progress Note Progress Note for Day of Date of Exam: 04/01/21 Subjective Subjective: Pt is a 60-year-old female admitted for COVID-19 pneumonia, Acute Respiratory Failure, and pulmonary embolism. She is currently requiring mechanical ventilation. Has NGT. Pt's condition and respiratory status deteriorated overnight. She became hypotensive and required Dopamine gtt. She is currently in prone position. Ventilation settings: SIMV, Rate 32, TV 450, PEEP 18, FiO2 100%. Labs/imaging: Wbc 16.4, Hgb 9.5, Plt 104, Na 148, K 4.7, Creatinine 0.81, Glucose 161, ABG was obtained this morning that revealed: pH 7.22, pCO2 51, pO2 87, HCO3 20, O2sat 94%, on FiO2 100%. CXR pending this morning. She did receive IV Lasix 60mg overnight for pulmonary edema. Will change IVF to KVO. Continue Solumedrol 40mg q6h, scheduled Bronchodilators, Antibiotics: Voriconazole and Azithromycin, immune supporting supplements, supplemental O2, SSI, I/S. Respiratory therapy consult. RT has suctioned moderate amount of blood, will hold lovenox at this time. Wean FiO2 as tolerated. Otherwise continue with current treatment plan. Will continue to closely monitor and follow up labs/imaging. Critical care time spent 30-74 minutes in clinical assessment, reviewing labs/imaging, decision making, and documentation. Past Medical Family Social History Past Med/Fam/Surg Hx: No changes since H&P Allergies: Allergies acetaminophen [From Darvocet-N] Allergy (Verified 12/25/18 18:39) levofloxacin [From Levaquin] Allergy (Verified 03/12/21 03:56) propoxyphene [From Darvocet-N] Allergy (Verified 12/25/18 18:39) tetracycline Allergy (Verified 12/17/20 18:24) umeclidinium [From Anoro Ellipta] Allergy (Verified 12/17/20 18:24) vilanterol [From Anoro Ellipta] Allergy (Verified 12/17/20 18:24) Review of Systems ROS: Changes notes (describe) Vital Signs and I&O's Vital Signs: Temperature 97.6 F Pulse Rate [Right Brachial] 81 Pulse Rate 78 Respiratory Rate 0 Blood Pressure [Left Arm] 117/58 Blood Pressure 82/50 O2 Sat by Pulse Oximetry 90 Intake and Output: Intake & Output 03/29/21 03/30/21 03/31/21 04/01/21 23:59 23:59 23:59 23:59 Intake Total 7887 / 7986 6770 / 6770 1940 / 1940 1519.65 / 1519.65 Output Total 2275 / 2275 2625 / 2625 3970 / 3970 450 / 450 Balance 5612 / 5711 4145 / 4145 -2029 / -2029 1069.65 / 1069.65 Physical Exam Oriented: Other (Mechanical ventilation) Eyes: Normal Nose: Normal Respiratory: Diminished, Rales and Rhonchi : Normal Auscultation: Bowel Sounds: Normal Tenderness: Normal Skin: Normal Musculoskeletal: Normal Psychiatric: Other Speech Pattern: Artificially Ventilated Laboratory and Diagnostics Result Diagrams: 04/01/21 02:17 04/01/21 02:17 Labs: 03/21/21 03:30 Sputum - Expectorated Sputum Sputum Culture - Final Chryseom Luteola/Flavim Oryzi 03/21/21 03:30 Sputum - Expectorated Sputum - Final 03/23/21 00:49 Sputum - Endotracheal Wash Sputum Culture - Final 03/23/21 00:49 Sputum - Endotracheal Wash - Final 03/20/21 20:45 Urine,Clean Catch Urine Culture - Final Laboratory WBC 16.4 X10^3/uL (3.6-10.0) H 04/01/21 02:17 RBC 3.24 X10^6/uL (3.5-5.4) L 04/01/21 02:17 Hgb 9.5 g/dL (12.0-16.0) L 04/01/21 02:17 Hct 28.5 % (36.0-47.0) L 04/01/21 02:17 MCV 87.9 fL (80.0-100.0) 04/01/21 02:17 MCH 29.3 pg (27.0-34.0) 04/01/21 02:17 MCHC 33.3 g/dL (33.0-35.0) 04/01/21 02:17 RDW 14.8 % (11.6-16.5) 04/01/21 02:17 Plt Count 104 X10^3/uL (150.0-450.0) L 04/01/21 02:17 Plt Count Comment Decreased (ADEQUATE) A 04/01/21 02:17 MPV 10.0 fL (7.4-11.0) 04/01/21 02:17 Neut % (Auto) 93.3 % (42.0-75.0) H 04/01/21 02:17 Lymph % (Auto) 0.8 % (21.0-51.0) L 04/01/21 02:17 [place] % (Auto) 5.7 % (0.0-13.0) 04/01/21 02:17 Eos % (Auto) 0.0 % (0.9-2.9) L 04/01/21 02:17 Baso % (Auto) 0.2 % (0.2-1.0) 04/01/21 02:17 Neut # (Auto) 15.3 x10^3/uL (2.2-4.8) H 04/01/21 02:17 Lymph # (Auto) 0.1 X10^3/uL (1.3-2.9) L 04/01/21 02:17 [place] # (Auto) 0.9 x10^3/uL (0.3-0.8) H 04/01/21 02:17 Eos # (Auto) 0.0 x10^3/uL (0.0-0.2) 04/01/21 02:17 Baso # (Auto) 0.0 X10^3/uL (0.0-0.1) 04/01/21 02:17 Absolute Nucleated RBC 0.1 /100WBC 04/01/21 02:17 Total Counted 100 04/01/21 02:17 Neutrophils % (Manual) 89 % (39-76) H 04/01/21 02:17 Band Neutrophils % 3 % (0-10) 04/01/21 02:17 Lymphocytes % (Manual) 4 % (13-43) L 04/01/21 02:17 Monocytes % (Manual) 4 % (4-9) 04/01/21 02:17 Plt Morphology Comment Normal (NORMAL) 04/01/21 02:17 RBC Morphology Normal (NORMAL) 04/01/21 02:17 PT 13.4 SECONDS (11.8-14.3) 03/20/21 19:52 INR Target Range - 03/20/21 19:52 INR 1.07 (0.8-1.3) 03/20/21 19:52 APTT 24.8 SECONDS (22.9-36.5) 03/20/21 19:52 PTT Comment - 03/20/21 19:52 D-Dimer 3.42 ug/ml (0.0-0.57) H* 03/20/21 19:52 Sample Site A-line 04/01/21 07:22 ABG pH 7.220 (7.35-7.45) L 04/01/21 07:22 ABG pCO2 51.0 mmHg (35.0-45.0) H* 04/01/21 07:22 ABG pO2 87.0 mmHg (80.0-100.0) 04/01/21 07:22 ABG HCO3 20.9 mmol/L (22-26) L 04/01/21 07:22 ABG O2 Saturation 94.0 % (90-100) 04/01/21 07:22 ABG Base Excess -7.0 mmol/L (-2.0-2.0) L 04/01/21 07:22 Laz Test N/a 04/01/21 07:22 A-a Gradient 562.0 mmHg 04/01/21 07:22 FiO2 100.0 04/01/21 07:22 Blood Gas Comments Pt shayy well elj 04/01/21 07:22 Sodium 148 mmol/L (136-145) H 04/01/21 02:17 Corrected Sodium 149 mmol/L (136-145) H 04/01/21 02:17 Potassium 4.7 mmol/L (3.5-5.1) 04/01/21 02:17 Chloride 115 mmol/L (98-107) H* 04/01/21 02:17 Carbon Dioxide 25.6 mmol/L (21-32) 04/01/21 02:17 BUN 64 mg/dL (7-18) H 04/01/21 02:17 Creatinine 0.81 mg/dL (0.55-1.02) 04/01/21 02:17 Est GFR (MDRD) Af Amer > 60 (>60) 04/01/21 02:17 Est GFR (MDRD) Non-Af > 60 (>60) 04/01/21 02:17 Glucose 161 mg/dL (65-99) H 04/01/21 02:17 Calculated Osmolality Cancelled 03/31/21 15:37 Calcium 7.0 mg/dL (8.5-10.1) L 04/01/21 02:17 Corrected Calcium 7.6 mg/dL (8.5-10.1) L 04/01/21 02:17 Magnesium 2.8 mg/dL (1.7-2.9) 03/26/21 04:35 Total Bilirubin 0.30 mg/dL (0.2-1.0) 04/01/21 02:17 AST 17 Units/L (15-37) 04/01/21 02:17 ALT 15 Units/L (12-78) 04/01/21 02:17 Alkaline Phosphatase 102 Units/L (46-116) 04/01/21 02:17 Creatine Kinase 40 Units/L (26-192) 03/20/21 19:52 CK-MB (CK-2) 2.4 ng/mL (0-4.0) 03/20/21 19:52 CK/CKMB % Calc 6.0 % (<4) 03/20/21 19:52 Troponin I < 0.02 ng/mL (0-1.5) 03/20/21 19:52 C-Reactive Protein 3.60 mg/L (0-3.0) H 03/30/21 05:45 B-Natriuretic Peptide 48.0 pg/mL (0-79) 03/20/21 19:52 Total Protein 5.0 g/dL (6.4-8.2) L 04/01/21 02:17 Albumin 3.2 g/dL (3.4-5.0) L 04/01/21 02:17 Globulin 1.8 g/dL (2.5-4.5) L 04/01/21 02:17 Albumin/Globulin Ratio 1.8 Ratio (1.1-2.1) 04/01/21 02:17 Specimen Type Catherized urine 03/20/21 20:45 Urine Color Yellow (YELLOW) 03/20/21 20:45 Urine Appearance Clear (CLEAR) 03/20/21 20:45 Urine pH 6.0 (5.0 - 8.0) 03/20/21 20:45 Ur Specific [place] 1.010 (1.000-1.030) 03/20/21 20:45 Urine Protein 2+ (NEGATIVE) 03/20/21 20:45 Urine Glucose (UA) Negative (NEGATIVE) 03/20/21 20:45 Urine Ketones Negative (NEGATIVE) 03/20/21 20:45 Urine Occult Blood 1+ (NEGATIVE) 03/20/21 20:45 Urine Nitrite Negative (NEGATIVE) 03/20/21 20:45 Urine Bilirubin Negative (NEGATIVE) 03/20/21 20:45 Urine Urobilinogen Normal (NORMAL) 03/20/21 20:45 Ur Leukocyte Esterase Negative (NEGATIVE) 03/20/21 20:45 Urine RBC 5-10 /HPF (0-3) A 03/20/21 20:45 Urine WBC 3-5 /HPF (0-5) 03/20/21 20:45 Ur Squamous Epith Cells Rare /HPF (NEGATIVE) 03/20/21 20:45 Urine Bacteria Trace /HPF (NEGATIVE) 03/20/21 20:45 Ur Culture Indicated? No/not indicated 03/20/21 20:45 Stool Description 40g dk green mucoid 03/31/21 14:24 Stl Occult Blood (IFOB) Positive (NEGATIVE) A 03/31/21 14:24 SARS-CoV-2 (PCR) Positive (NEGATIVE) A 03/21/21 00:07 Influenza Type A (PCR) Negative (NEGATIVE) 03/21/21 00:07 Influenza Type B (PCR) Negative (NEGATIVE) 03/21/21 00:07 RSV (PCR) Negative (NEGATIVE) 03/21/21 00:07 Blood Type B POSITIVE 03/30/21 07:23 Antibody Screen Negative 03/30/21 07:23 Crossmatch See Detail 03/30/21 07:23 Plan (1) Pneumonia due to COVID-19 virus: Status: Acute Plan: Mechanical ventilation (2) Acute respiratory failure: Status: Acute
[2021-04-01 17:22] LABS: HEMOGLOBIN 8.3 g/dL (12.0-16.0)
[2021-04-01 17:24] LABS: HEMATOCRIT 25.1 % (36.0-47.0)
[2021-04-01] MEDS ORDERED: ALBUMIN HUMAN 25%- 100 ML 100 ML ONE (19:56)
[2021-04-01] MEDS ORDERED: NS 50 ML IV 50 ML IV ONE (20:59)
[2021-04-01] MEDS: MELATONIN PO SCH (22:12)
[2021-04-02] MEDS: PROVENTIL NEB TX 0.083% 2.5MG/ 3ML NEB SCH ×6 (01:45→21:18)
[2021-04-02] MEDS: VERSED IV PREMIX 100 MG/100 ML IV.SOLN IV PRN ×3 (02:44→20:46)
[2021-04-02] MEDS: NS 1/2 + KCL 20 MEQ/L 1,000 ML IV SCH ×4 (03:16→18:17)
[2021-04-02] MEDS: SOLU-Medrol 40 MG VIAL IVP SCH ×4 (03:16→20:52)
[2021-04-02] MEDS: MERREM VIAL 500 MG in NS 100 ML IV + SPIKE MINIBAG* 100 ML IV SCH ×3 (05:19→21:01)
[2021-04-02] MEDS: DIPRIVAN PREMIX 1 GRAM IV 1,000 MG/100 ML VIAL IV PRN ×2 (05:53→18:15)
[2021-04-02 06:30] LABS: BASOPHILS # (AUTO) 0.1 X10^3/uL (0.0-0.1); BASOPHILS % (AUTO) 0.6 % (0.2-1.0); EOSINOPHILS # (AUTO) 0.1 x10^3/uL (0.0-0.2); EOSINOPHILS % (AUTO) 0.5 % (0.9-2.9); HEMATOCRIT 22.5 % (36.0-47.0); HEMOGLOBIN 7.7 g/dL (12.0-16.0); LYMPHOCYTES # (AUTO) 0.1 X10^3/uL (1.3-2.9); LYMPHOCYTES % (AUTO) 1.4 % (21.0-51.0); MEAN CORPUSCULAR HEMOGLOBIN 29.3 pg (27.0-34.0); MEAN CORPUSCULAR HGB CONC 34.4 g/dL (33.0-35.0); MEAN CORPUSCULAR VOLUME 85.1 fL (80.0-100.0); MEAN PLATELET VOLUME 10.8 fL (7.4-11.0); MONOCYTES # (AUTO) 0.4 x10^3/uL (0.3-0.8); MONOCYTES % (AUTO) 3.6 % (0.0-13.0); NEUTROPHILS # (AUTO) 10.3 x10^3/uL (2.2-4.8); NEUTROPHILS % (AUTO) 93.9 % (42.0-75.0); PLATELET COUNT 90 X10^3/uL (150.0-450.0); RED BLOOD COUNT 2.64 X10^6/uL (3.5-5.4); RED CELL DISTRIBUTION WIDTH 15.2 % (11.6-16.5); WHITE BLOOD COUNT 10.9 X10^3/uL (3.6-10.0)
[2021-04-02 06:32] LABS: ALANINE AMINOTRANSFERASE 18 Units/L (12-78); ALBUMIN 3.2 g/dL (3.4-5.0); ALKALINE PHOSPHATASE 98 Units/L (46-116); ASPARTATE AMINO TRANSFERASE 18 Units/L (15-37); BLOOD UREA NITROGEN 69 mg/dL (7-18); CALCIUM 7.7 mg/dL (8.5-10.1); CARBON DIOXIDE 21.6 mmol/L (21-32); COR CA(FOR HYPOALB) 8.3 mg/dL (8.5-10.1); COR NA(FOR HYPERGLY) 150 mmol/L (136-145); CREATININE 0.83 mg/dL (0.55-1.02); SODIUM 149 mmol/L (136-145); TOTAL PROTEIN 4.9 g/dL (6.4-8.2); eGFR NON BLACK RACES > 60 (>60)
[2021-04-02 06:34] LABS: CHLORIDE 117 mmol/L (98-107)
--- NOTE | 2021-04-02 07:10 | RAD ---
CHEST, 1 VIEWHISTORY: PNEUMONIAStudy: Single view of the chest.Comparison:April 01, 2021Findings:The cardiomediastinal silhouette is normal. No change in the appearance of extensive bibasilar interstitial airspace opacities. No change in positioning of cardiopulmonary support devices. Osseous structures demonstrate no acute abnormality.IMPRESSION:1. No change from prior.Electronically signed by: SUE QUINN (Apr 02, 2021 07:09:26)
[2021-04-02 07:15] LABS: BAND NEUTROPHILS % 4 % (0-10); PLATELET MORPHOLOGY COMMENT NORMAL (NORMAL)
[2021-04-02] MEDS: ZITHROMAX INJ 500 MG VIAL 500 MG in NS 250 ML IV 250 ML IV SCH (08:30)
[2021-04-02] MEDS: ALBUMIN HUMAN 25%- 100 ML 100 ML IV SCH ×2 (08:31→20:48)
[2021-04-02] MEDS: ACTOS PO SCH (08:32)
[2021-04-02] MEDS: VITAMIN D3 125 mcg (5,000 UNITS) PO SCH (08:32)
[2021-04-02] MEDS: PROTONIX INJ 40 MG VIAL IVP SCH ×2 (08:32→20:50)
[2021-04-02] MEDS: THIAMINE HCL INJ IVP SCH ×2 (08:32→20:53)
[2021-04-02] MEDS: IVERMECTIN PO SCH (08:33)
[2021-04-02] MEDS: CYTOTEC PO SCH ×4 (08:33→20:52)
[2021-04-02] MEDS: FLUVOXAMINE MALEATE PO SCH ×2 (08:33→20:52)
[2021-04-02] MEDS: VITAMIN A PO SCH (08:34)
[2021-04-02] MEDS: LIPITOR TAB 80 MG PO SCH (08:34)
[2021-04-02] MEDS: PULMICORT NEB TX 0.5 MG NEB SCH ×2 (09:10→21:18)
[2021-04-02] MEDS: VORICONAZOLE 200 MG in NS 50 ML IV + SPIKE MINIBAG* 50 ML IV SCH ×2 (10:09→20:49)
[2021-04-02] MEDS: DOPAMINE IV PREMIX 400 MG/250 ML 400 MG/250 ML BAG IV PRN ×2 (10:15→18:11)
--- NOTE | 2021-04-02 11:04 | PCM.PROG ---
Progress Note Progress Note for Day of Date of Exam: 04/02/21 Subjective Subjective: Pt is a 60-year-old female admitted for COVID-19 pneumonia, Acute Respiratory Failure, and pulmonary embolism. She is currently requiring mechanical ventilation. Has NGT. She continues to require Dopamine gtt to keep MAP greater than 65. She is currently in supine position. ABG was obtained this morning that revealed: pH 7.28, pCO2 49, pO2 154, HCO3 23, O2sat 99%, on FiO2 100%. Ventilation settings were adjusted based on ABG: SIMV, Rate 32, TV 450, PEEP 15, FiO2 100%. Labs/imaging: Wbc 10.9, Hgb 7.7, Plt 90, Na 149, K 4.7, Creatinine 0.83, Glucose 159, CXR: no change from prior. Continue treatments: IVF@KVO, Solumedrol 40mg q6h, scheduled Bronchodilators, Antibiotics: Voriconazole and Azithromycin, immune supporting supplements, supplemental O2, SSI, I/S. Respiratory therapy consult. Holding lovenox at this time due to anemia and blood loss. Will transfuse 1 unit packed red blood cells. Wean FiO2 as tolerated. Otherwise continue with current treatment plan. Will continue to closely monitor and follow up labs/imaging. Critical care time spent 30-74 minutes in clinical assessment, reviewing labs/imaging, decision making, and documentation. Past Medical Family Social History Past Med/Fam/Surg Hx: No changes since H&P Allergies: Allergies acetaminophen [From Darvocet-N] Allergy (Verified 12/25/18 18:39) levofloxacin [From Levaquin] Allergy (Verified 03/12/21 03:56) propoxyphene [From Darvocet-N] Allergy (Verified 12/25/18 18:39) tetracycline Allergy (Verified 12/17/20 18:24) umeclidinium [From Anoro Ellipta] Allergy (Verified 12/17/20 18:24) vilanterol [From Anoro Ellipta] Allergy (Verified 12/17/20 18:24) Review of Systems ROS: Changes notes (describe) Vital Signs and I&O's Vital Signs: Temperature 97.7 F Pulse Rate [Right Brachial] 81 Pulse Rate 74 Respiratory Rate 32 Blood Pressure [Left Arm] 117/58 Blood Pressure 117/75 O2 Sat by Pulse Oximetry 98 Intake and Output: Intake & Output 12/02/21 12/03/21 12/04/21 12/05/21 23:59 23:59 23:59 23:59 Intake Total 6770 / 6770 1940 / 1940 4068.00 / 4068.00 3400 / 3400 Output Total 2625 / 2625 3970 / 3970 3100 / 3100 1000 / 1000 Balance 4145 / 4145 -2030 / -2030 968.00 / 968.00 2400 / 2400 Physical Exam Oriented: Other (Mechanical ventilation) Eyes: Normal Nose: Normal Respiratory: Diminished, Rales and Rhonchi Cardiovascular: Normal : Normal Auscultation: Bowel Sounds: Normal Tenderness: Normal Skin: Normal Musculoskeletal: Normal Psychiatric: Other Speech Pattern: Artificially Ventilated Laboratory and Diagnostics Result Diagrams: 04/02/21 06:00 04/02/21 06:00 Labs: 03/21/21 03:30 Sputum - Expectorated Sputum Sputum Culture - Final Chryseom Luteola/Flavim Oryzi 03/21/21 03:30 Sputum - Expectorated Sputum - Final 03/23/21 00:49 Sputum - Endotracheal Wash Sputum Culture - Final 03/23/21 00:49 Sputum - Endotracheal Wash - Final 03/20/21 20:45 Urine,Clean Catch Urine Culture - Final Laboratory WBC 10.9 X10^3/uL (3.6-10.0) H 04/02/21 06:00 RBC 2.64 X10^6/uL (3.5-5.4) L 04/02/21 06:00 Hgb 7.7 g/dL (12.0-16.0) L 04/02/21 06:00 Hct 22.5 % (36.0-47.0) L 04/02/21 06:00 MCV 85.1 fL (80.0-100.0) 04/02/21 06:00 MCH 29.3 pg (27.0-34.0) 04/02/21 06:00 MCHC 34.4 g/dL (33.0-35.0) 04/02/21 06:00 RDW 15.2 % (11.6-16.5) 04/02/21 06:00 Plt Count 90 X10^3/uL (150.0-450.0) L 04/02/21 06:00 Plt Count Comment Decreased (ADEQUATE) A 04/02/21 06:00 MPV 10.8 fL (7.4-11.0) 04/02/21 06:00 Neut % (Auto) 93.9 % (42.0-75.0) H 04/02/21 06:00 Lymph % (Auto) 1.4 % (21.0-51.0) L 04/02/21 06:00 [place] % (Auto) 3.6 % (0.0-13.0) 04/02/21 06:00 Eos % (Auto) 0.5 % (0.9-2.9) L 04/02/21 06:00 Baso % (Auto) 0.6 % (0.2-1.0) 04/02/21 06:00 Neut # (Auto) 10.3 x10^3/uL (2.2-4.8) H 04/02/21 06:00 Lymph # (Auto) 0.1 X10^3/uL (1.3-2.9) L 04/02/21 06:00 Cannon # (Auto) 0.4 x10^3/uL (0.3-0.8) 04/02/21 06:00 Eos # (Auto) 0.1 x10^3/uL (0.0-0.2) 04/02/21 06:00 Baso # (Auto) 0.1 X10^3/uL (0.0-0.1) 04/02/21 06:00 Absolute Nucleated RBC 0.1 /100WBC 04/02/21 06:00 Total Counted 100 04/02/21 06:00 Neutrophils % (Manual) 90 % (39-76) H 04/02/21 06:00 Band Neutrophils % 4 % (0-10) 04/02/21 06:00 Lymphocytes % (Manual) 1 % (13-43) L 04/02/21 06:00 Monocytes % (Manual) 5 % (4-9) 04/02/21 06:00 Plt Morphology Comment Normal (NORMAL) 04/02/21 06:00 RBC Morphology Normal (NORMAL) 04/02/21 06:00 PT 13.4 SECONDS (11.8-14.3) 03/20/21 19:52 INR Target Range - 03/20/21 19:52 INR 1.07 (0.8-1.3) 03/20/21 19:52 APTT 24.8 SECONDS (22.9-36.5) 03/20/21 19:52 PTT Comment - 03/20/21 19:52 D-Dimer 3.42 ug/ml (0.0-0.57) H* 03/20/21 19:52 Sample Site [place] 04/02/21 05:45 ABG pH 7.280 (7.35-7.45) L 04/02/21 05:45 ABG pCO2 49.0 mmHg (35.0-45.0) H 04/02/21 05:45 ABG pO2 154.0 mmHg (80.0-100.0) H 04/02/21 05:45 ABG HCO3 23.0 mmol/L (22-26) 04/02/21 05:45 ABG O2 Saturation 99.0 % (90-100) 04/02/21 05:45 ABG Base Excess -4.0 mmol/L (-2.0-2.0) L 04/02/21 05:45 Laz Test Na 04/02/21 05:45 A-a Gradient 498.0 mmHg 04/02/21 05:45 FiO2 100.0 04/02/21 05:45 Blood Gas Comments Tino well ms 04/02/21 05:45 Sodium 149 mmol/L (136-145) H 04/02/21 06:00 Corrected Sodium 150 mmol/L (136-145) H 04/02/21 06:00 Potassium 4.7 mmol/L (3.5-5.1) 04/02/21 06:00 Chloride 117 mmol/L (98-107) H* 04/02/21 06:00 Carbon Dioxide 21.6 mmol/L (21-32) 04/02/21 06:00 BUN 69 mg/dL (7-18) H 04/02/21 06:00 Creatinine 0.83 mg/dL (0.55-1.02) 04/02/21 06:00 Est GFR (MDRD) Af Amer > 60 (>60) 04/02/21 06:00 Est GFR (MDRD) Non-Af > 60 (>60) 04/02/21 06:00 Glucose 159 mg/dL (65-99) H 04/02/21 06:00 Calculated Osmolality Cancelled 03/31/21 15:37 Calcium 7.7 mg/dL (8.5-10.1) L 04/02/21 06:00 Corrected Calcium 8.3 mg/dL (8.5-10.1) L 04/02/21 06:00 Magnesium 2.8 mg/dL (1.7-2.9) 03/26/21 04:35 Total Bilirubin 0.40 mg/dL (0.2-1.0) 04/02/21 06:00 AST 18 Units/L (15-37) 04/02/21 06:00 ALT 18 Units/L (12-78) 04/02/21 06:00 Alkaline Phosphatase 98 Units/L (46-116) 04/02/21 06:00 Creatine Kinase 40 Units/L (26-192) 03/20/21 19:52 CK-MB (CK-2) 2.4 ng/mL (0-4.0) 03/20/21 19:52 CK/CKMB % Calc 6.0 % (<4) 03/20/21 19:52 Troponin I < 0.02 ng/mL (0-1.5) 03/20/21 19:52 C-Reactive Protein 3.60 mg/L (0-3.0) H 03/30/21 05:45 B-Natriuretic Peptide 48.0 pg/mL (0-79) 03/20/21 19:52 Total Protein 4.9 g/dL (6.4-8.2) L 04/02/21 06:00 Albumin 3.2 g/dL (3.4-5.0) L 04/02/21 06:00 Globulin 1.7 g/dL (2.5-4.5) L 04/02/21 06:00 Albumin/Globulin Ratio 1.9 Ratio (1.1-2.1) 04/02/21 06:00 Specimen Type Catherized urine 03/20/21 20:45 Urine Color Yellow (YELLOW) 03/20/21 20:45 Urine Appearance Clear (CLEAR) 03/20/21 20:45 Urine pH 6.0 (5.0 - 8.0) 03/20/21 20:45 Ur Specific [place] 1.010 (1.000-1.030) 03/20/21 20:45 Urine Protein 2+ (NEGATIVE) 03/20/21 20:45 Urine Glucose (UA) Negative (NEGATIVE) 03/20/21 20:45 Urine Ketones Negative (NEGATIVE) 03/20/21 20:45 Urine Occult Blood 1+ (NEGATIVE) 03/20/21 20:45 Urine Nitrite Negative (NEGATIVE) 03/20/21 20:45 Urine Bilirubin Negative (NEGATIVE) 03/20/21 20:45 Urine Urobilinogen Normal (NORMAL) 03/20/21 20:45 Ur Leukocyte Esterase Negative (NEGATIVE) 03/20/21 20:45 Urine RBC 5-10 /HPF (0-3) A 03/20/21 20:45 Urine WBC 3-5 /HPF (0-5) 03/20/21 20:45 Ur Squamous Epith Cells Rare /HPF (NEGATIVE) 03/20/21 20:45 Urine Bacteria Trace /HPF (NEGATIVE) 03/20/21 20:45 Ur Culture Indicated? No/not indicated 03/20/21 20:45 Stool Description 40g dk green mucoid 03/31/21 14:24 Stl Occult Blood (IFOB) Positive (NEGATIVE) A 03/31/21 14:24 SARS-CoV-2 (PCR) Positive (NEGATIVE) A 03/21/21 00:07 Influenza Type A (PCR) Negative (NEGATIVE) 03/21/21 00:07 Influenza Type B (PCR) Negative (NEGATIVE) 03/21/21 00:07 RSV (PCR) Negative (NEGATIVE) 03/21/21 00:07 Blood Type B POSITIVE 03/30/21 07:23 Antibody Screen Negative 03/30/21 07:23 Crossmatch See Detail 03/30/21 07:23 Plan (1) Pneumonia due to COVID-19 virus: Status: Acute Plan: Mechanical ventilation (2) Acute respiratory failure: Status: Acute
[2021-04-02] MEDS: ASCORBIC ACID INJ MULTI-DOSE VIAL 1,500 MG in NS 100 ML IV 100 ML IV SCH ×2 (17:07→20:49)
[2021-04-02 17:09] LABS: HEMATOCRIT 22.3 % (36.0-47.0); HEMOGLOBIN 7.5 g/dL (12.0-16.0)
[2021-04-02] MEDS: MELATONIN PO SCH (20:50)
[2021-04-02 23:53] LABS: HEMATOCRIT 29.2 % (36.0-47.0)
[2021-04-02 23:57] LABS: HEMOGLOBIN 10.1 g/dL (12.0-16.0)
[2021-04-03] MEDS: PROVENTIL NEB TX 0.083% 2.5MG/ 3ML NEB SCH ×6 (00:55→21:30)
[2021-04-03] MEDS: NS 1/2 + KCL 20 MEQ/L 1,000 ML IV SCH ×3 (01:07→18:08)
[2021-04-03] MEDS: SOLU-Medrol 40 MG VIAL IVP SCH ×4 (04:11→20:35)
[2021-04-03] MEDS: ASCORBIC ACID INJ MULTI-DOSE VIAL 1,500 MG in NS 100 ML IV 100 ML IV SCH ×4 (04:11→20:28)
[2021-04-03] MEDS: MERREM VIAL 500 MG in NS 100 ML IV + SPIKE MINIBAG* 100 ML IV SCH ×3 (05:02→21:29)
[2021-04-03] MEDS: VERSED IV PREMIX 100 MG/100 ML IV.SOLN IV PRN ×3 (05:03→22:05)
[2021-04-03 05:11] LABS: BASOPHILS # (AUTO) 0.1 X10^3/uL (0.0-0.1); BASOPHILS % (AUTO) 0.9 % (0.2-1.0); HEMATOCRIT 25.3 % (36.0-47.0); HEMOGLOBIN 8.7 g/dL (12.0-16.0); LYMPHOCYTES # (AUTO) 0.1 X10^3/uL (1.3-2.9); LYMPHOCYTES % (AUTO) 1.2 % (21.0-51.0); MEAN CORPUSCULAR HEMOGLOBIN 29.3 pg (27.0-34.0); MEAN CORPUSCULAR HGB CONC 34.6 g/dL (33.0-35.0); MEAN CORPUSCULAR VOLUME 84.7 fL (80.0-100.0); MEAN PLATELET VOLUME 10.8 fL (7.4-11.0); MONOCYTES # (AUTO) 0.3 x10^3/uL (0.3-0.8); MONOCYTES % (AUTO) 4.2 % (0.0-13.0); NEUTROPHILS # (AUTO) 7.4 x10^3/uL (2.2-4.8); NEUTROPHILS % (AUTO) 93.7 % (42.0-75.0); PLATELET COUNT 72 X10^3/uL (150.0-450.0); RED BLOOD COUNT 2.98 X10^6/uL (3.5-5.4); WHITE BLOOD COUNT 7.9 X10^3/uL (3.6-10.0)
[2021-04-03 05:13] LABS: ABG BASE EXCESS -4.6 mmol/L (-2.0-2.0); ABG HCO3 22.5 mmol/L (22-26)
[2021-04-03 05:18] LABS: ALANINE AMINOTRANSFERASE 16 Units/L (12-78); ALBUMIN 3.6 g/dL (3.4-5.0); ALKALINE PHOSPHATASE 95 Units/L (46-116); ASPARTATE AMINO TRANSFERASE 16 Units/L (15-37); BLOOD UREA NITROGEN 69 mg/dL (7-18); CALCIUM 7.9 mg/dL (8.5-10.1); CARBON DIOXIDE 23.3 mmol/L (21-32); COR NA(FOR HYPERGLY) 152 mmol/L (136-145); CREATININE 0.83 mg/dL (0.55-1.02); TOTAL PROTEIN 5.3 g/dL (6.4-8.2); eGFR NON BLACK RACES > 60 (>60)
[2021-04-03 05:28] LABS: CHLORIDE 117 mmol/L (98-107); SODIUM 151 mmol/L (136-145)
[2021-04-03 05:39] LABS: HYPOCHROMASIA SLIGHT; MICROCYTOSIS SLIGHT; PLATELET MORPHOLOGY COMMENT NORMAL (NORMAL)
[2021-04-03] MEDS: DIPRIVAN PREMIX 1 GRAM IV 1,000 MG/100 ML VIAL IV PRN ×2 (07:02→16:28)
[2021-04-03] MEDS: ALBUMIN HUMAN 25%- 100 ML 100 ML IV SCH ×2 (08:12→20:29)
[2021-04-03] MEDS: CYTOTEC PO SCH ×4 (08:14→20:35)
[2021-04-03] MEDS: ACTOS PO SCH (08:14)
[2021-04-03] MEDS: LIPITOR TAB 80 MG PO SCH (08:15)
[2021-04-03] MEDS: IVERMECTIN PO SCH (08:15)
[2021-04-03] MEDS: FLUVOXAMINE MALEATE PO SCH ×2 (08:15→20:35)
[2021-04-03] MEDS: PROTONIX INJ 40 MG VIAL IVP SCH ×2 (08:16→20:35)
[2021-04-03] MEDS: THIAMINE HCL INJ IVP SCH ×2 (08:18→20:35)
[2021-04-03] MEDS: VITAMIN A PO SCH (08:19)
[2021-04-03] MEDS: VITAMIN D3 125 mcg (5,000 UNITS) PO SCH (08:19)
[2021-04-03] MEDS: PULMICORT NEB TX 0.5 MG NEB SCH ×2 (08:20→21:30)
[2021-04-03] MEDS: ZITHROMAX INJ 500 MG VIAL 500 MG in NS 250 ML IV 250 ML IV SCH (08:22)
[2021-04-03] MEDS: DOPAMINE IV PREMIX 400 MG/250 ML 400 MG/250 ML BAG IV PRN (08:37)
[2021-04-03] MEDS: LACRI-LUBE S.O.P. AFFEYE PRN (09:00)
[2021-04-03] MEDS: VORICONAZOLE 200 MG in NS 50 ML IV + SPIKE MINIBAG* 50 ML IV SCH ×2 (09:21→20:39)
--- NOTE | 2021-04-03 15:22 | RAD ---
HISTORYRESPIRATORY FAILURE, HYPOXIA, COPD HTN, HYSTERECTOMYSTUDYCHEST, 1 [id number]/05/2021FINDINGSPatient rotated. Stable support apparatus. Stable cardiomediastinal silhouette. Extensive bilateral airspace disease not significantly changed allowing for difference in position other than increasing right apical opacity.. No visible pneumothorax. No acute osseous finding.IMPRESSIONIncreasing right upper lung opacity with otherwise little change in extensive bilateral airspace opacities.Electronically signed by: Darrell Webber (Apr 03, 2021 15:21:31)
--- NOTE | 2021-04-03 15:57 | RAD ---
HISTORYresp failure, hypoxia, RUL PE, COPD exacerbation.brpt is prone, per Dr Vikki lake proneSTUDYCHDEBBIE, 1 [id number]/03/2021FINDINGSThere is less interstitial opacity than previously. A significant amount still remains. The differential diagnosis includes pneumonia or pulmonary edema.The heart size is magnified. Vascular calcifications are present compatible with atherosclerosis.Bones are unremarkable.The endotracheal tube is anatomic in position in the trachea. The enteric tube extends into the upper abdomen. Left subclavian central venous catheter is in the expected location of the superior vena cava. EKG leads are noted.IMPRESSION1. Improved pneumonia or pulmonary edemaElectronically signed by: Tito Oreilly (Apr 03, 2021 15:56:44)
[2021-04-03] MEDS: MELATONIN PO SCH (20:35)
[2021-04-04] MEDS: PROVENTIL NEB TX 0.083% 2.5MG/ 3ML NEB SCH ×6 (00:10→20:50)
[2021-04-04] MEDS: NS 1/2 + KCL 20 MEQ/L 1,000 ML IV SCH ×3 (02:31→18:03)
[2021-04-04] MEDS: ASCORBIC ACID INJ MULTI-DOSE VIAL 1,500 MG in NS 100 ML IV 100 ML IV SCH ×4 (02:32→20:33)
[2021-04-04] MEDS: SOLU-Medrol 40 MG VIAL IVP SCH ×4 (02:32→20:31)
[2021-04-04] MEDS ORDERED: NS 250 ML IV 0 ML IV ONE (02:46)
[2021-04-04] MEDS: NS 500 ML IV 500 ML IV PRN (03:05)
[2021-04-04 04:28] LABS: ABG BASE EXCESS -6.7 mmol/L (-2.0-2.0); ABG HCO3 21.3 mmol/L (22-26)
[2021-04-04] MEDS: MERREM VIAL 500 MG in NS 100 ML IV + SPIKE MINIBAG* 100 ML IV SCH ×3 (05:37→21:07)
[2021-04-04] MEDS: DIPRIVAN PREMIX 1 GRAM IV 1,000 MG/100 ML VIAL IV PRN ×2 (05:38→15:18)
[2021-04-04 07:30] LABS: BASOPHILS # (AUTO) 0.1 X10^3/uL (0.0-0.1); BASOPHILS % (AUTO) 0.4 % (0.2-1.0); HEMATOCRIT 26.7 % (36.0-47.0); HEMOGLOBIN 8.8 g/dL (12.0-16.0); LYMPHOCYTES # (AUTO) 0.1 X10^3/uL (1.3-2.9); LYMPHOCYTES % (AUTO) 0.7 % (21.0-51.0); MEAN CORPUSCULAR HEMOGLOBIN 28.8 pg (27.0-34.0); MEAN CORPUSCULAR HGB CONC 32.9 g/dL (33.0-35.0); MEAN CORPUSCULAR VOLUME 87.5 fL (80.0-100.0); MEAN PLATELET VOLUME 11.3 fL (7.4-11.0); MONOCYTES # (AUTO) 0.4 x10^3/uL (0.3-0.8); MONOCYTES % (AUTO) 2.9 % (0.0-13.0); NEUTROPHILS # (AUTO) 13.3 x10^3/uL (2.2-4.8); PLATELET COUNT 80 X10^3/uL (150.0-450.0); RED BLOOD COUNT 3.05 X10^6/uL (3.5-5.4); RED CELL DISTRIBUTION WIDTH 15.8 % (11.6-16.5); WHITE BLOOD COUNT 13.8 X10^3/uL (3.6-10.0)
[2021-04-04 07:41] LABS: ALANINE AMINOTRANSFERASE 22 Units/L (12-78); ALBUMIN 3.3 g/dL (3.4-5.0); ALKALINE PHOSPHATASE 159 Units/L (46-116); ASPARTATE AMINO TRANSFERASE 21 Units/L (15-37); BLOOD UREA NITROGEN 67 mg/dL (7-18); CALCIUM 7.6 mg/dL (8.5-10.1); CARBON DIOXIDE 22.5 mmol/L (21-32); COR CA(FOR HYPOALB) 8.2 mg/dL (8.5-10.1); COR NA(FOR HYPERGLY) 154 mmol/L (136-145); CREATININE 0.81 mg/dL (0.55-1.02); eGFR NON BLACK RACES > 60 (>60)
[2021-04-04 07:43] LABS: SODIUM 152 mmol/L (136-145)
[2021-04-04 07:44] LABS: CHLORIDE 118 mmol/L (98-107)
[2021-04-04 07:55] LABS: BAND NEUTROPHILS % 2 % (0-10); PLATELET MORPHOLOGY COMMENT NORMAL (NORMAL)
[2021-04-04] MEDS: VERSED IV PREMIX 100 MG/100 ML IV.SOLN IV PRN ×2 (07:57→15:32)
[2021-04-04] MEDS: ALBUMIN HUMAN 25%- 100 ML 100 ML IV SCH ×2 (08:22→20:32)
[2021-04-04] MEDS: ACTOS PO SCH (08:22)
[2021-04-04] MEDS: CYTOTEC PO SCH ×4 (08:23→20:31)
[2021-04-04] MEDS: FLUVOXAMINE MALEATE PO SCH ×2 (08:23→20:32)
[2021-04-04] MEDS: LIPITOR TAB 80 MG PO SCH (08:23)
[2021-04-04] MEDS: PROTONIX INJ 40 MG VIAL IVP SCH ×2 (08:23→20:31)
[2021-04-04] MEDS: VITAMIN D3 125 mcg (5,000 UNITS) PO SCH (08:24)
[2021-04-04] MEDS: THIAMINE HCL INJ IVP SCH ×2 (08:24→20:34)
[2021-04-04] MEDS: VITAMIN A PO SCH (08:24)
[2021-04-04] MEDS: PULMICORT NEB TX 0.5 MG NEB SCH ×2 (09:00→20:50)
[2021-04-04] MEDS: ZITHROMAX INJ 500 MG VIAL 500 MG in NS 250 ML IV 250 ML IV SCH (09:14)
[2021-04-04] MEDS: VORICONAZOLE 200 MG in NS 50 ML IV + SPIKE MINIBAG* 50 ML IV SCH ×2 (11:22→20:34)
--- NOTE | 2021-04-04 13:46 | RAD ---
HISTORYRESP FAILURE, HYPOXIA, COVID + Relevant Clinical InformationSTUDYCHEST, 1 VIEWCOMPARISONPortable chest 03 April 2021FINDINGSThe trachea is midline. An ET tube is in place with the tip located 6.4 cm above the rupal. An NG tube is in place is well with the tip below the diaphragm. A left subclavian line is in place possibly a PICC line. Bilateral marked interstitial lung pattern is stable compared to yesterdays film. There is also a interstitial lung disease in the right upper lobe when compared to older films of March 25, 2021 the interstitial infiltrate in the right upper lobe is new the interstitial infiltrate in the left lung base has worsened but there is no significant change compared to the right lower lobe interstitial infiltrate. The cardiac silhouette is unremarkablIMPRESSION: ETT NG tube and left subclavian central venous catheter are stable. Bibasilar interstitial infiltrates probably a combination of interstitial fibrosis and superimposed interstitial pneumonitis are stable compared to yesterday's exam. The right apical airspace disease is also unchanged from yesterday's study and definitely worsened when compared to April 01, 2021. Small pleural effusion is suspect in the left lung base.Electronically signed by: TONIO CANCHOLA (Apr 04, 2021 13:44:52)
[2021-04-04] MEDS: MELATONIN PO SCH (20:33)
[2021-04-05] MEDS: VERSED IV PREMIX 100 MG/100 ML IV.SOLN IV PRN ×3 (01:35→17:21)
[2021-04-05] MEDS: PROVENTIL NEB TX 0.083% 2.5MG/ 3ML NEB SCH ×6 (01:45→20:15)
[2021-04-05] MEDS: NS 1/2 + KCL 20 MEQ/L 1,000 ML IV SCH ×3 (03:55→17:10)
[2021-04-05] MEDS: NS 500 ML IV 500 ML IV PRN (03:56)
[2021-04-05] MEDS: ASCORBIC ACID INJ MULTI-DOSE VIAL 1,500 MG in NS 100 ML IV 100 ML IV SCH ×4 (03:56→21:00)
[2021-04-05] MEDS: SOLU-Medrol 40 MG VIAL IVP SCH ×4 (03:56→21:30)
[2021-04-05 04:59] LABS: BASOPHILS # (AUTO) 0.2 X10^3/uL (0.0-0.1); BASOPHILS % (AUTO) 1.1 % (0.2-1.0); HEMATOCRIT 23.5 % (36.0-47.0); HEMOGLOBIN 7.7 g/dL (12.0-16.0); LYMPHOCYTES # (AUTO) 0.1 X10^3/uL (1.3-2.9); LYMPHOCYTES % (AUTO) 0.8 % (21.0-51.0); MEAN CORPUSCULAR HEMOGLOBIN 28.8 pg (27.0-34.0); MEAN CORPUSCULAR HGB CONC 32.9 g/dL (33.0-35.0); MEAN CORPUSCULAR VOLUME 87.5 fL (80.0-100.0); MEAN PLATELET VOLUME 11.2 fL (7.4-11.0); MONOCYTES # (AUTO) 0.4 x10^3/uL (0.3-0.8); MONOCYTES % (AUTO) 2.5 % (0.0-13.0); NEUTROPHILS % (AUTO) 95.6 % (42.0-75.0); PLATELET COUNT 68 X10^3/uL (150.0-450.0); RED BLOOD COUNT 2.69 X10^6/uL (3.5-5.4); RED CELL DISTRIBUTION WIDTH 15.8 % (11.6-16.5); WHITE BLOOD COUNT 14.6 X10^3/uL (3.6-10.0)
[2021-04-05] MEDS: DIPRIVAN PREMIX 1 GRAM IV 1,000 MG/100 ML VIAL IV PRN ×2 (05:00→22:22)
[2021-04-05 05:21] LABS: ALANINE AMINOTRANSFERASE 21 Units/L (12-78); ALBUMIN 3.4 g/dL (3.4-5.0); ALKALINE PHOSPHATASE 149 Units/L (46-116); ASPARTATE AMINO TRANSFERASE 22 Units/L (15-37); BLOOD UREA NITROGEN 70 mg/dL (7-18); CALCIUM 7.6 mg/dL (8.5-10.1); CARBON DIOXIDE 24.7 mmol/L (21-32); COR NA(FOR HYPERGLY) 148 mmol/L (136-145); CREATININE 0.76 mg/dL (0.55-1.02); SODIUM 147 mmol/L (136-145); eGFR NON BLACK RACES > 60 (>60)
[2021-04-05 05:36] LABS: BAND NEUTROPHILS % 1 % (0-10)
[2021-04-05 05:37] LABS: HYPOCHROMASIA SLIGHT; PLATELET MORPHOLOGY COMMENT NORMAL (NORMAL)
[2021-04-05 05:39] LABS: CHLORIDE 117 mmol/L (98-107)
[2021-04-05] MEDS: MERREM VIAL 500 MG in NS 100 ML IV + SPIKE MINIBAG* 100 ML IV SCH ×3 (05:41→21:38)
[2021-04-05 05:52] LABS: ABG ALLEN TEST POS; ABG BASE EXCESS -4.9 mmol/L (-2.0-2.0); ABG HCO3 22.4 mmol/L (22-26)
[2021-04-05] MEDS: ALBUMIN HUMAN 25%- 100 ML 100 ML IV SCH ×2 (08:09→21:00)
[2021-04-05] MEDS: ACTOS PO SCH (08:09)
[2021-04-05] MEDS: CYTOTEC PO SCH ×4 (08:10→21:20)
[2021-04-05] MEDS: PROTONIX INJ 40 MG VIAL IVP SCH ×2 (08:11→21:25)
[2021-04-05] MEDS: LIPITOR TAB 80 MG PO SCH (08:11)
[2021-04-05] MEDS: FLUVOXAMINE MALEATE PO SCH ×2 (08:11→21:22)
[2021-04-05] MEDS: THIAMINE HCL INJ IVP SCH ×2 (08:11→21:36)
[2021-04-05] MEDS: VITAMIN A PO SCH (08:11)
[2021-04-05] MEDS: ZITHROMAX INJ 500 MG VIAL 500 MG in NS 250 ML IV 250 ML IV SCH (08:12)
[2021-04-05] MEDS: VITAMIN D3 125 mcg (5,000 UNITS) PO SCH (08:12)
[2021-04-05] MEDS: VORICONAZOLE 200 MG in NS 50 ML IV + SPIKE MINIBAG* 50 ML IV SCH ×2 (08:34→21:30)
[2021-04-05] MEDS: PULMICORT NEB TX 0.5 MG NEB SCH ×2 (09:10→20:15)
[2021-04-05] MEDS ORDERED: NS 500 ML IV 500 ML IV ONE (09:13)
[2021-04-05] MEDS: PEPCID 20 MG IV PREMIX* 20 MG/50 ML BAG IV SCH ×2 (10:32→21:30)
[2021-04-05 20:11] LABS: HEMATOCRIT 32.3 % (36.0-47.0); HEMOGLOBIN 10.8 g/dL (12.0-16.0)
[2021-04-05] MEDS: MELATONIN PO SCH (21:23)
[2021-04-05] MEDS ORDERED: SALINE 3% 15 ML NEB TX ONE (23:55)
[2021-04-06] MEDS: PROVENTIL NEB TX 0.083% 2.5MG/ 3ML NEB SCH ×6 (00:10→20:30)
[2021-04-06] MEDS: SOLU-Medrol 40 MG VIAL IVP SCH ×4 (02:11→20:00)
[2021-04-06] MEDS: NS 1/2 + KCL 20 MEQ/L 1,000 ML IV SCH ×4 (02:11→17:01)
[2021-04-06] MEDS: ASCORBIC ACID INJ MULTI-DOSE VIAL 1,500 MG in NS 100 ML IV 100 ML IV SCH ×4 (02:11→20:00)
[2021-04-06 04:56] LABS: BASOPHILS # (AUTO) 0.1 X10^3/uL (0.0-0.1); BASOPHILS % (AUTO) 0.4 % (0.2-1.0); HEMATOCRIT 29.2 % (36.0-47.0); HEMOGLOBIN 9.8 g/dL (12.0-16.0); LYMPHOCYTES # (AUTO) 0.1 X10^3/uL (1.3-2.9); LYMPHOCYTES % (AUTO) 0.4 % (21.0-51.0); MEAN CORPUSCULAR HEMOGLOBIN 29.6 pg (27.0-34.0); MEAN CORPUSCULAR HGB CONC 33.5 g/dL (33.0-35.0); MEAN CORPUSCULAR VOLUME 88.4 fL (80.0-100.0); MEAN PLATELET VOLUME 11.2 fL (7.4-11.0); MONOCYTES # (AUTO) 0.3 x10^3/uL (0.3-0.8); MONOCYTES % (AUTO) 1.9 % (0.0-13.0); NEUTROPHILS # (AUTO) 16.7 x10^3/uL (2.2-4.8); NEUTROPHILS % (AUTO) 97.3 % (42.0-75.0); PLATELET COUNT 56 X10^3/uL (150.0-450.0); RED CELL DISTRIBUTION WIDTH 15.8 % (11.6-16.5); WHITE BLOOD COUNT 17.2 X10^3/uL (3.6-10.0)
[2021-04-06 05:04] LABS: ALANINE AMINOTRANSFERASE 20 Units/L (12-78); ALBUMIN 3.4 g/dL (3.4-5.0); ALKALINE PHOSPHATASE 152 Units/L (46-116); ASPARTATE AMINO TRANSFERASE 22 Units/L (15-37); BLOOD UREA NITROGEN 69 mg/dL (7-18); CALCIUM 7.8 mg/dL (8.5-10.1); CARBON DIOXIDE 22.1 mmol/L (21-32); COR NA(FOR HYPERGLY) 153 mmol/L (136-145); CREATININE 0.77 mg/dL (0.55-1.02); TOTAL PROTEIN 5.1 g/dL (6.4-8.2); eGFR NON BLACK RACES > 60 (>60)
[2021-04-06 05:16] LABS: CHLORIDE 119 mmol/L (98-107); SODIUM 152 mmol/L (136-145)
[2021-04-06 05:18] LABS: BAND NEUTROPHILS % 2 % (0-10); PLATELET MORPHOLOGY COMMENT NORMAL (NORMAL)
[2021-04-06] MEDS: MERREM VIAL 500 MG in NS 100 ML IV + SPIKE MINIBAG* 100 ML IV SCH ×3 (06:00→21:22)
[2021-04-06 06:35] LABS: ABG BASE EXCESS -6.6 mmol/L (-2.0-2.0); ABG HCO3 22.2 mmol/L (22-26)
[2021-04-06] MEDS: ACTOS PO SCH (08:33)
[2021-04-06] MEDS: ALBUMIN HUMAN 25%- 100 ML 100 ML IV SCH ×2 (08:33→21:00)
[2021-04-06] MEDS: FLUVOXAMINE MALEATE PO SCH ×2 (08:34→20:00)
[2021-04-06] MEDS: PROTONIX INJ 40 MG VIAL IVP SCH ×2 (08:34→20:00)
[2021-04-06] MEDS: LIPITOR TAB 80 MG PO SCH (08:34)
[2021-04-06] MEDS: CYTOTEC PO SCH ×4 (08:34→20:00)
[2021-04-06] MEDS: PEPCID 20 MG IV PREMIX* 20 MG/50 ML BAG IV SCH ×2 (08:34→20:00)
[2021-04-06] MEDS: VITAMIN A PO SCH (08:35)
[2021-04-06] MEDS: ZITHROMAX INJ 500 MG VIAL 500 MG in NS 250 ML IV 250 ML IV SCH (08:35)
[2021-04-06] MEDS: THIAMINE HCL INJ IVP SCH ×2 (08:35→20:00)
[2021-04-06] MEDS: VITAMIN D3 125 mcg (5,000 UNITS) PO SCH (08:35)
[2021-04-06] MEDS: VORICONAZOLE 200 MG in NS 50 ML IV + SPIKE MINIBAG* 50 ML IV SCH (08:36)
[2021-04-06] MEDS: PULMICORT NEB TX 0.5 MG NEB SCH ×2 (09:25→20:30)
[2021-04-06] MEDS: IVERMECTIN PO SCH (10:01)
[2021-04-06] MEDS: VANCOMYCIN IV *PREMIX 1 G/200 ML BAG 1 G/200 ML PIGGYBACK IV SCH ×2 (10:03→20:35)
[2021-04-06] MEDS: VERSED IV PREMIX 100 MG/100 ML IV.SOLN IV PRN ×2 (11:15→19:42)
[2021-04-06] MEDS: DIFLUCAN 200 MG IV PREMIX* 200 MG/100 ML BAG IV SCH ×3 (12:16→14:51)
[2021-04-06] MEDS: DIPRIVAN PREMIX 1 GRAM IV 1,000 MG/100 ML VIAL IV PRN (19:41)
[2021-04-06] MEDS: MELATONIN PO SCH (20:00)
[2021-04-06] MEDS ORDERED: SALINE 0.9% 3 ML NEB TX ONE (21:32)
[2021-04-07] MEDS: PROVENTIL NEB TX 0.083% 2.5MG/ 3ML NEB SCH ×6 (00:20→20:15)
[2021-04-07] MEDS: NS 1/2 + KCL 20 MEQ/L 1,000 ML IV SCH ×3 (02:23→17:12)
[2021-04-07] MEDS: ASCORBIC ACID INJ MULTI-DOSE VIAL 1,500 MG in NS 100 ML IV 100 ML IV SCH ×4 (03:00→21:25)
[2021-04-07] MEDS: SOLU-Medrol 40 MG VIAL IVP SCH ×4 (03:00→21:22)
[2021-04-07] MEDS: DOPAMINE IV PREMIX 400 MG/250 ML 400 MG/250 ML BAG IV PRN ×4 (03:26→23:51)
[2021-04-07] MEDS: VERSED IV PREMIX 100 MG/100 ML IV.SOLN IV PRN ×3 (04:03→21:23)
[2021-04-07 04:14] LABS: BASOPHILS # (AUTO) 0.1 X10^3/uL (0.0-0.1); BASOPHILS % (AUTO) 0.3 % (0.2-1.0); EOSINOPHILS % (AUTO) 0.1 % (0.9-2.9); HEMATOCRIT 23.1 % (36.0-47.0); HEMOGLOBIN 7.3 g/dL (12.0-16.0); LYMPHOCYTES # (AUTO) 0.2 X10^3/uL (1.3-2.9); LYMPHOCYTES % (AUTO) 0.7 % (21.0-51.0); MEAN CORPUSCULAR HEMOGLOBIN 28.6 pg (27.0-34.0); MEAN CORPUSCULAR HGB CONC 31.8 g/dL (33.0-35.0); MEAN PLATELET VOLUME 10.9 fL (7.4-11.0); MONOCYTES # (AUTO) 0.4 x10^3/uL (0.3-0.8); MONOCYTES % (AUTO) 1.6 % (0.0-13.0); NEUTROPHILS # (AUTO) 24.1 x10^3/uL (2.2-4.8); NEUTROPHILS % (AUTO) 97.3 % (42.0-75.0); PLATELET COUNT 40 X10^3/uL (150.0-450.0); RED BLOOD COUNT 2.57 X10^6/uL (3.5-5.4); RED CELL DISTRIBUTION WIDTH 16.9 % (11.6-16.5); WHITE BLOOD COUNT 24.8 X10^3/uL (3.6-10.0)
[2021-04-07 04:23] LABS: ALANINE AMINOTRANSFERASE 20 Units/L (12-78); ALBUMIN 3.1 g/dL (3.4-5.0); ALKALINE PHOSPHATASE 151 Units/L (46-116); ASPARTATE AMINO TRANSFERASE 29 Units/L (15-37); BLOOD UREA NITROGEN 82 mg/dL (7-18); CALCIUM 7.7 mg/dL (8.5-10.1); CARBON DIOXIDE 23.5 mmol/L (21-32); COR CA(FOR HYPOALB) 8.4 mg/dL (8.5-10.1); COR NA(FOR HYPERGLY) 154 mmol/L (136-145); CREATININE 1.09 mg/dL (0.55-1.02); TOTAL PROTEIN 4.7 g/dL (6.4-8.2); eGFR NON BLACK RACES 54 (>60)
[2021-04-07 04:25] LABS: SODIUM 153 mmol/L (136-145)
[2021-04-07 04:26] LABS: CHLORIDE 118 mmol/L (98-107)
[2021-04-07] MEDS: LEVOPHED INJ 8 MG in D5W 250 ML IV 242 ML IV PRN ×2 (04:36→16:58)
[2021-04-07 05:04] LABS: ABG BASE EXCESS -8.3 mmol/L (-2.0-2.0); ABG HCO3 21.4 mmol/L (22-26)
[2021-04-07] MEDS: MERREM VIAL 500 MG in NS 100 ML IV + SPIKE MINIBAG* 100 ML IV SCH ×3 (05:06→21:21)
[2021-04-07 05:20] LABS: BAND NEUTROPHILS % 1 % (0-10); PLATELET MORPHOLOGY COMMENT NORMAL (NORMAL)
--- NOTE | 2021-04-07 06:14 | RAD ---
HISTORYLOW O2 SATS, VENTILATOR DEPENDENCE, COVID+STUDYCHEST, 1 [id number]/07/2021TECHNIQUEAP view of the chestFINDINGSET tube in good position. NG tube courses below the visualized field of view.Left subclavian central line in decent position. Patient is rotated. Cardiac and mediastinal contours are mostly obscured. There is interval worsening of bilateral airspace disease, diffuse on the right, and with some preserved aeration in the left upper lobe. Suspect small to moderate bilateral pleural effusions. Background of COPD. No pneumothorax.IMPRESSIONInterval worsening of bilateral airspace disease, some of which is suspicious for pneumonia. Background of COPD with presumed fibrosis. Suspect small to moderate pleural effusions.Electronically signed by: Joseph Corey (Apr 07, 2021 06:12:49)
[2021-04-07] MEDS ORDERED: NS 500 ML IV 500 ML IV ONE (06:56)
[2021-04-07] MEDS: PULMICORT NEB TX 0.5 MG NEB SCH ×2 (09:00→20:15)
[2021-04-07] MEDS: FLUVOXAMINE MALEATE PO SCH ×2 (09:06→21:24)
[2021-04-07] MEDS: ACTOS PO SCH (09:06)
[2021-04-07] MEDS: CYTOTEC PO SCH ×4 (09:06→21:25)
[2021-04-07] MEDS: THIAMINE HCL INJ IVP SCH ×2 (09:07→21:22)
[2021-04-07] MEDS: IVERMECTIN PO SCH (09:07)
[2021-04-07] MEDS: PROTONIX INJ 40 MG VIAL IVP SCH ×2 (09:08→21:22)
[2021-04-07] MEDS: LIPITOR TAB 80 MG PO SCH (09:08)
[2021-04-07] MEDS: VITAMIN A PO SCH (09:09)
[2021-04-07] MEDS: VITAMIN D3 125 mcg (5,000 UNITS) PO SCH (09:10)
[2021-04-07] MEDS: ALBUMIN HUMAN 25%- 100 ML 100 ML IV SCH ×2 (09:23→21:20)
[2021-04-07] MEDS: PEPCID 20 MG IV PREMIX* 20 MG/50 ML BAG IV SCH (10:17)
[2021-04-07] MEDS: VANCOMYCIN IV *PREMIX 1 G/200 ML BAG 1 G/200 ML PIGGYBACK IV SCH ×2 (10:17→21:21)
[2021-04-07] MEDS: ZITHROMAX INJ 500 MG VIAL 500 MG in NS 250 ML IV 250 ML IV SCH (10:18)
[2021-04-07] MEDS ORDERED: ERAXIS 200 MG in NS 250 ML IV 200 ML IV NR (15:00)
[2021-04-07] MEDS ORDERED: NS 100 ML IV 100 ML ONE (16:28)
[2021-04-07] MEDS: DIPRIVAN PREMIX 1 GRAM IV 1,000 MG/100 ML VIAL IV PRN (16:59)
[2021-04-07 20:59] LABS: CREATININE 1.46 mg/dL (0.55-1.02)
[2021-04-07] MEDS ORDERED: PHARMACY COMMENT IV ONE (21:00)
[2021-04-07 21:04] LABS: VANCOMYCIN,TROUGH 33.2 ug/mL (15-20)
[2021-04-07] MEDS: MELATONIN PO SCH (21:23)
[2021-04-08] MEDS: PROVENTIL NEB TX 0.083% 2.5MG/ 3ML NEB SCH ×5 (00:10→17:17)
[2021-04-08 00:58] LABS: HEMATOCRIT 25.4 % (36.0-47.0); HEMOGLOBIN 8.5 g/dL (12.0-16.0)
[2021-04-08] MEDS: ASCORBIC ACID INJ MULTI-DOSE VIAL 1,500 MG in NS 100 ML IV 100 ML IV SCH ×3 (02:21→14:25)
[2021-04-08] MEDS: SOLU-Medrol 40 MG VIAL IVP SCH ×3 (02:22→14:25)
[2021-04-08 04:06] LABS: ABG BASE EXCESS -13.9 mmol/L (-2.0-2.0)
[2021-04-08 04:07] LABS: ABG HCO3 16.9 mmol/L (22-26)
[2021-04-08] MEDS: LEVOPHED INJ 8 MG in D5W 250 ML IV 242 ML IV PRN ×4 (04:10→13:39)
[2021-04-08] MEDS: MERREM VIAL 500 MG in NS 100 ML IV + SPIKE MINIBAG* 100 ML IV SCH ×2 (05:03→14:25)
[2021-04-08] MEDS: NS 1/2 + KCL 20 MEQ/L 1,000 ML IV SCH ×3 (05:04→17:01)
[2021-04-08] MEDS: DOPAMINE IV PREMIX 400 MG/250 ML 400 MG/250 ML BAG IV PRN ×3 (05:52→19:10)
[2021-04-08] MEDS: LACRI-LUBE S.O.P. AFFEYE PRN (05:53)
[2021-04-08] MEDS: VERSED IV PREMIX 100 MG/100 ML IV.SOLN IV PRN (05:54)
--- NOTE | 2021-04-08 06:16 | RAD ---
HISTORYCOVID PNEUMONIA HX: HTN, COPD SX: HYST.STUDYCHEST, 1 [id number]/10/2021FINDINGSEndotrac heal tube is unchanged since prior approximately 6 centimeters from the rupal. There is a left sided central catheter at the left brachiocephalic trunk. There is a nasogastric tube below the diaphragm. There is again seen extensive airspace disease with confluence alveolar and reticular radiopacities involving both bases and the right upper lobe. Since prior study, there has no significant change. No evidence of subcutaneous emphysema or pneumothorax.IMPRESSIONOverall unchanged severe alveolar and reticular airspace disease involving both lungs with confluent areas in the bases and in the right midlung zone. Tubes and lines are unchanged.Electronically signed by: Chelsie De La Garza (Apr 08, 2021 06:14:59)
[2021-04-08 06:18] LABS: CALCIUM 7.6 mg/dL (8.5-10.1); CARBON DIOXIDE 17.9 mmol/L (21-32); COR CA(FOR HYPOALB) 8.4 mg/dL (8.5-10.1); CREATININE 1.6 mg/dL (0.55-1.02); TOTAL PROTEIN 4.9 g/dL (6.4-8.2)
[2021-04-08 06:27] LABS: BASOPHILS # (AUTO) 0.2 X10^3/uL (0.0-0.1); BASOPHILS % (AUTO) 1.1 % (0.2-1.0); EOSINOPHILS % (AUTO) 0.1 % (0.9-2.9); HEMATOCRIT 24.9 % (36.0-47.0); HEMOGLOBIN 8.1 g/dL (12.0-16.0); LYMPHOCYTES # (AUTO) 0.3 X10^3/uL (1.3-2.9); LYMPHOCYTES % (AUTO) 1.2 % (21.0-51.0); MEAN CORPUSCULAR HEMOGLOBIN 28.2 pg (27.0-34.0); MEAN CORPUSCULAR HGB CONC 32.4 g/dL (33.0-35.0); MEAN CORPUSCULAR VOLUME 87.2 fL (80.0-100.0); MEAN PLATELET VOLUME 9.9 fL (7.4-11.0); MONOCYTES # (AUTO) 0.1 x10^3/uL (0.3-0.8); MONOCYTES % (AUTO) 0.5 % (0.0-13.0); NEUTROPHILS # (AUTO) 22.8 x10^3/uL (2.2-4.8); NEUTROPHILS % (AUTO) 97.1 % (42.0-75.0); PLATELET COUNT 85 X10^3/uL (150.0-450.0); RED BLOOD COUNT 2.86 X10^6/uL (3.5-5.4); RED CELL DISTRIBUTION WIDTH 18.7 % (11.6-16.5); WHITE BLOOD COUNT 23.4 X10^3/uL (3.6-10.0)
[2021-04-08 07:34] LABS: BAND NEUTROPHILS % 5 % (0-10); METAMYELOCYTES % 1
[2021-04-08 07:35] LABS: ANISOCYTOSIS SLIGHT; PLATELET MORPHOLOGY COMMENT NORMAL (NORMAL)
[2021-04-08] MEDS ORDERED: NS 100 ML IV 100 ML ONE (07:42)
[2021-04-08] MEDS ORDERED: PHARMACY COMMENT IV SCH (08:00)
[2021-04-08] MEDS: PULMICORT NEB TX 0.5 MG NEB SCH (08:58)
[2021-04-08] MEDS ORDERED: PEPCID 20 MG IV PREMIX* 20 MG/50 ML BAG IV SCH (09:00)
[2021-04-08] MEDS ORDERED: ERAXIS 100 MG in NS 100 ML IV 100 ML IV SCH (09:00)
[2021-04-08] MEDS: ACTOS PO SCH (09:10)
[2021-04-08] MEDS: ALBUMIN HUMAN 25%- 100 ML 100 ML IV SCH (09:11)
[2021-04-08] MEDS: LIPITOR TAB 80 MG PO SCH (09:12)
[2021-04-08] MEDS: FLUVOXAMINE MALEATE PO SCH (09:12)
[2021-04-08] MEDS: CYTOTEC PO SCH ×3 (09:12→17:01)
[2021-04-08] MEDS: IVERMECTIN PO SCH (09:13)
[2021-04-08] MEDS: VITAMIN A PO SCH (09:13)
[2021-04-08] MEDS: THIAMINE HCL INJ IVP SCH (09:13)
[2021-04-08] MEDS: PROTONIX INJ 40 MG VIAL IVP SCH (09:13)
[2021-04-08] MEDS: ZITHROMAX INJ 500 MG VIAL 500 MG in NS 250 ML IV 250 ML IV SCH (09:14)
[2021-04-08] MEDS: VITAMIN D3 125 mcg (5,000 UNITS) PO SCH (09:14)
[2021-04-08 09:55] LABS: CREATININE 1.79 mg/dL (0.55-1.02)
[2021-04-08 10:11] LABS: VANCOMYCIN,TROUGH 27.4 ug/mL (15-20)
--- NOTE | 2021-04-08 15:00 | PCM.PROG ---
Progress Note Progress Note for Day of Date of Exam: 04/08/21 Subjective Subjective: Pt is a 60-year-old female admitted for COVID-19 pneumonia, Acute Respiratory Failure, and pulmonary embolism. She is currently requiring mechanical ventilation. Has NGT. She continues to require Dopamine gtt to keep MAP greater than 65. She is currently in supine position. Ventilation settings were adjusted based on ABG: SIMV, Rate 32, TV 450, PEEP 20, FiO2 100%. Labs/imaging: Wbc 23.4, Hgb 8.1, Plt 90, Na 146, K 5.8, Creatinine 1.79, Glucose 215, CXR: no change from prior. Continue treatments: IVF@KVO, Solumedrol 40mg q6h, scheduled Bronchodilators, Antibiotics: Voriconazole and Azithromycin, immune supporting supplements, supplemental O2, SSI, I/S. Respiratory therapy consult. Holding lovenox at this time due to anemia and blood loss. Wean FiO2 as tolerated. Otherwise continue with current treatment plan. Will continue to closely monitor and follow up labs/imaging. Critical care time spent 30-74 minutes in clinical assessment, reviewing labs/imaging, decision making, and documentation. The family is to come in today and make a decison regarding comfort measures and to decide if they barbra to stop treatment later today. She is currrnetly maxed out on Dopamine and Levop hed. Past Medical Family Social History Past Med/Fam/Surg Hx: No changes since H&P Allergies: Allergies acetaminophen [From Darvocet-N] Allergy (Verified 12/25/18 18:39) levofloxacin [From Levaquin] Allergy (Verified 03/12/21 03:56) propoxyphene [From Darvocet-N] Allergy (Verified 12/25/18 18:39) tetracycline Allergy (Verified 12/17/20 18:24) umeclidinium [From Anoro Ellipta] Allergy (Verified 12/17/20 18:24) vilanterol [From Anoro Ellipta] Allergy (Verified 12/17/20 18:24) Review of Systems ROS: Changes notes (describe) Vital Signs and I&O's Vital Signs: Temperature 97.6 F Pulse Rate [Right Brachial] 81 Pulse Rate 74 Respiratory Rate 32 Blood Pressure [Left Arm] 117/58 Blood Pressure 78/50 O2 Sat by Pulse Oximetry 54 Intake and Output: Intake & Output 04/06/21 04/07/21 04/08/21 04/09/21 11:59 11:59 11:59 11:59 Intake Total 5776 / 5776 5103 / 5103 6831 / 6831 600 / 600 Output Total 2105 / 2105 960 / 960 650 / 650 Balance 3671 / 3671 4143 / 4143 6181 / 6181 600 / 600 Physical Exam Oriented: Unable to test and Other (Mechanical ventilation) Eyes: Normal Nose: Normal Respiratory: Diminished, Rales and Rhonchi Cardiovascular: Normal : Normal Auscultation: Bowel Sounds: Normal Tenderness: Normal Skin: Normal Musculoskeletal: Normal Psychiatric: Other Speech Pattern: Artificially Ventilated Laboratory and Diagnostics Result Diagrams: 04/08/21 05:25 04/08/21 09:10 Labs: 04/06/21 09:30 Sputum - Endotracheal Wash Sputum Culture - Preliminary 04/06/21 09:30 Sputum - Endotracheal Wash - Final 03/21/21 03:30 Sputum - Expectorated Sputum Sputum Culture - Final Chryseom Luteola/Flavim Oryzi 03/21/21 03:30 Sputum - Expectorated Sputum - Final 03/23/21 00:49 Sputum - Endotracheal Wash Sputum Culture - Final 03/23/21 00:49 Sputum - Endotracheal Wash - Final 03/20/21 20:45 Urine,Clean Catch Urine Culture - Final Laboratory WBC 23.4 X10^3/uL (3.6-10.0) H 04/08/21 05:25 RBC 2.86 X10^6/uL (3.5-5.4) L 04/08/21 05:25 Hgb 8.1 g/dL (12.0-16.0) L 04/08/21 05:25 Hct 24.9 % (36.0-47.0) L 04/08/21 05:25 MCV 87.2 fL (80.0-100.0) 04/08/21 05:25 MCH 28.2 pg (27.0-34.0) 04/08/21 05:25 MCHC 32.4 g/dL (33.0-35.0) L 04/08/21 05:25 RDW 18.7 % (11.6-16.5) H 04/08/21 05:25 Plt Count 85 X10^3/uL (150.0-450.0) L 04/08/21 05:25 Plt Count Comment Decreased (ADEQUATE) A 04/08/21 05:25 MPV 9.9 fL (7.4-11.0) 04/08/21 05:25 Neut % (Auto) 97.1 % (42.0-75.0) H 04/08/21 05:25 Lymph % (Auto) 1.2 % (21.0-51.0) L 04/08/21 05:25 [place] % (Auto) 0.5 % (0.0-13.0) 04/08/21 05:25 Eos % (Auto) 0.1 % (0.9-2.9) L 04/08/21 05:25 Baso % (Auto) 1.1 % (0.2-1.0) H 04/08/21 05:25 Neut # (Auto) 22.8 x10^3/uL (2.2-4.8) H 04/08/21 05:25 Lymph # (Auto) 0.3 X10^3/uL (1.3-2.9) L 04/08/21 05:25 [place] # (Auto) 0.1 x10^3/uL (0.3-0.8) L 04/08/21 05:25 Eos # (Auto) 0.0 x10^3/uL (0.0-0.2) 04/08/21 05:25 Baso # (Auto) 0.2 X10^3/uL (0.0-0.1) H 04/08/21 05:25 Absolute Nucleated RBC 0.2 /100WBC 04/08/21 05:25 Total Counted 100 04/08/21 05:25 Neutrophils % (Manual) 90 % (39-76) H 04/08/21 05:25 Band Neutrophils % 5 % (0-10) 04/08/21 05:25 Lymphocytes % (Manual) 3 % (13-43) L 04/08/21 05:25 Monocytes % (Manual) 1 % (4-9) L 04/08/21 05:25 Metamyelocytes % 1 04/08/21 05:25 Plt Morphology Comment Normal (NORMAL) 04/08/21 05:25 RBC Morphology Abnormal (NORMAL) A 04/08/21 05:25 Dimorphic RBCs Slight 04/08/21 05:25 Hypochromasia Slight A 04/05/21 04:16 Anisocytosis Slight A 04/08/21 05:25 Microcytosis Slight A 04/03/21 04:00 PT 13.4 SECONDS (11.8-14.3) 03/20/21 19:52 INR Target Range - 03/20/21 19:52 INR 1.07 (0.8-1.3) 03/20/21 19:52 APTT 24.8 SECONDS (22.9-36.5) 03/20/21 19:52 PTT Comment - 03/20/21 19:52 D-Dimer 3.42 ug/ml (0.0-0.57) H* 03/20/21 19:52 Sample Site [place] 04/08/21 04:00 ABG pH 7.050 (7.35-7.45) L* 04/08/21 04:00 ABG pCO2 61.0 mmHg (35.0-45.0) H* 04/08/21 04:00 ABG pO2 28.0 mmHg (80.0-100.0) L* 04/08/21 04:00 ABG HCO3 16.9 mmol/L (22-26) L* 04/08/21 04:00 ABG O2 Saturation 27.0 % (90-100) L* 04/08/21 04:00 ABG Base Excess -13.9 mmol/L (-2.0-2.0) L 04/08/21 04:00 Laz Test N/a 04/08/21 04:00 A-a Gradient 609.0 mmHg 04/08/21 04:00 FiO2 100.0 04/08/21 04:00 Blood Gas Comments Tino well ae 04/08/21 04:00 Sodium 146 mmol/L (136-145) H 04/08/21 05:25 Corrected Sodium 149 mmol/L (136-145) H 04/08/21 05:25 Potassium 5.8 mmol/L (3.5-5.1) H 04/08/21 05:25 Chloride 115 mmol/L (98-107) H* 04/08/21 05:25 Carbon Dioxide 17.9 mmol/L (21-32) L 04/08/21 05:25 BUN 97 mg/dL (7-18) H 04/08/21 05:25 Creatinine 1.79 mg/dL (0.55-1.02) H 04/08/21 09:10 Est GFR (MDRD) Af Amer 42 (>60) L 04/08/21 05:25 Est GFR (MDRD) Non-Af 35 (>60) L 04/08/21 05:25 Glucose 215 mg/dL (65-99) H 04/08/21 05:25 Plasma/Ser Osmolality 322 mOsm/kg (280-303) H 03/31/21 15:31 Calculated Osmolality 344 mOsm/kg (285-295) H 04/03/21 04:00 Calcium 7.6 mg/dL (8.5-10.1) L 04/08/21 05:25 Corrected Calcium 8.4 mg/dL (8.5-10.1) L 04/08/21 05:25 Magnesium 2.8 mg/dL (1.7-2.9) 03/26/21 04:35 Total Bilirubin 0.60 mg/dL (0.2-1.0) 04/08/21 05:25 AST 40 Units/L (15-37) H 04/08/21 05:25 ALT 19 Units/L (12-78) 04/08/21 05:25 Alkaline Phosphatase 199 Units/L (46-116) H 04/08/21 05:25 Creatine Kinase 40 Units/L (26-192) 03/20/21 19:52 CK-MB (CK-2) 2.4 ng/mL (0-4.0) 03/20/21 19:52 CK/CKMB % Calc 6.0 % (<4) 03/20/21 19:52 Troponin I < 0.02 ng/mL (0-1.5) 03/20/21 19:52 C-Reactive Protein 11.40 mg/L (0-3.0) H 04/06/21 04:09 B-Natriuretic Peptide 48.0 pg/mL (0-79) 03/20/21 19:52 Total Protein 4.9 g/dL (6.4-8.2) L 04/08/21 05:25 Albumin 3.0 g/dL (3.4-5.0) L 04/08/21 05:25 Globulin 1.9 g/dL (2.5-4.5) L 04/08/21 05:25 Albumin/Globulin Ratio 1.6 Ratio (1.1-2.1) 04/08/21 05:25 Specimen Type Catherized urine 03/20/21 20:45 Urine Color Yellow (YELLOW) 03/20/21 20:45 Urine Appearance Clear (CLEAR) 03/20/21 20:45 Urine pH 6.0 (5.0 - 8.0) 03/20/21 20:45 Ur Specific [place] 1.010 (1.000-1.030) 03/20/21 20:45 Urine Protein 2+ (NEGATIVE) 03/20/21 20:45 Urine Glucose (UA) Negative (NEGATIVE) 03/20/21 20:45 Urine Ketones Negative (NEGATIVE) 03/20/21 20:45 Urine Occult Blood 1+ (NEGATIVE) 03/20/21 20:45 Urine Nitrite Negative (NEGATIVE) 03/20/21 20:45 Urine Bilirubin Negative (NEGATIVE) 03/20/21 20:45 Urine Urobilinogen Normal (NORMAL) 03/20/21 20:45 Ur Leukocyte Esterase Negative (NEGATIVE) 03/20/21 20:45 Urine RBC 5-10 /HPF (0-3) A 03/20/21 20:45 Urine WBC 3-5 /HPF (0-5) 03/20/21 20:45 Ur Squamous Epith Cells Rare /HPF (NEGATIVE) 03/20/21 20:45 Urine Bacteria Trace /HPF (NEGATIVE) 03/20/21 20:45 Ur Culture Indicated? No/not indicated 03/20/21 20:45 Urine Osmolality 389 mOsm/kg 03/31/21 15:40 Stool Description 40g dk green mucoid 03/31/21 14:24 Stl Occult Blood (IFOB) Positive (NEGATIVE) A 03/31/21 14:24 Vancomycin Trough 27.4 ug/mL (15-20) H* 04/08/21 09:10 SARS-CoV-2 (PCR) Positive (NEGATIVE) A 03/21/21 00:07 Influenza Type A (PCR) Negative (NEGATIVE) 03/21/21 00:07 Influenza Type B (PCR) Negative (NEGATIVE) 03/21/21 00:07 RSV (PCR) Negative (NEGATIVE) 03/21/21 00:07 Miscellaneous Test Urine osmo 04/03/21 10:36 Blood Type B POSITIVE 04/05/21 10:01 Antibody Screen Negative 04/05/21 10:01 Crossmatch See Detail 04/05/21 10:01 Radiology Reviewed: Yes Plan (1) Pneumonia due to COVID-19 virus: Status: Acute Plan: Mechanical ventilation (2) Acute respiratory failure: Status: Acute Plan: Will continue current treatment at this time. Currently waiting to see if patients family wants to private branch exchange operator to comfort measures later today.
[2021-04-08] MEDS ORDERED: MORPHINE SULFATE INJ 4 MG IVP PRN (15:36)
[2021-04-08 23:11] VITALS: BP 65/39
--- NOTE | 2021-04-09 19:36 | DR.DECEASE ---
FORM Date of Admission Date of Admission: 03/21/21 Admission Diagnosis Current Active Problems Problem Status Onset COPD exacerbation Pulmonary embolism Hypoxia Pulmonary fibrosis Discharge Diagnosis (1) Pneumonia due to COVID-19 virus: Problems (Updated 03/24/21 @ 09:39 by Manuel Gaytan) Acute respiratory failure (Acute) J96.00 Pneumonia due to COVID-19 virus (Acute) U07.1, J12.82 Abdominal pain (Acute) R10.9 GI bleed (Acute) K92.2 Bloody diarrhea (Acute) R19.7 Nausea (Acute) R11.0 Community acquired bacterial pneumonia (Acute) J15.9 COPD (chronic obstructive pulmonary disease) (Acute) J44.9 COPD (chronic obstructive pulmonary disease) with acute bronchitis (Acute) J44.0, J20.9 Acute exacerbation of chronic obstructive pulmonary disease (COPD) (Acute) J44.1 COPD exacerbation (Acute) J44.1 Pulmonary embolism (Acute) I26.99 Hypoxia (Acute) R09.02 Pulmonary fibrosis (Acute) J84.10 (2) Acute respiratory failure: Problems (Updated 03/24/21 @ 09:39 by Manuel Gaytan) Acute respiratory failure (Acute) J96.00 Pneumonia due to COVID-19 virus (Acute) U07.1, J12.82 Abdominal pain (Acute) R10.9 GI bleed (Acute) K92.2 Bloody diarrhea (Acute) R19.7 Nausea (Acute) R11.0 Community acquired bacterial pneumonia (Acute) J15.9 COPD (chronic obstructive pulmonary disease) (Acute) J44.9 COPD (chronic obstructive pulmonary disease) with acute bronchitis (Acute) J44.0, J20.9 Acute exacerbation of chronic obstructive pulmonary disease (COPD) (Acute) J44.1 COPD exacerbation (Acute) J44.1 Pulmonary embolism (Acute) I26.99 Hypoxia (Acute) R09.02 Pulmonary fibrosis (Acute) J84.10 (3) Acute exacerbation of chronic obstructive pulmonary disease (COPD): Problems (Updated 03/24/21 @ 09:39 by Manuel Gaytan) Acute respiratory failure (Acute) J96.00 Pneumonia due to COVID-19 virus (Acute) U07.1, J12.82 Abdominal pain (Acute) R10.9 GI bleed (Acute) K92.2 Bloody diarrhea (Acute) R19.7 Nausea (Acute) R11.0 Community acquired bacterial pneumonia (Acute) J15.9 COPD (chronic obstructive pulmonary disease) (Acute) J44.9 COPD (chronic obstructive pulmonary disease) with acute bronchitis (Acute) J44.0, J20.9 Acute exacerbation of chronic obstructive pulmonary disease (COPD) (Acute) J44.1 COPD exacerbation (Acute) J44.1 Pulmonary embolism (Acute) I26.99 Hypoxia (Acute) R09.02 Pulmonary fibrosis (Acute) J84.10 Labs Result Diagrams: 04/08/21 05:25 04/08/21 09:10 Home Medications Home Medications Medication Instructions Recorded Type albuterol sulfate 2 puff INHALATION Q4H PRN 03/20/21 History amlodipine 5 mg PO DAILY 03/20/21 History atorvastatin 20 mg PO QHS 03/20/21 History cefdinir 300 mg PO BID 03/20/21 History cyclobenzaprine 10 mg PO BID PRN 03/20/21 History divalproex 250 mg PO DAILY 03/20/21 History duloxetine 30 mg PO BID 03/20/21 History glycopyrrolate-formoterol [Bevespi 1 inh INHALATION BID 03/20/21 History Aerosphere] lisinopril 20 mg PO DAILY 03/20/21 History spironolactone 25 mg PO DAILY 03/20/21 History Hospital Course Hospital Course: The patient was admitted on 03/21/21 for Covid-19/Respiratory failure. She was treated with Covid -19 protocol but had a difficult time recovering from it. She developed respiratory failure and was put on ventilator. She later became anemic and required transfusions and platelets over the last few days of her hospitalization. On her last day her family decided to do comfort measures only and everything was discontinued except for comfort measures. She quietly passed shortly after. Expiration Expiration Date: 04/08/21 Expiration Time: 19:47 Pronounced by: Dr. Mcwilliams Preliminary Cause of : Cardiopulmonary Arrest
== END 2021-04-08 19:47 | disposition expired | DRG 207 ==
LOC: ER 19:31 → ICU 03-21 00:46
PROVIDERS: ADMIT Obstetrics & Gynecology Obstetrics; ATTEND Obstetrics & Gynecology Obstetrics
DX: R79.82 Elevated C-reactive protein (CRP); R06.02 Shortness of breath; I87.2 Venous insufficiency (chronic) (peripheral); J12.82 Pneumonia due to coronavirus disease 2019; B95.61 Methicillin susceptible Staphylococcus aureus infection as the cause of diseases classified elsewhere; J44.1 Chronic obstructive pulmonary disease with (acute) exacerbation; K92.1 Melena; I46.9 Cardiac arrest, cause unspecified; E87.0 Hyperosmolality and hypernatremia; J96.02 Acute respiratory failure with hypercapnia; I10 Essential (primary) hypertension; J84.10 Pulmonary fibrosis, unspecified; I26.93 Single subsegmental thrombotic pulmonary embolism without acute cor pulmonale; R26.89 Other abnormalities of gait and mobility; U07.1 COVID-19; B96.89 Other specified bacterial agents as the cause of diseases classified elsewhere; D89.839 Cytokine release syndrome, grade unspecified